=== PATIENT | female | born 1960 | race Caucasian/White ===

== ENCOUNTER 2024-05-24 13:37 | Outpatient (AMB) | payer MEDICARE, MEDICAID, SELFPAY ==
[2024-05-24 14:17] VITALS: BP 130/89; PULSE 91; RESP 18; TEMP 36.1; O2SAT 94; BMI 33.2
--- NOTE | 2024-05-24 14:17 | ORTHONT_ITS ---
Vital signs 05/24/24 14:17 Height 1.52 m Height Method Stated Weight 77.167 kg Weight Measurement Method Standing Scale BMI 33.2 BP 130/89 H Blood Pressure Source Automatic Cuff Blood Pressure Location Right Upper Arm Position Sitting Respiration 18 Pulse 91 Pulse Source Monitor Temp 96.9 F Temp Source Temporal Artery Scan Pulse Oximetry (%) 94 L Oxygen Delivery Method Room Air Med/Allergies Allergies & Medications Allergies No Known Allergies Allergy (Verified 05/24/24 14:18) Medication Reconciliation gabapentin 800 mg tablet 800 mg PO TID #30 tabs 12/14/21 [Rx] acetaminophen 500 mg capsule 500 mg PO Q6H PRN 05/24/24 [History Confirmed 05/24/24] amlodipine 10 mg tablet 10 mg PO QDAY 05/24/24 [History Confirmed 05/24/24] cholecalciferol (vitamin D3) 50 mcg (2,000 unit) capsule 50 mcg PO QDAY 05/24/24 [History Confirmed 05/24/24] cyclobenzaprine 10 mg tablet 10 mg PO HS 05/24/24 [History Confirmed 05/24/24] lisinopril 10 mg-hydrochlorothiazide 12.5 mg tablet 1 tab PO QDAY 05/24/24 [History Confirmed 05/24/24] metoprolol succinate 100 mg tablet,extended release 24 hr 100 mg PO QDAY 05/24/24 [History Confirmed 05/24/24] nortriptyline 50 mg capsule (Pamelor) 50 mg PO QDAY 05/24/24 [History Confirmed 05/24/24] Subjective Visit Visit for: new patient and knee Immunization / Flu Flu Vaccine in the Last 12 Months: No Flu Vaccine Exclusion Criteria: No Exclusion Criteria History of Present Illness Chief complaint: Right knee pain Date of injury / onset of symptoms: JUL 2023 Tabatha is a pleasant 64-year-old female with right knee pain that has been ongoing for at least 8 months. This occurred after a hiking injury. She is now using a walker and was previously not using a walker. She has a history of a TIA. She reports it is very difficult to bear weight because of the pain. He had an MRI which demonstrated meniscal tear and is here due to this. Personal History Occupation: RETIRED Red flag PMH: none Pain Pain level (0-10): 8 Pain duration: CONSTANT Pain location: inside (medial), outside (lateral) and anterior Pain quality: sharp, dull and aching Pain timing: increases with activity Ambulatory data Ambulatory device: none Treatments Improvement with previous injections: No Improvement with PT: No Improvement with NSAIDS: n/a Review of Systems Review of Systems: All systems negative unless otherwise noted in HPI. Exam Exam Patient is in no acute distress and is cooperative with the examination today. Breathing is nonlabored. Patient has a normal mood and affect. Bilateral extremities were evaluated and demonstrates sensation intact to light touch. Palpable pedal pulses are present. No significant edema is present. Bilateral hips were examined. The patient has no pain with log roll of the hips. Internal rotation to 30 degrees and external rotation to 30 degrees is painless. Negative FADIR. Left knee was examined today. The left knee is in reasonable alignment. Range of motion from 0-120 degrees. Knee is stable to varus and valgus as well as AP translation with <5mm. Patient has a negative McMurrays. There is no pain with patellofemoral compression and no crepitus noted. The knee is nontender to palpation. The right knee was also examined. The right knee is in [varus] alignment. Range of motion from [0-115] degrees. Knee is stable to varus and valgus as well as AP translation with <5mm. Patient has a [negative] McMurrays. There is [no] pain with patellofemoral compression and [no] crepitus noted. The knee is [tender] to palpation [medially]. An MRI demonstrates a posterior horn of the medial meniscus tear. She has x- rays that are nonweightbearing. This is not able to view. Assessment and Plan Problem List (1) Arthritis of right knee: Status: Acute (2) History of meniscal tear: Status: Acute Plan: Patient is a 64-year-old female with right knee pain after a hiking injury. She is MRI above the posterior horn medial meniscus tear. Is very difficult for her to bear weight. I would like to get weightbearing x-rays. We like to try nonoperative treatment including an injection at the next visit. We will probably start her on anti-inflammatories while We will see her in a week or two. Advanced Care Planning Discussion Advance care planning discussed with:: patient Office Procedures GNS Level of Care Nursing/Assessment Patient Status: Established Patient Nursing Assessment/Reassesment: Medication Reconciliation, Update PMH in EMR and Vital Signs Coordination of Care: Complex Care and Chronic Disease 1-5, Education Complex Pt/Fam, Consent,records obtained, informed consent, Results/Orders obtained and Staff clarify orders Established Patient Charge Established Patient Point Assignment: 95 Established Patient Point Charge: EP Level 3 (80-115) Past Medical History Past Medical History Have you ever been diagnosed with any of the following: Neurological Problems Cerebrovascular Accident (CVA): Yes (10 years ago) Cardiology Problems Congestive Heart Failure: No Hypertension: Yes Respiratory Problems Chronic Obstructive Pulmonary Disease (COPD): No Smoking: No Smoking Exposure: No Genital/Urinary Problems Renal Disease: No Kidney Stones: Yes Endocrine Problems Diabetes Mellitus Type 1: No Diabetes Mellitus Type 2: No Surgical History Hysterectomy: Yes
== END 2024-05-24 14:52 | disposition home or self-care (01) ==
LOC: HODSRG 13:37
PROVIDERS: PCP Nurse Practitioner Family; Referring Provider Nurse Practitioner Family; Supervising Provider Orthopaedic Surgery Adult Reconstructive Orthopaedic Surgery; Visit Provider Orthopaedic Surgery Adult Reconstructive Orthopaedic Surgery
DX: M17.11 Unilateral primary osteoarthritis, right knee (principal); M25.561 Pain in right knee; S83.249D Other tear of medial meniscus, current injury, unspecified knee, subsequent encounter; X58.XXXD Exposure to other specified factors, subsequent encounter; I10 Essential (primary) hypertension; Z86.73 Personal history of transient ischemic attack (TIA), and cerebral infarction without residual deficits
CPT/HCPCS: 99213; G0463

== ENCOUNTER 2024-05-31 10:03 | Outpatient (AMB) | payer MEDICARE, MEDICAID, SELFPAY ==
[2024-05-31 10:22] VITALS: BP 110/74; PULSE 92; RESP 18; TEMP 36.4; O2SAT 95; BMI 33.4
--- NOTE | 2024-05-31 10:22 | ORTHONT_ITS ---
Vital signs 05/31/24 10:22 Height 1.52 m Height Method Stated Weight 77.167 kg Weight Measurement Method Standing Scale BMI 33.4 BP 110/74 Blood Pressure Source Automatic Cuff Blood Pressure Location Right Upper Arm Position Sitting Respiration 18 Pulse 92 Pulse Source Monitor Temp 97.6 F Temp Source Temporal Artery Scan Pulse Oximetry (%) 95 Oxygen Delivery Method Room Air Med/Allergies Allergies & Medications Allergies No Known Allergies Allergy (Verified 05/31/24 10:25) Medication Reconciliation gabapentin 800 mg tablet 800 mg PO TID #30 tabs 12/14/21 [Rx Confirmed 05/31/24] acetaminophen 500 mg capsule 500 mg PO Q6H PRN 05/24/24 [History Confirmed 05/31/24] amlodipine 10 mg tablet 10 mg PO QDAY 05/24/24 [History Confirmed 05/31/24] cholecalciferol (vitamin D3) 50 mcg (2,000 unit) capsule 50 mcg PO QDAY 05/24/24 [History Confirmed 05/31/24] cyclobenzaprine 10 mg tablet 10 mg PO HS 05/24/24 [History Confirmed 05/31/24] lisinopril 10 mg-hydrochlorothiazide 12.5 mg tablet 1 tab PO QDAY 05/24/24 [History Confirmed 05/31/24] metoprolol succinate 100 mg tablet,extended release 24 hr 100 mg PO QDAY 05/24/24 [History Confirmed 05/31/24] nortriptyline 50 mg capsule (Pamelor) 50 mg PO QDAY 05/24/24 [History Confirmed 05/31/24] meloxicam 7.5 mg tablet 7.5 mg PO QDAY #45 tabs 05/31/24 [Rx] Subjective Visit Visit for: follow up visit and x-rays Immunization / Flu Flu Vaccine in the Last 12 Months: No Flu Vaccine Exclusion Criteria: No Exclusion Criteria History of Present Illness Chief complaint: XRAY RESULTS Date of injury / onset of symptoms: JUL 2023 Tabatha is a pleasant 64-year-old female with right knee pain that has been ongoing for at least 8 months. This occurred after a hiking injury. She is now using a walker and was previously not using a walker. She has a history of a TIA. She reports it is very difficult to bear weight because of the pain. He had an MRI which demonstrated meniscal tear and is here due to this. Personal History Occupation: RETIRED Red flag PMH: none Pain Pain level (0-10): 9 Pain duration: CONSTANT Pain location: inside (medial) Pain quality: sharp Pain timing: night, increases with activity and stairs Associated signs & symptoms: none Ambulatory data Ambulatory device: walker Treatments Improvement with previous injections: No Improvement with PT: No Improvement with NSAIDS: no Review of Systems Review of Systems: All systems negative unless otherwise noted in HPI. Exam Exam Patient is in no acute distress and is cooperative with the examination today. Breathing is nonlabored. Patient has a normal mood and affect. Bilateral extremities were evaluated and demonstrates sensation intact to light touch. Palpable pedal pulses are present. No significant edema is present. Bilateral hips were examined. The patient has no pain with log roll of the hips. Internal rotation to 30 degrees and external rotation to 30 degrees is painless. Negative FADIR. Left knee was examined today. The left knee is in reasonable alignment. Range of motion from 0-120 degrees. Knee is stable to varus and valgus as well as AP translation with <5mm. Patient has a negative McMurrays. There is no pain with patellofemoral compression and no crepitus noted. The knee is nontender to palpation. The right knee was also examined. The right knee is in [varus] alignment. Range of motion from [0-115] degrees. Knee is stable to varus and valgus as well as AP translation with <5mm. Patient has a [negative] McMurrays. There is [no] pain with patellofemoral compression and [no] crepitus noted. The knee is [tender] to palpation [medially]. An MRI demonstrates a posterior horn of the medial meniscus tear. X-rays demonstrate advanced medial joint space narrowing and osteophytes. Assessment and Plan Problem List (1) History of meniscal tear: Status: Acute (2) Arthritis of right knee: Status: Acute Plan: Tabatha is a pleasant 64-year-old female with right knee pain and significant medial compartment arthritis. We discussed nonoperative and operative options. We will start with a cortisone injection on the right and meloxicam Recommend knee cortisone injection as patient would like to proceed with conservative treatment at this time. The risks and benefits of the procedure were reviewed with the patient and patient gave verbal consent to continue with the procedure. Procedure: performed by Dr. Lang Using sterile technique the Right knee was thoroughly prepped with alcohol, and approximately 1 cc of Kenalog 40 mg/mL and 4 cc of 1% lidocaine was injected without resistance into the medial tibial femoral joint space. The patient tolerated the procedure. Advanced Care Planning Discussion Advance care planning discussed with:: patient Office Procedures GNS Level of Care Nursing/Assessment Patient Status: Established Patient Nursing Assessment/Reassesment: Medication Reconciliation, Update PMH in EMR and Vital Signs Coordination of Care: Complex Care and Chronic Disease 1-5, Education Complex Pt/Fam, Consent,records obtained, informed consent, Lab and Imaging orders, Results/Orders obtained and Staff clarify orders Established Patient Charge Established Patient Point Assignment: 110 Established Patient Point Charge: EP Level 3 (80-115) Surgical Proc/IM SQ injection Major Surgical Procedure: Yes (KNEE INJECTION) Medication Given Medication Given Medication Given: Yes Documented Dose Given: 4 Route: Infiitration Medication Given Medication Given Medication Given: Yes Documented Dose Given: 1 Route: Infiitration Office Meds Xylocaine 10 mg/mL (1 %) injection solution Performing Provider: Hubert Lang MD Performing Location: [facility] Administered by: Hubert Lang MD on 05/31/24 10:46 Dose Route Admin Location Dispensed Lot Number Expiration Date [facility] [employer] 20 mL Infiltration 20 mL [id number] 02/08/27 02648-293-23 [facility] triamcinolone acetonide 40 mg/mL suspension for injection Performing Provider: Hubert Lang MD Performing Location: [facility] Administered by: Hubert Lang MD on 05/31/24 10:46 Dose Route Admin Location Dispensed Lot Number Expiration Date [facility] [employer] 40 mg Infiltration 1 mL [id number] 02/08/26 [address]-0 [employer] Past Medical History Past Medical History Have you ever been diagnosed with any of the following: Neurological Problems Cerebrovascular Accident (CVA): Yes (10 years ago) Cardiology Problems Congestive Heart Failure: No Hypertension: Yes Respiratory Problems Chronic Obstructive Pulmonary Disease (COPD): No Smoking: No Smoking Exposure: No Genital/Urinary Problems Renal Disease: No Kidney Stones: Yes Endocrine Problems Diabetes Mellitus Type 1: No Diabetes Mellitus Type 2: No Surgical History Hysterectomy: Yes
== END 2024-05-31 10:43 | disposition home or self-care (01) ==
PROVIDERS: PCP Nurse Practitioner Family; Referring Provider Nurse Practitioner Family; Supervising Provider Orthopaedic Surgery Adult Reconstructive Orthopaedic Surgery; Visit Provider Orthopaedic Surgery Adult Reconstructive Orthopaedic Surgery
DX: M17.11 Unilateral primary osteoarthritis, right knee (principal); M25.561 Pain in right knee; Z87.828 Personal history of other (healed) physical injury and trauma; I10 Essential (primary) hypertension; Z86.73 Personal history of transient ischemic attack (TIA), and cerebral infarction without residual deficits
CPT/HCPCS: 20610; 99213; J3301; J3490; G0463

== ENCOUNTER 2024-06-12 10:03 | Inpatient (IN) | payer MEDICARE, MEDICAID, SELFPAY ==
[2024-06-12] VITALS (20 sets, daily range): BP systolic 107–166; BP diastolic 75–112; PULSE 96–127; RESP 16–34; TEMP 36.2–37.2; O2SAT 94–99; BMI 35.1; BMI 36.2
--- NOTE | 2024-06-12 10:19 | EKG_ITS ---
[facility] Test Date: 2024-06-12 Pat Name: ALIZE JOSE Department: Room: - Gender: Female [employer]grade Roller Operator: : [id number] Requested By: Obinna Egan Order Number: [id number] Reading MD: Obinna Egan Measurements Intervals [place] Rate: 120 P: 14 WI: 160 QRS: -44 QRSD: 158 T: 87 QT: 341 QTc: 484 Interpretive Statements SINUS TACHYCARDIA MARKED LEFT AXIS DEVIATION [QRS AXIS < -30] LEFT BUNDLE BRANCH BLOCK [120+ ms QRS DURATION, 80+ ms Q/S IN V1/V2, 85+ ms R IN I/aVL/V5/V6] Compared to ECG 08/08/2022 23:03:06 Left bundle-branch block now present Sinus rhythm no longer present Left ventricular hypertrophy no longer present ST (T wave) deviation no longer present Myocardial infarct finding no longer present /store/S0/[id number]/ecg/[id number].pdf
--- NOTE | 2024-06-12 10:36 | PC.NURSE ---
patient brought in by ambulance for shortness of breath that started yesterday morning.
[2024-06-12 10:37] LABS: Lactate (Lactic Acid) 2.4 mMol/L (0.4-2.0)
[2024-06-12 10:45] LABS: Basophils # (Auto) 0.2 Thou/mm3 (0.0-0.2); Basophils % (Auto) 1 % (0-2.5); Eosinophils # (Auto) 0.3 Thou/mm3 (0.0-0.5); Eosinophils % (Auto) 2 % (0-10); Hematocrit 38.1 % (36.0-46.0); Hemoglobin 12.2 g/dL (12.0-16.0); Immature Granulocytes % (Auto) 1 % (0-0); Lymphocytes # (Auto) 1.7 Thou/mm3 (1.0-4.8); Lymphocytes % (Auto) 8 % (10-50); Mean Corpuscular Hemoglobin 28.5 pg (25.0-35.0); Mean Corpuscular Volume 89 fL (80-100); Monocytes # (Auto) 1.4 Thou/mm3 (0.0-0.8); Monocytes % (Auto) 7 % (0-12); Neutrophils # (Auto) 16.9 Thou/mm3 (1.8-7.7); Neutrophils % (Auto) 82 % (37-80); Nucleated Red Blood Cell % 0 /100 WBC (0); Platelet Count 179 Thou/mm3 (140-440); RDW Standard Deviation 50.2 fL (36.4-46.3); Red Blood Count 4.28 Miln/mm3 (4.00-5.20); White Blood Count 20.7 Thou/mm3 (3.6-11.0)
--- NOTE | 2024-06-12 10:50 | PC.NURSE ---
Patient having severe respiratory distress, patient only able to speak 1-2 words at a time and states she is having trouble taking a deep breath, Dr. Egan and Dr. Juarez at bedside, new orders received, moved patient to room 5 and will call RT to place patient on bipap.
--- NOTE | 2024-06-12 10:54 | XR_ITS ---
Examination: AP chest single view Technique: Sitting portable AP chest single view Exam date and time: June 12, 2024 1111 hrs. Indications: Shortness of breath today. Findings: Mild to moderate CHF Mild enlargement cardiac contour with prominent vascular congestion including central vascular engorgement and perihilar edema Large right pleural effusion small left pleural effusion Impression: [id number] CHF
--- NOTE | 2024-06-12 11:05 | ECHO_ITS ---
Transthorac ic Echo Report Ht 58 Wt 16 (in): (lb): 8 Exam Location: Portable Statu Preadmit s: Sonograph Hilda Carranza er: Indicatio ns: Procedure Performed: BP 138 / 89 HR 103 : : Rhyth Atrial fibrillation m: Technical Technically difficult study Quality: MEASUREMEN (Male / Female) Normal TS Values 2D ECHO LV Diastolic Diameter PLAX 4.9 cm 4.2 - 5.9 / 3.9 - 5.3 cm LV Systolic Diameter PLAX 4.0 cm IVS Diastolic Thickness 0.9 cm 0.6 - 1.0 / 0.6 - 0.9 cm LVPW Diastolic Thickness 0.9 cm 0.6 - 1.0 / 0.6 - 0.9 cm LV Relative Wall Thickness 0.4 LVOT Diameter 1.9 cm LA Volume Index 32.7 cm?/m? 16 - 28 cm?/m? Ascending Aorta Diameter 3.6 cm M-MODE Aortic Root Diameter MM 2.3 cm LA Systolic Diameter MM 3.6 cm LA Ao Ratio MM 1.6 AV Cusp Separation MM 2.1 cm DOPPLER AV Peak Velocity 121.0 cm/s AV Peak Gradient 5.9 mmHg AV Mean Gradient 3.0 mmHg AV Velocity Time Integral 18.5 cm LVOT Peak Velocity 66.0 cm/s LVOT Peak Gradient 1.7 mmHg LVOT Velocity Time Integral 11.9 cm LVOT Cardiac Index 1924.8 cm?/min?m? AV Area Cont Eq vti 1.8 cm? AV Area Cont Eq pk 1.5 cm? MV Peak Velocity 168.0 cm/s MV Peak Gradient 11.3 mmHg MV Mean Velocity 99.8 cm/s MV Mean Gradient 5.0 mmHg MV Area PHT 5.6 cm? MR Peak Velocity 360.0 cm/s MR Peak Gradient 51.8 mmHg Mitral E Point Velocity 148.0 cm/s Mitral A Point Velocity 0.7 cm/s Mitral E to A Ratio 218.6 LV E' Lateral Velocity 8.3 cm/s Mitral E to LV E' Lateral Ratio 17.9 LV E' Septal Velocity 6.0 cm/s Mitral E to LV E' Septal Ratio 24.7 TR Peak Velocity 201.0 cm/s TR Peak Gradient 16.2 mmHg FINDING S Left Ventricle Normal left ventricular size, wall thickness. Moderate systolic dysfunction. Akinesis anterior septal. Moderate hypokinesis lateral wall. The ejection fraction is visually estimated at 35-40%. Right Ventricle The right ventricle is normal in size and systolic function. The estimated right ventricular systolic pressure, 21mmHg. RAP 5. Left Atrium The left atrium is normal by two-dimensional, color flow and Doppler imaging with no structural abnormalities, no thrombus formation present. Right Atrium The right atrium is normal by two-dimensional imaging, color flow and Doppler imaging with no structural abnormalities, no thrombus formation present. Atrial Septum The interatrial septum appears normal with no evidence of a shunt. Aort a The ascending aorta is mildly dilated. Mitral Valve The mitral valve is mildly MAC. There is mild mitral valve regurgitation. Aortic Valve The aortic valve is trileaflet and normal by two-dimensional, color flow and Doppler interrogation. There is no significant aortic valve regurgitation. Tricuspid Valve The tricuspid valve is normal by two-dimensional, color flow and Doppler interrogation. There is trace tricuspid valve regurgitation. Pulmonic Valve There is no significant pulmonic valve regurgitation. Vesse ls The pulmonary artery appears normal. The inferior vena cava pulmonary and hepatic veins appear normal. Pericard ium The pericardium is normal by two-dimensional imaging. There is no significant pericardial effusion. Other Findings Pleural effusion present. CONCLUSIO NS Indication: CHF Normal LV size. Severe systolic dysfunction. EF 30-35%. Septal and lateral wall dysynchrony. Cannot determine dystolic function due to AFib. Normal RV size and function. Ascending aorta mildly dilated. 3.6cm. Mild MAC. Mild MR Trace TR. Pleural effusion present. Vikram Delarosa (Electronically Signed) Final Date: 13 June 2024 16:45
[2024-06-12 11:15] LABS: INR 1.1 (0.9-1.3); Partial Thromboplastin Time 28.7 Seconds (22.0-36.0); Prothrombin Time 12.2 Seconds (9.0-12.2)
[2024-06-12] MEDS: NITROGLYCERIN 0.4 MG SUBL BTL #25 SL ×2 (11:17→11:27)
[2024-06-12] MEDS: ENALAPRILAT INJ 1.25 MG/ML VIAL 0.625 MG IVP (11:21)
[2024-06-12] MEDS: hydrALAZINE INJ 20 MG/ML VIAL 10 MG IV (11:21)
[2024-06-12] MEDS: NITROGLYCERIN OINT 2% 1 INCH PACKET 2 INCH TOP (11:22)
[2024-06-12 11:23] LABS: Anion Gap 9 (7-16); BUN/Creatinine Ratio 14 Ratio (12-20); Blood Urea Nitrogen 14 mg/dL (9-23); Carbon Dioxide 25.7 mMol/L (20.0-31.0); Chloride 104 mMol/L (98-107); Potassium 4.3 mMol/L (3.4-5.1); Sodium 139 mMol/L (136-145)
[2024-06-12 11:24] LABS: Alanine Aminotransferase 22 U/L (10-49); Albumin, Serum 4.6 gm/dL (3.4-4.8); Albumin/Globulin Ratio 1.8 (1.2-2.2); Alkaline Phosphatase 93 U/L (46-116); Aspartate Amino Transferase 18 U/L (0-34); Bilirubin,Total 0.6 mg/dL (0.3-1.2); Calcium 9.8 mg/dL (8.3-10.6); Calcium (Corrected) 9.8 mg/dL (8.5-10.1); Estimated Creatinine Clearance 48.1 mL/min (>60); Globulin 2.5 gm/dL (2.3-3.5); Glucose 137 mg/dL (74-106); Osmolality,Calculated 280 (275-295); Total Protein 7.1 gm/dL (5.7-8.2); Troponin I 0.044 ng/mL (0.0-0.045); eGFR > 60 See Note
[2024-06-12 11:31] LABS: Procalcitonin 0.08 ng/ml (0.0-0.49)
[2024-06-12 11:34] LABS: Base Excess 0 (-3-3); HCO3 23 mEq/L (20-26); Inspired Oxygen, FIO2 50 %; O2 Saturation 98 % (91-98); PCO2 34 mmHg (32.0-48.0); PO2 135 mmHg (83-108); pH, Arterial 7.45 (7.35-7.45)
[2024-06-12 11:35] LABS: Allen Test Not Performed; Puncture Site Left Radial
--- NOTE | 2024-06-12 11:36 | PC.NURSE ---
Patient feeling better on bipap, patient denies chest pain at this time, call light within reach.
[2024-06-12] MEDS: FUROSEMIDE INJ 10 MG/ML 4ML VIAL 40 MG IVP ×2 (11:47→20:49)
--- NOTE | 2024-06-12 11:47 | PD.EDADULT ---
ED General RME/HPI General Chief complaint: Shortness of Breath/Dyspnea Stated complaint: sob Time Seen by Provider: 06/12/24 10:31 Arrival date/time: 06/12/24 10:03 RME / HPI RME / HPI narrative: A 64-year-old female with past medical history of hypertension, stroke 5 years ago,COVID pneumonia, and osteoporosis presented in the ED brought in by EMS on 06/12/2024 with chief complaint of shortness of breath and chest pain. Patient states that shortness of breath started 2 days ago. She felt pressure across her chest started 2 days ago. She felt like she could not breathe . This chest pressure was not associated with any headache, fever, chills, nausea, vomiting, diarrhea or constipation. This morning at around 6 AM, the morning of 06/15/2020 on the morning of 06/12/2024, patient started to note sharp chest pain that radiated to her left shoulder. Denies palpitations, diaphoresis, nausea/vomiting, or dizziness. Patient endorses that she had 1 sick contact over the past week, her neighbor. The neighbor had a cough and sore throat. Denies recent travel. Patient denies any allergies. She required 2 DuoNeb treatments in the ambulance, which were given. Patient also required titrating from nasal cannula to BiPAP in the ED. Home medications: metoprolol, nortriptyline, Flexeril, gabapentin. She was recently taken off amlodipine and another antihypertensive by primary care provider, which likely contributed to recent presentation. Surgical history includes , appendectomy, and tubal ligation. Social history includes occasional alcohol use. Denies smoking or illicit drug use. Contacted hospitalist team for admission for new onset CHF exacerbation and pulmonary hypertension. MD complaint: Shortness of breath and chest pain Location: chest Radiation: other Severity: moderate Severity scale (1-10): 6 Quality: sharp Consistency: intermittent Exacerbating factors: none Related Data Home Medications ?Medication ?Instructions ?Recorded ?Confirmed acetaminophen 500 mg capsule 500 mg PO Q6H PRN Breakthrough 05/24/24 06/12/24 Pain, Mild cholecalciferol (vitamin D3) 50 50 mcg PO QWEEK 05/24/24 06/12/24 mcg (2,000 unit) capsule cyclobenzaprine 10 mg tablet 10 mg PO BID 05/24/24 06/12/24 metoprolol succinate 100 mg 100 mg PO HS 05/24/24 06/12/24 tablet,extended release 24 hr nortriptyline 50 mg capsule 100 mg PO HS 05/24/24 06/13/24 (Pamelor) gabapentin 800 mg tablet 100 mg PO HS 06/12/24 06/13/24 meloxicam 7.5 mg tablet 7.5 mg PO HS 06/12/24 06/12/24 sodium zirconium cyclosilicate 10 10 g PO DAILY 06/12/24 06/12/24 gram oral powder packet (Lokelma) Allergies Allergy/AdvReac Type Severity Reaction Status Date / Time Penicillins Allergy Severe Hives Verified 06/12/24 10:46 Review of Systems Review of Systems Systems Reviewed: All systems reviewed, normal except as documented Past Medical History Family History OTHER FAMILY HX: None Surgical History SURGICAL: Positive Hysterectomy and Section Travel History EBOLA RISK: No Past Medical History Comments PMH COMMENT: Per previous visit note: Past Medical History NEUROLOGIC: Positive Neurological Disorders and Cerebrovascular Accident (10 years ago) CARDIAC: Positive Hypertension GENITOURINARY: Positive Kidney Stones Surgical History SURGICAL: Positive Gastric Bypass Surgery, Hysterectomy and Section ED Exam Narrative Physical exam: Constitutional: well-developed, well-nourished, in mild distress, lying in bed. HEENT: NCAT, EOMI, reactive round pupils b/l, patent nares b/l, moist mucous membranes, on 6L N/c--> Saturating 99% on Bipap Lung: No wheezing, b/l crackles lower lung lobes, dullness on auscultation in right lower lung lobe. Heart: Regular S1S2, no murmurs, gallops, or rubs. +JVD. Abdomen: Soft, non-distended, non-tender, ++ BS all 4 quadrants. Extremities: No cyanosis, clubbing, No edema of b/l UE and LE, 2+ dorsalis pedis pulses present b/l Neurologic: No focal sensory or motor deficits noted, alert and oriented to person, place, time. appropriate affect Skin: Warm, dry, no lesions or rashes noted. Course Quality Measures none Orders Category Date Time Status Patient Condition Routine Admission 06/12/24 14:10 Ordered Tank Truck [employer] Q4H START 00 Care 06/12/24 10:21 Active Continuous Pulse Oximetry NOW Care 06/12/24 10:21 Completed EKG (ED ONLY) *Do not use* NOW Care 06/12/24 10:19 Completed Flu & Pneumonia Vaccine Screen ONCE Care 06/12/24 14:15 Completed Villagomez [Urinary Catheter] QS Care 06/12/24 11:39 Active Insert IV NOW Care 06/12/24 10:21 Active Miscellaneous Nursing Order NOW Care 06/12/24 13:32 Completed Miscellaneous Nursing Order NOW Care 06/12/24 16:02 Completed Miscellaneous Nursing Order NOW Care 06/12/24 16:07 Completed Notify provider NEEDED Care 06/12/24 14:10 Active Strict Intake and Output Q1H Care 06/12/24 10:30 Ordered Strict Intake and Output Q1H Care 06/12/24 11:30 Ordered Strict Intake and Output Q1H Care 06/12/24 12:30 Ordered Strict Intake and Output Q1H Care 06/12/24 13:30 Ordered Strict Intake and Output Q1H Care 06/12/24 14:30 Ordered Strict Intake and Output Q1H Care 06/12/24 15:30 Ordered Strict Intake and Output Q1H Care 06/12/24 16:30 Ordered Strict Intake and Output Q1H Care 06/12/24 17:30 Ordered Strict Intake and Output Q1H Care 06/12/24 18:30 Ordered Strict Intake and Output Q1H Care 06/12/24 19:30 Ordered Strict Intake and Output Q1H Care 06/12/24 20:30 Ordered Strict Intake and Output Q1H Care 06/12/24 21:30 Ordered Strict Intake and Output Q1H Care 06/12/24 22:30 Ordered Strict Intake and Output Q1H Care 06/12/24 23:30 Ordered Strict Intake and Output Q1H Care 06/13/24 00:30 Ordered Strict Intake and Output Q1H Care 06/13/24 01:30 Ordered Strict Intake and Output Q1H Care 06/13/24 02:30 Ordered Strict Intake and Output Q1H Care 06/13/24 03:30 Ordered Strict Intake and Output Q1H Care 06/13/24 04:30 Ordered Strict Intake and Output Q1H Care 06/13/24 05:30 Ordered Strict Intake and Output Q1H Care 06/13/24 06:30 Ordered Strict Intake and Output Q1H Care 06/13/24 07:30 Ordered Strict Intake and Output Q1H Care 06/13/24 08:30 Ordered Strict Intake and Output Q1H Care 06/13/24 09:30 Ordered Consult to Cardiology Routine Cons 06/12/24 14:23 Ordered Diet Low Sodium (2gm) Diet 06/12/24 Dinner Completed CA echo doppler complete Stat Exams 06/12/24 11:05 Completed EKG (ED Only) Stat Exams 06/12/24 10:19 Draft XR chest 1V portable Stat Exams 06/12/24 10:54 Completed ABG [Arterial Blood Gas] Stat Lab 06/12/24 11:25 Completed BNP [B-Type Natriuretic Peptide] Stat Lab 06/12/24 10:12 Completed Blood Culture (Lab) Stat Lab 06/12/24 10:12 Results CBC AM DRAW Lab 06/13/24 05:20 Completed CBC AM DRAW Lab 06/14/24 05:00 Completed CBC AM DRAW Lab 06/15/24 05:32 Completed CBC Stat Lab 06/12/24 10:12 Completed Comprehensive Metabolic Panel AM DRAW Lab 06/13/24 05:20 Completed Comprehensive Metabolic Panel AM DRAW Lab 06/14/24 05:00 Completed Comprehensive Metabolic Panel AM DRAW Lab 06/15/24 05:32 Completed Comprehensive Metabolic Panel Stat Lab 06/12/24 10:12 Completed Lactate (Lactic Acid) Stat Lab 06/12/24 10:12 Completed Lactic Acid, 3 HR Stat Lab 06/12/24 13:49 Completed Lipid Panel AM DRAW Lab 06/13/24 05:20 Completed Magnesium AM DRAW Lab 06/13/24 05:20 Completed Partial Thromboplastin Time Stat Lab 06/12/24 10:12 Completed Procalcitonin Stat Lab 06/12/24 10:12 Completed Prothrombin Time with INR Stat Lab 06/12/24 10:12 Completed Thyroid Stimulating Hormone AM DRAW Lab 06/13/24 05:20 Completed Troponin I Stat Lab 06/12/24 10:12 Completed Urinalysis Stat Lab 06/12/24 11:53 Completed Urine Culture Stat Lab 06/12/24 11:53 Completed Acetaminophen Tab [Tylenol Tab] Med 06/12/24 14:10 Active 650 mg PO Q6H PRN Azithromycin Inj [Zithromax Inj] 500 mg Med 06/12/24 11:45 Discontinued Sodium Chloride 0.9% 250 ml [Ns] 250 ml IV X1 Doxycycline Inj [Vibramycin Inj] 100 mg Med 06/12/24 14:30 Discontinued Sodium Chloride 0.9% (P) [NS 0.9% mini bag] 100 ml IV BID Enalaprilat Inj [Vasotec Inj] Med 06/12/24 11:01 Discontinued 0.625 mg IVP X1 ONE Furosemide Inj [Lasix Inj] Med 06/12/24 21:00 Discontinued 40 mg IVP BID Furosemide Inj [Lasix Inj] Med 06/12/24 11:37 Discontinued 40 mg IVP X1 ONE Heparin Inj Med 06/12/24 14:15 Discontinued 5,000 unit SC Q12H Heparin Inj Med 06/12/24 21:00 Discontinued 5,000 unit SC Q12HR Midodrine [Proamatine] Med 06/12/24 14:15 Discontinued 5 mg PO BID PRN Nitroglycerin Oint 2% [Nitro-paste Oint 2%] Med 06/12/24 11:15 Discontinued 2 inch TOP X1 ONE Nitroglycerin [Nitrostat 1/150] Med 06/12/24 10:56 Discontinued 0.4 mg SL X1 ONE Nitroglycerin [Nitrostat 1/150] Med 06/12/24 11:27 Discontinued 0.4 mg SL X1 ONE Ondansetron Inj [Zofran Inj] Med 06/12/24 14:15 Active 4 mg IV Q6H PRN Pantoprazole Inj [Protonix Inj] Med 06/13/24 09:00 Active 40 mg IVP QDAY cefTRIAXone/D5w 1gm IV premix [Rocephin/D5w 1gm IV Med 06/13/24 09:00 Active premix] 50 ml IV DAILY cefTRIAXone/D5w 1gm IV premix [Rocephin/D5w 1gm IV Med 06/12/24 11:44 Discontinued premix] 50 ml IV X1 hydrALAZINE INJ [Apresoline Inj] Med 06/12/24 10:56 Discontinued 10 mg IV X1 ONE Code Status Routine Oth 06/12/24 14:10 Completed BiPAP / CPAP NOW RT 06/12/24 11:05 Active Oxygen Delivery DAILY RT 06/12/24 14:11 Active Oxygen Delivery NOW RT 06/12/24 10:21 Active Transfer Order Routine Transfer 06/12/24 15:50 Completed Vital Signs Vital signs: Vital Signs Temperature 99 F 06/12/24 10:04 Pulse Rate 127 H 06/12/24 10:04 Respiratory Rate 24 H 06/12/24 10:04 Blood Pressure 161/112 H 06/12/24 10:04 Pulse Oximetry (%) 94 L 06/12/24 10:04 Oxygen Delivery Method Nasal Cannula 06/12/24 10:04 Oxygen Flow Rate 6 06/12/24 10:04 [facility] Patient data External records reviewed:: None Clinical information provided by:: patient Social determinants that could affect healthcare access:: none Patient has the following chronic illnesses:: Hypertension osteoporosis CVA How is presenting disease/condition affected by chronic disease/condition?: exacerbated by Evaluation data The following diagnostics were reviewed and interpreted by me:: lab results, radiology exam(s) and EKG tracing(s) Lab and/or radiology exams considered but not ordered:: None Interpretation Summary: CBC: WBC 20.7 ABG: pH 7.45, pCO2 34, pO2 135, bicarb 23, O2 sat 98%. Lactic acid 2.4 BNP 1048. Chest x-ray: Mild to moderate CHF Mild enlargement cardiac contour with prominent vascular congestion including central vascular engorgement and perihilar edema Large right pleural effusion small left pleural effusion EKG: Sinus tachycardia, heart rate 120. Medications Medications considered but not ordered:: None Medication administrations:: Medication Administration History Acetaminophen (Acetaminophen 325 Mg Tablet) 650 mg PO Q6H PRN PRN Reason: Fever >100.3 Stop: 07/12/24 14:09 Last Admin: 06/16/24 04:45 Dose: 650 mg Documented By: Admin: 06/15/24 09:08 Dose: 650 mg Documented By: Admin: 06/15/24 00:11 Dose: 650 mg Documented By: Admin: 06/13/24 22:45 Dose: 650 mg Documented By: Admin: 06/13/24 13:28 Dose: 650 mg Documented By: Admin: 06/13/24 05:24 Dose: 650 mg Documented By: NELY Bismuth Subsalicylate (Bismuth Subsalicyl 1 Tablet (Pepto-Bismol)) 1 tab PO Q1HR PRN PRN Reason: UPSET STOMACH/INDIGESTION Stop: 07/15/24 16:14 Last Admin: 06/16/24 04:48 Dose: 1 tab Documented By: Admin: 06/15/24 18:12 Dose: 1 tab Documented By: REYNA Dapagliflozin (Dapagliflozin Propanediol 5 Mg Tablet) 5 mg PO QAM [facility] Stop: 07/15/24 14:59 Last Admin: 06/16/24 08:41 Dose: 5 mg Documented By: Admin: 06/15/24 17:30 Dose: 5 mg Documented By: REYNA Furosemide (Furosemide Inj 10 Mg/Ml 4ml Vial) 40 mg IVP QDAY STEPAN Stop: 07/15/24 08:59 Gabapentin (Gabapentin 100 Mg Capsule) 100 mg PO [facility] Stop: 07/13/24 20:59 Last Admin: 06/15/24 21:02 Dose: 100 mg Documented By: Admin: 06/14/24 20:33 Dose: 100 mg Documented By: Admin: 06/13/24 20:15 Dose: 100 mg Documented By: MARIAN Ceftriaxone Sodium/Dextrose (Rocephin/D5w 1gm Iv Premix) 50 mls @ 100 mls/hr IV DAILY STEPAN Stop: 06/20/24 08:59 Last Admin: 06/16/24 08:45 Dose: 100 mls/hr Documented By: Infusion: 06/15/24 09:37 Dose: Infused Documented By: Admin: 06/15/24 09:07 Dose: 100 mls/hr Documented By: Infusion: 06/14/24 09:38 Dose: Infused Documented By: Admin: 06/14/24 09:08 Dose: 100 mls/hr Documented By: Infusion: 06/13/24 09:05 Dose: Infused Documented By: Admin: 06/13/24 08:35 Dose: 100 mls/hr Documented By: REYNA Melatonin (Melatonin 3 Mg Tablet) 3 mg PO [facility] Stop: 07/13/24 20:59 Last Admin: 06/15/24 21:02 Dose: 3 mg Documented By: Admin: 06/14/24 20:33 Dose: 3 mg Documented By: Admin: 06/13/24 20:15 Dose: 3 mg Documented By: MARIAN Metoprolol Succinate (Metoprolol Succinate Xl 25 Mg Tabcr) 50 mg PO [facility] Stop: 07/15/24 20:59 Last Admin: 06/15/24 21:00 Dose: 50 mg Documented By: NELY Ondansetron HCl (Ondansetron Inj 2 Mg/Ml Inj 2 Ml) 4 mg IV Q6H PRN; Protocol PRN Reason: NAUSEA OR VOMITING Stop: 07/12/24 14:14 Pantoprazole Sodium (Pantoprazole Inj 40 Mg Vial) 40 mg IVP QDAY [facility] Stop: 07/13/24 08:59 Last Admin: 06/16/24 09:00 Dose: Not Given Documented By: CLAUDIO Non-Admin Reason: Patient Refused Admin: 06/15/24 09:31 Dose: 40 mg Documented By: Admin: 06/14/24 09:04 Dose: 40 mg Documented By: Admin: 06/13/24 08:37 Dose: 40 mg Documented By: REYNA Sacubitril/Valsartan (Sacubitril 24 Mg/Valsartan 26 Mg Tablet) 1 tab PO BID [facility] Stop: 07/15/24 20:59 Last Admin: 06/16/24 08:45 Dose: Not Given Documented By: FRANKLYN Non-Admin Reason: Held per MD Admin: 06/15/24 21:02 Dose: 1 tab Documented By: NELY Spironolactone (Spironolactone 25 Mg Tablet) 25 mg PO QDAY [facility] Stop: 07/16/24 08:59 Last Admin: 06/16/24 08:41 Dose: 25 mg Documented By: FRANKLYN Discontinued Medications Atropine Sulfate (Atropine Sulf Inj 1 Mg/Ml Vial) Confirm Administered Dose 1 mg .ROUTE .STK-MED ONE Stop: 06/15/24 11:17 Last Admin: 06/15/24 13:20 Dose: Not Given Documented By: Non-Admin Reason: Duplicate Medication on eMAR Celecoxib (Celecoxib 100 Mg Capsule) 100 mg PO X1 ONE Stop: 06/12/24 17:57 Last Admin: 06/12/24 19:55 Dose: 100 mg Documented By: NELY Diphenhydramine HCl (Diphenhydramine Inj 50 Mg/Ml Vial) 50 mg IVP X1 ONE Stop: 06/14/24 23:08 Enalaprilat (Enalaprilat Inj 1.25 Mg/Ml Vial) 0.625 mg IVP X1 ONE Stop: 06/12/24 11:02 Last Admin: 06/12/24 11:21 Dose: 0.625 mg Documented By: FARNAZ Epinephrine HCl (Epinephrine Inj 0.1 Mg/Ml Syringe 10ml) Confirm Administered Dose 1 mg .ROUTE .STK-MED ONE Stop: 06/15/24 11:18 Last Admin: 06/15/24 13:22 Dose: Not Given Documented By: Non-Admin Reason: Duplicate Medication on eMAR Famotidine (Famotidine Inj 10 Mg/Ml Vial 2 Ml) 20 mg IVP X1 ONE Stop: 06/14/24 23:08 Fentanyl Citrate (Fentanyl Cit Inj 50 Mcg/Ml Amp 2ml) Confirm Administered Dose 100 mcg .ROUTE .STK-MED ONE Stop: 06/15/24 11:17 Last Admin: 06/15/24 13:21 Dose: Not Given Documented By: Non-Admin Reason: Duplicate Medication on eMAR Flumazenil (Flumazenil Inj 0.1 Mg/Ml Vial 10 Ml) Confirm Administered Dose 1 mg .ROUTE .STK-MED ONE Stop: 06/15/24 11:17 Last Admin: 06/15/24 13:21 Dose: Not Given Documented By: Non-Admin Reason: Duplicate Medication on eMAR Furosemide (Furosemide Inj 10 Mg/Ml 4ml Vial) 40 mg IVP X1 ONE Stop: 06/12/24 11:38 Last Admin: 06/12/24 11:47 Dose: 40 mg Documented By: EF Furosemide (Furosemide Inj 10 Mg/Ml 4ml Vial) 40 mg IVP BID [facility] Stop: 07/12/24 20:59 Last Admin: 06/14/24 09:05 Dose: 40 mg Documented By: Admin: 06/13/24 20:16 Dose: 40 mg Documented By: Admin: 06/13/24 08:36 Dose: 40 mg Documented By: Admin: 06/12/24 20:49 Dose: 40 mg Documented By: NELY Heparin Sodium (Porcine) (Heparin Sod Inj 5000 Unit/Ml Vial) 5,000 unit SC Q12H [facility] Stop: 06/26/24 14:14 Last Admin: 06/12/24 14:49 Dose: 5,000 unit Documented By: FARNAZ Co-signed By: DEEP Heparin Sodium (Porcine) (Heparin Sod Inj 5000 Unit/Ml Vial) 5,000 unit SC Q12HR STEPAN Stop: 06/26/24 14:14 Last Admin: 06/14/24 20:34 Dose: Not Given Documented By: NELY Non-Admin Reason: Patient Refused Admin: 06/14/24 16:22 Dose: Not Given Documented By: LUISA Non-Admin Reason: Held for Procedure Admin: 06/13/24 20:16 Dose: 5,000 unit Documented By: MARIAN Co-signed By: YUNG Admin: 06/13/24 08:35 Dose: 5,000 unit Documented By: REYNA Co-signed By: TASHA Admin: 06/12/24 20:51 Dose: 5,000 unit Documented By: NELY Co-signed By: MARIAN Heparin Sodium (Porcine) (Heparin Sod Inj 1000 Unit/Ml Vial 10 Ml) Confirm Administered Dose 20,000 unit .ROUTE .STK-MED ONE Stop: 06/15/24 11:18 Last Admin: 06/15/24 13:22 Dose: Not Given Documented By: Non-Admin Reason: Duplicate Medication on eMAR Hydralazine HCl (Hydralazine Inj 20 Mg/Ml Vial) 10 mg IV X1 ONE Stop: 06/12/24 10:57 Last Admin: 06/12/24 11:21 Dose: 10 mg Documented By: FARNAZ Hydralazine HCl (Hydralazine Inj 20 Mg/Ml Vial) 10 mg IV X1 ONE Stop: 06/15/24 13:56 Last Admin: 06/15/24 14:05 Dose: 10 mg Documented By: Hydralazine HCl (Hydralazine Inj 20 Mg/Ml Vial) Confirm Administered Dose 20 mg .ROUTE .STK-MED ONE Stop: 06/15/24 13:53 Last Admin: 06/15/24 14:20 Dose: Not Given Documented By: Non-Admin Reason: Duplicate Medication on eMAR Hydrocortisone Sodium Succinate (Hydrocortisone Sod Succ Inj 100 Mg Vial) 100 mg IV X1 ONE Stop: 06/14/24 23:08 Ceftriaxone Sodium/Dextrose (Rocephin/D5w 1gm Iv Premix) 50 mls @ 100 mls/hr IV X1 ONE Stop: 06/12/24 12:13 Last Infusion: 06/12/24 12:31 Dose: Infused Documented By: Admin: 06/12/24 12:01 Dose: 100 mls/hr Documented By: EF Azithromycin 500 mg/ Sodium (Chloride) 250 mls @ 250 mls/hr IV X1 ONE Stop: 06/12/24 12:44 Last Infusion: 06/12/24 14:00 Dose: Infused Documented By: Admin: 06/12/24 12:46 Dose: 250 mls/hr Documented By: FARNAZ Doxycycline Hyclate 100 mg/ (Sodium Chloride) 100 mls @ 100 mls/hr IV BID STEPAN Stop: 06/19/24 14:29 Last Admin: 06/14/24 09:08 Dose: 100 mls/hr Documented By: Infusion: 06/13/24 21:15 Dose: Infused Documented By: Admin: 06/13/24 20:15 Dose: 100 mls/hr Documented By: Infusion: 06/13/24 11:11 Dose: Infused Documented By: Admin: 06/13/24 10:11 Dose: 100 mls/hr Documented By: Infusion: 06/12/24 21:46 Dose: Infused Documented By: Admin: 06/12/24 20:46 Dose: 100 mls/hr Documented By: Infusion: 06/12/24 16:00 Dose: Infused Documented By: Admin: 06/12/24 14:49 Dose: 100 mls/hr Documented By: FARNAZ Magnesium Sulfate (Magnesium Sulfate Ivpb) 4 gm in 50 mls @ 12.5 mls/hr IV X1 ONE Stop: 06/13/24 11:49 Last Admin: 06/13/24 14:02 Dose: 12.5 mls/hr Documented By: REYNA Magnesium Sulfate (Magnesium Sulfate Ivpb) 4 gm in 50 mls @ 12.5 mls/hr IV X1 ONE Stop: 06/13/24 15:59 Last Admin: 06/13/24 17:01 Dose: 12.5 mls/hr Documented By: REYNA Sodium Chloride (Ns 0.45%) 500 mls @ 100 mls/hr IV .Q5H STEPAN Stop: 06/15/24 04:14 Nitroglycerin/Dextrose (Nitroglycerin In D5w Ivpb) Confirm Administered Dose 50 mg in 250 mls @ ud IV .STK-MED ONE Stop: 06/15/24 11:18 Last Admin: 06/15/24 13:22 Dose: Not Given Documented By: Non-Admin Reason: Duplicate Medication on eMAR Lidocaine HCl (Lidocaine Inj Pf 1% 30 Ml Vial) Confirm Administered Dose 30 ml .ROUTE .STK-MED ONE Stop: 06/15/24 11:17 Last Admin: 06/15/24 13:21 Dose: Not Given Documented By: Non-Admin Reason: Duplicate Medication on eMAR Melatonin (Melatonin 3 Mg Tablet) 3 mg PO [facility] Stop: 07/13/24 17:44 Last Admin: 06/13/24 18:38 Dose: Not Given Documented By: TASHA Non-Admin Reason: Wrong Time Meloxicam (Meloxicam 7.5 Mg Tablet) 7.5 mg PO DAILY PRN PRN Reason: INFLAMMATION Stop: 07/13/24 20:59 Metoprolol Succinate (Metoprolol Succinate Xl 25 Mg Tabcr) 100 mg PO QDAY [facility] Stop: 07/14/24 10:14 Last Admin: 06/15/24 09:09 Dose: 100 mg Documented By: Admin: 06/14/24 10:27 Dose: 100 mg Documented By: LUISA Metoprolol Succinate (Metoprolol Succinate Xl 25 Mg Tabcr) 50 mg PO [facility] Stop: 07/15/24 08:59 Metoprolol Succinate (Metoprolol Succinate Xl 25 Mg Tabcr) 50 mg PO QDAY [facility] Stop: 07/16/24 08:59 Metoprolol Tartrate (Metoprolol Tartrate 25 Mg Tablet) 25 mg PO X1 ONE Stop: 06/13/24 13:32 Last Admin: 06/13/24 14:17 Dose: Not Given Documented By: TASHA Non-Admin Reason: Duplicate Medication on eMAR Metoprolol Tartrate (Metoprolol Tartrate 25 Mg Tablet) 25 mg PO X1 ONE Stop: 06/13/24 13:35 Last Admin: 06/13/24 14:01 Dose: 25 mg Documented By: REYNA Midazolam HCl (Midazolam Inj 1 Mg/Ml Vial 2 Ml) Confirm Administered Dose 2 mg .ROUTE .STK-MED ONE Stop: 06/15/24 11:16 Last Admin: 06/15/24 13:20 Dose: Not Given Documented By: Non-Admin Reason: Duplicate Medication on eMAR Midodrine (Midodrine 5 Mg Tablet) 5 mg PO BID PRN PRN Reason: SBP <90 Stop: 07/12/24 14:29 Naloxone HCl (Naloxone Inj 0.4 Mg/Ml Vial) Confirm Administered Dose 0.4 mg .ROUTE .STK-MED ONE Stop: 06/15/24 11:17 Last Admin: 06/15/24 13:21 Dose: Not Given Documented By: Non-Admin Reason: Duplicate Medication on eMAR Nitroglycerin (Nitroglycerin 0.4 Mg Subl Btl #25) 0.4 mg SL X1 ONE Stop: 06/12/24 10:57 Last Admin: 06/12/24 11:17 Dose: 0.4 mg Documented By: FARNAZ Nitroglycerin (Nitroglycerin Oint 2% 1 Inch Packet) 2 inch TOP X1 ONE Stop: 06/12/24 11:16 Last Admin: 06/12/24 11:22 Dose: 2 inch Documented By: FARNAZ Nitroglycerin (Nitroglycerin 0.4 Mg Subl Btl #25) 0.4 mg SL X1 ONE Stop: 06/12/24 11:28 Last Admin: 06/12/24 11:27 Dose: 0.4 mg Documented By: FARNAZ Phenylephrine HCl (Phenylephrine Inj In Ns 100 Mcg/Ml 10 Ml Syringe) Confirm Administered Dose 1,000 mcg .ROUTE .STK-MED ONE Stop: 06/15/24 11:17 Last Admin: 06/15/24 13:21 Dose: Not Given Documented By: Non-Admin Reason: Duplicate Medication on eMAR Potassium Chloride (Potassium Chloride 20 Meq Tabcr) 40 meq PO X1 ONE Stop: 06/13/24 07:51 Last Admin: 06/13/24 09:17 Dose: 40 meq Documented By: REYNA Potassium Chloride (Potassium Chloride 20 Meq Tabcr) 40 meq PO X1 ONE Stop: 06/14/24 09:40 Last Admin: 06/14/24 09:45 Dose: 40 meq Documented By: LUISA Spironolactone (Spironolactone 25 Mg Tablet) 25 mg PO X1 ONE Stop: 06/15/24 14:59 Last Admin: 06/15/24 15:54 Dose: 25 mg Documented By: REYNA Verapamil HCl (Verapamil Inj 2.5 Mg/Ml Vial 2 Ml) Confirm Administered Dose 5 mg .ROUTE .STK-MED ONE Stop: 06/15/24 11:17 Last Admin: 06/15/24 13:21 Dose: Not Given Documented By: Non-Admin Reason: Duplicate Medication on eMAR Enalapril, furosemide, hydralazine, ceftriaxone, azithromycin, nitroglycerin paste and sublingual nitroglycerin Consultations Consultation(s) initiated? (list below): No Diagnosis Differential Diagnosis ED Complaint MDM: Pneumonia Most likely diagnosis given after review of the tests above:: New onset CHF exacerbation Admission Indicated Admission indicated?: indicated Explain why admission is indicated or not indicated:: Shortness of breath, requiring BiPAP. Large pleural effusion noted on imaging. Patient requires diuresis with BiPAP for CHF exacerbation and likely pulmonary hypertension, necessitating admission. Admission Request Was there a request for admission?: Yes Admission Attestation Admission request attestation: Discussed case with [] from Hospitalist service regarding admission. Discussed patients ED course, exam findings, labs, and radiology results. The Hospitalist [agrees,declines] to accept the patient for admission. Disposition Plan Disposition Plan: Admit Medical Decision Making MDM Narrative MDM Narrative: A 64-year-old female with past medical history of hypertension, stroke 5 years ago,COVID pneumonia, and osteoporosis presented in the ED brought in by EMS on 06/12/2024 with chief complaint of shortness of breath and chest pain. Patient states that shortness of breath started 2 days ago. She felt pressure across her chest started 2 days ago. CBC: WBC 20.7,ABG: pH 7.45, pCO2 34, pO2 135, bicarb 23, O2 sat 98%. Lactic acid 2.4. BNP 1048. Chest x-ray: Mild to moderate CHF Mild enlargement cardiac contour with prominent vascular congestion including central vascular engorgement and perihilar edema. Large right pleural effusion small left pleural effusion. EKG: Sinus tachycardia, heart rate 120. Patient was on 6 L nasal cannula requiring to be upgraded to BiPAP. Lasix was given for CHF exacerbation. Patient was admitted for management of CHF exacerbation. Differential Diagnosis Differential Diagnosis: Pneumonia Medical Records Medical records reviewed: Yes I reviewed the patient's medical records. Lab Data Lab results reviewed: Yes I reviewed the patient's lab results. 06/15/24 05:32 06/16/24 04:30 Labs: Lab Results 06/12/24 06/12/24 06/12/24 Range/Units 10:12 11:25 11:53 WBC 20.7 H (3.6-11.0) Thou/mm3 RBC 4.28 (4.00-5.20) Miln/mm3 Hgb 12.2 (12.0-16.0) g/dL Hct 38.1 (36.0-46.0) % MCV 89 (80-100) fL MCH 28.5 (25.0-35.0) pg MCHC 32.0 (31.0-37.0) g/dl RDW Std Deviation 50.2 H (36.4-46.3) fL Plt Count 179 (140-440) Thou/mm3 Neut % (Auto) 82 H (37-80) % Lymph % (Auto) 8 L (10-50) % Bremer % (Auto) 7 (0-12) % Eos % (Auto) 2 (0-10) % Baso % (Auto) 1 (0-2.5) % Neut # (Auto) 16.9 H (1.8-7.7) Thou/mm3 Lymph # (Auto) 1.7 (1.0-4.8) Thou/mm3 Bremer # (Auto) 1.4 H (0.0-0.8) Thou/mm3 Eos # (Auto) 0.3 (0.0-0.5) Thou/mm3 Baso # (Auto) 0.2 (0.0-0.2) Thou/mm3 Immature Gran # (Auto) 0.20 H (0.00-0.00) Thou/mm3 Absolute Nucleated RBC 0.00 (0.00-0.00) Thou/mm3 Immature Gran % 1 H (0-0) % Nucleated RBC % 0 (0) /100 WBC PT 12.2 (9.0-12.2) Seconds INR 1.1 (0.9-1.3) APTT 28.7 (22.0-36.0) Seconds Puncture Site Left Radial ABG pH 7.45 (7.35-7.45) ABG pCO2 34 (32.0-48.0) mmHg ABG pO2 135 H (83-108) mmHg ABG HCO3 23 (20-26) mEq/L ABG O2 Saturation 98 (91-98) % ABG Base Excess 0 (-3-3) FiO2 50 % Sodium 139 (136-145) mMol/L Potassium 4.3 (3.4-5.1) mMol/L Chloride 104 (98-107) mMol/L Carbon Dioxide 25.7 (20.0-31.0) mMol/L Anion Gap 9 (7-16) BUN 14 (9-23) mg/dL Creatinine 1.0 (0.6-1.3) mg/dL Estim Creat Clear Calc 48.1 L (>60) mL/min eGFR > 60 (60 - ) See Note BUN/Creatinine Ratio 14 (12-20) Ratio Glucose 137 H (74-106) mg/dL Calculated Osmolality 280 (275-295) Lactic Acid 2.4 H (0.4-2.0) mMol/L Calcium 9.8 (8.3-10.6) mg/dL Corrected Calcium 9.8 (8.5-10.1) mg/dL Total Bilirubin 0.6 (0.3-1.2) mg/dL AST 18 (0-34) U/L ALT 22 (10-49) U/L Alkaline Phosphatase 93 (46-116) U/L Troponin I 0.044 (0.0-0.045) ng/mL B-Natriuretic Peptide 1048 H* (0-100) pg/mL Total Protein 7.1 (5.7-8.2) gm/dL Albumin 4.6 (3.4-4.8) gm/dL Globulin 2.5 (2.3-3.5) gm/dL Albumin/Globulin Ratio 1.8 (1.2-2.2) Procalcitonin 0.08 (0.0-0.49) ng/ml Ur Collection Type Clean Catch Urine Color Lt-Yellow (Lt Yel-Yel) Urine Clarity Clear (Clear/Hazy) Urine pH 6.0 (5.0-7.0) Ur Specific [place] 1.015 (1.001-1.035) Urine Protein 1+ A (Neg - Trace) Urine Glucose (UA) Negative (Negative) Urine Ketones Negative (Negative) Urine Blood Negative (Negative) Urine Nitrite Positive (Negative) Urine Bilirubin Negative (Negative) Urine Urobilinogen (Auto) Negative (0.0-1.0) mg/dL Ur Leukocyte Esterase Positive (Negative) Urine RBC 2 (0-3) /hpf Urine WBC 14 H (0-5) /hpf Ur Squamous Epith Cells < 1 (0-5) /hpf Urine Bacteria 2+ A (None) 06/12/24 Range/Units 13:49 WBC (3.6-11.0) Thou/mm3 RBC (4.00-5.20) Miln/mm3 Hgb (12.0-16.0) g/dL Hct (36.0-46.0) % MCV (80-100) fL MCH (25.0-35.0) pg MCHC (31.0-37.0) g/dl RDW Std Deviation (36.4-46.3) fL Plt Count (140-440) Thou/mm3 Neut % (Auto) (37-80) % Lymph % (Auto) (10-50) % Bremer % (Auto) (0-12) % Eos % (Auto) (0-10) % Baso % (Auto) (0-2.5) % Neut # (Auto) (1.8-7.7) Thou/mm3 Lymph # (Auto) (1.0-4.8) Thou/mm3 Bremer # (Auto) (0.0-0.8) Thou/mm3 Eos # (Auto) (0.0-0.5) Thou/mm3 Baso # (Auto) (0.0-0.2) Thou/mm3 Immature Gran # (Auto) (0.00-0.00) Thou/mm3 Absolute Nucleated RBC (0.00-0.00) Thou/mm3 Immature Gran % (0-0) % Nucleated RBC % (0) /100 WBC PT (9.0-12.2) Seconds INR (0.9-1.3) APTT (22.0-36.0) Seconds Puncture Site ABG pH (7.35-7.45) ABG pCO2 (32.0-48.0) mmHg ABG pO2 (83-108) mmHg ABG HCO3 (20-26) mEq/L ABG O2 Saturation (91-98) % ABG Base Excess (-3-3) FiO2 % Sodium (136-145) mMol/L Potassium (3.4-5.1) mMol/L Chloride (98-107) mMol/L Carbon Dioxide (20.0-31.0) mMol/L Anion Gap (7-16) BUN (9-23) mg/dL Creatinine (0.6-1.3) mg/dL Estim Creat Clear Calc (>60) mL/min eGFR (60 - ) See Note BUN/Creatinine Ratio (12-20) Ratio Glucose (74-106) mg/dL Calculated Osmolality (275-295) Lactic Acid 0.9 (0.4-2.0) mMol/L Calcium (8.3-10.6) mg/dL Corrected Calcium (8.5-10.1) mg/dL Total Bilirubin (0.3-1.2) mg/dL AST (0-34) U/L ALT (10-49) U/L Alkaline Phosphatase (46-116) U/L Troponin I (0.0-0.045) ng/mL B-Natriuretic Peptide (0-100) pg/mL Total Protein (5.7-8.2) gm/dL Albumin (3.4-4.8) gm/dL Globulin (2.3-3.5) gm/dL Albumin/Globulin Ratio (1.2-2.2) Procalcitonin (0.0-0.49) ng/ml Ur Collection Type Urine Color (Lt Yel-Yel) Urine Clarity (Clear/Hazy) Urine pH (5.0-7.0) Ur Specific [place] (1.001-1.035) Urine Protein (Neg - Trace) Urine Glucose (UA) (Negative) Urine Ketones (Negative) Urine Blood (Negative) Urine Nitrite (Negative) Urine Bilirubin (Negative) Urine Urobilinogen (Auto) (0.0-1.0) mg/dL Ur Leukocyte Esterase (Negative) Urine RBC (0-3) /hpf Urine WBC (0-5) /hpf Ur Squamous Epith Cells (0-5) /hpf Urine Bacteria (None) Radiology Data Radiology results reviewed: Yes I reviewed the patient's radiology results. Discharge Plan Plan Patient Disposition: Admit Acute Care w/in Hospital Problem List Clinical Impression: CHF (congestive heart failure), Pleural effusion MD Attestation MD Attestation The patient was seen by the PGY-2. I, the supervising physician, also encountered and examined the patient while remaining present during the entire ER visit. I was available for consultation as needed. Working with a PGY 2, management, treatment plan, and documentation were formulated. I agree with the plan and documentation.
[2024-06-12] MEDS: cefTRIAXone/D5w 1gm IV premix 50 ML IV (12:01)
[2024-06-12 12:41] LABS: Collection Type, Urine Clean Catch
[2024-06-12] MEDS: AZITHROMYCIN INJ 500 MG in SODIUM CHLORIDE 0.9% 250 ML 250 ML 250 MG IV (12:46)
[2024-06-12 12:52] LABS: Bacteria,Urine 2+; Bilirubin,Urine Negative (Negative); Blood,Urine Negative (Negative); Clarity,Urine Clear (Clear/Hazy); Color,Urine Lt-Yellow (Lt Yel-Yel); Glucose, Urine Negative (Negative); Ketones,Urine Negative (Negative); Leukocyte Esterase,Urine Positive (Negative); Nitrite,Urine Positive (Negative); Protein,Urine 1+ (Neg - Trace); RBC,Urine 2 /hpf (0-3); Specific Gravity,Urine 1.015 (1.001-1.035); Squamous Epithelial Cell,Urine < 1 /hpf (0-5); Urobilinogen,Urine Negative mg/dL (0.0-1.0); WBC,Urine 14 /hpf (0-5)
[2024-06-12 13:08] LABS: B-Type Natriuretic Peptide 1048 pg/mL (0-100)
[2024-06-12 13:38] LABS: Reflex Lactate? Y
[2024-06-12 13:53] LABS: Lactic Acid, 3 HR 0.9 mMol/L (0.4-2.0)
[2024-06-12] MEDS: HEPARIN SOD INJ 5000 UNIT/ML VIAL SC ×2 (14:49→20:51)
[2024-06-12] MEDS: DOXYCYCLINE INJ 100 MG in SODIUM CHLORIDE 0.9% (P) 100 ML IV ×2 (14:49→20:46)
--- NOTE | 2024-06-12 15:57 | PD.RESHP ---
Documentation for date of: 06/12/24 HPI History of Present Illness History of present illness: Chief complaint: Shortness of breath HPI: Ms Haywood is a 64 year old female with past medical history primary hypertension, CVA 5 years ago, COVID pneumonia and osteoporosis, who presented in the ED brought in by EMS on 06/12/2024 with chief complaint of shortness of breath and chest pain. Patient states that shortness of breath started 2 days ago, patient has developed significant chest pressure since then. She required 2 DuoNeb treatments in the ambulance, which were given. Patient also required titrating from nasal cannula to BiPAP in the ED. She was recently taken off amlodipine and another antihypertensive by primary care provider, which likely contributed to recent presentation. Denies palpitations, diaphoresis, nausea/vomiting, or dizziness. Patient endorses that she had 1 sick contact over the past week, her neighbor. The neighbor had a cough and sore throat. She denies any fevers, chills or associated systemic symptoms. In the ED, vitals showed tachycardia HR 110?120 bpm, tachypnea RR 26, and patient was on BiPAP saturating 96% at FiO2 45%. Initial blood work was remarkable for leukocytosis WBC 20.7, elevated BNP 1048. Urinalysis was remarkable for nitrites positive, esterase positive, WBC 14 and 2+ bacteria. On imaging, chest x-ray showed mild to moderate CHF. Mild enlargement cardiac contour with prominent vascular congestion including central vascular engorgement and perihilar edema. Large right pleural effusion small left pleural effusion Patient was admitted for the work-up and management of new onset of acute decompensated heart failure, sepsis in the setting of possible underlying community-acquired pneumonia, and UTI. Medication list: - metoprolol - nortriptyline - Flexeril - gabapentin - recently taken off amlodipine Past surgical history: - - appendectomy - tubal ligation Allergies: Penicillin - hives Social history: Tobacco?Use:?Denies ETOH?Use:?Socially Drug?Note:?Denies Social?History?Note:?Lives?at home, sister is primary manager urgent care Family history: Hypertension, cancers on both sides of the family Review of Systems Review of Systems Narrative Review of Systems: GENERAL: Denies fevers/chills or diaphoresis. HEENT: Denies headache or visual/hearing changes. Denies nasal discharge. NEURO: Denies unusual weakness or difficulty speaking. CARDIO: Denies chest pain or palpitations. PULM: SOB, nonproductive coughing, intermittent wheezing. GI: Denies abdominal pain, N/V/C/D. Reports having BMs URO: Denies burning/itching/pain/urinary changes. 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 MSK/EXT/SKIN: Denies joint/skeletal/muscle pain, issues/changes in upper or lower extremities, itchiness, or superficial pain. PSYCH: Cooperative, pleasant mood & affect. The rest of the review of systems is otherwise negative. Exam Vital Signs Temp Pulse Resp BP Pulse Ox O2 Del Method O2 Flow Rate 98.7 F 119 H 26 H 107/79 96 BiPAP 6 06/12/24 15:05 06/12/24 15:05 06/12/24 15:05 06/12/24 15:05 06/12/24 15:05 06/12/24 15:05 06/12/24 10:23 FiO2 45 06/12/24 15:05 Narrative Exam Constitutional Alert, oriented x3. Obese HEENT Vision grossly intact. Patent nares. Trachea midline. Respiratory Chest normal on inspection and clear to auscultation bilaterally. On BiPAP Cardiovascular S1 and S2 audible, RRR. No murmurs or carotid bruit. No gross JVD. Abdominal Soft and non tender to palpation in all quadrants. BS + Genitourinary No bladder tenderness, no flank pain. Normal to palpation. Musculoskeletal Extremities tone within normal limits. 1+ LE edema. Neurological CN II - XII grossly intact. Extremity motor and sensation grossly intact. Skin Warm, dry and intact. No apparent lesions. Psychiatric Patient has a good affect, is cooperative. Results: Labs 06/13/24 05:20 06/13/24 05:20 Labs: Short CBC 06/12/24 Range/Units 10:12 WBC 20.7 H (3.6-11.0) Thou/mm3 Hgb 12.2 (12.0-16.0) g/dL Hct 38.1 (36.0-46.0) % Plt Count 179 (140-440) Thou/mm3 BMP 06/12/24 10:12 Sodium 139 Potassium 4.3 Chloride 104 Carbon Dioxide 25.7 BUN 14 Creatinine 1.0 Glucose 137 H Calcium 9.8 Cardiac Enzymes 06/12/24 Range/Units 10:12 Troponin I 0.044 (0.0-0.045) ng/mL Liver Function 06/12/24 Range/Units 10:12 Total Bilirubin 0.6 (0.3-1.2) mg/dL AST 18 (0-34) U/L ALT 22 (10-49) U/L Alkaline Phosphatase 93 (46-116) U/L Albumin 4.6 (3.4-4.8) gm/dL Urine 06/12/24 Range/Units 11:53 Urine Color Lt-Yellow (Lt Yel-Yel) Urine Clarity Clear (Clear/Hazy) Urine pH 6.0 (5.0-7.0) Ur Specific [place] 1.015 (1.001-1.035) Urine Protein 1+ A (Neg - Trace) Urine Glucose (UA) Negative (Negative) ABG Interpretation ABG results: 06/12/24 11:25 ABG pH 7.45 ABG pCO2 34 ABG pO2 135 H ABG HCO3 23 ABG O2 Saturation 98 ABG Base Excess 0 Quality Measures Quality Measures none Advance care planning discussed with:: patient Medications Home Medications and Allergies Home Medications ?Medication ?Instructions ?Recorded ?Confirmed ?Type acetaminophen 500 mg capsule 500 mg PO Q6H PRN Breakthrough 05/24/24 06/12/24 History Pain, Mild cholecalciferol (vitamin D3) 50 50 mcg PO QWEEK 05/24/24 06/12/24 History mcg (2,000 unit) capsule cyclobenzaprine 10 mg tablet 10 mg PO BID 05/24/24 06/12/24 History metoprolol succinate 100 mg 100 mg PO HS 05/24/24 06/12/24 History tablet,extended release 24 hr nortriptyline 50 mg capsule 50 mg PO HS 05/24/24 06/12/24 History (Pamelor) gabapentin 800 mg tablet 800 mg PO HS 06/12/24 06/12/24 History meloxicam 7.5 mg tablet 7.5 mg PO HS 06/12/24 06/12/24 History sodium zirconium cyclosilicate 10 10 g PO DAILY 06/12/24 06/12/24 History gram oral powder packet (Lokelma) Allergies Allergy/AdvReac Type Severity Reaction Status Date / Time Penicillins Allergy Severe Hives Verified 06/12/24 10:46 Visit Medications Acetaminophen (Acetaminophen 325 Mg Tablet) 650 mg PO Q6H PRN PRN Reason: Fever >100.3 Stop: 07/12/24 14:09 Heparin Sodium (Porcine) (Heparin Sod Inj 5000 Unit/Ml Vial) 5,000 unit SC Q12H [facility] Stop: 06/26/24 14:14 Last Admin: 06/12/24 14:49 Dose: 5,000 unit Doxycycline Hyclate 100 mg/ (Sodium Chloride) 100 mls @ 100 mls/hr IV BID [facility] Stop: 06/19/24 14:29 Last Admin: 06/12/24 14:49 Dose: 100 mls/hr Ceftriaxone Sodium/Dextrose (Rocephin/D5w 1gm Iv Premix) 50 mls @ 100 mls/hr IV DAILY [facility] Stop: 06/20/24 08:59 Midodrine (Midodrine 5 Mg Tablet) 5 mg PO BID PRN PRN Reason: SBP <90 Stop: 07/12/24 14:29 Ondansetron HCl (Ondansetron Inj 2 Mg/Ml Inj 2 Ml) 4 mg IV Q6H PRN; Protocol PRN Reason: NAUSEA OR VOMITING Stop: 07/12/24 14:14 Pantoprazole Sodium (Pantoprazole Inj 40 Mg Vial) 40 mg IVP QDAY [facility] Stop: 07/13/24 08:59 Discontinued Medications Enalaprilat (Enalaprilat Inj 1.25 Mg/Ml Vial) 0.625 mg IVP X1 ONE Stop: 06/12/24 11:02 Last Admin: 06/12/24 11:21 Dose: 0.625 mg Furosemide (Furosemide Inj 10 Mg/Ml 4ml Vial) 40 mg IVP X1 ONE Stop: 06/12/24 11:38 Last Admin: 06/12/24 11:47 Dose: 40 mg Hydralazine HCl (Hydralazine Inj 20 Mg/Ml Vial) 10 mg IV X1 ONE Stop: 06/12/24 10:57 Last Admin: 06/12/24 11:21 Dose: 10 mg Ceftriaxone Sodium/Dextrose (Rocephin/D5w 1gm Iv Premix) 50 mls @ 100 mls/hr IV X1 ONE Stop: 06/12/24 12:13 Last Infusion: 06/12/24 12:31 Dose: Infused Azithromycin 500 mg/ Sodium (Chloride) 250 mls @ 250 mls/hr IV X1 ONE Stop: 06/12/24 12:44 Last Infusion: 06/12/24 14:00 Dose: Infused Nitroglycerin (Nitroglycerin 0.4 Mg Subl Btl #25) 0.4 mg SL X1 ONE Stop: 06/12/24 10:57 Last Admin: 06/12/24 11:17 Dose: 0.4 mg Nitroglycerin (Nitroglycerin Oint 2% 1 Inch Packet) 2 inch TOP X1 ONE Stop: 06/12/24 11:16 Last Admin: 06/12/24 11:22 Dose: 2 inch Nitroglycerin (Nitroglycerin 0.4 Mg Subl Btl #25) 0.4 mg SL X1 ONE Stop: 06/12/24 11:28 Last Admin: 06/12/24 11:27 Dose: 0.4 mg Assessment & Plan Plan Ms Haywood is a 64 year old female with past medical history primary hypertension, CVA 5 years ago, COVID pneumonia and osteoporosis, who presented in the ED brought in by EMS on 06/12/2024 with chief complaint of shortness of breath and chest pain. Patient states that shortness of breath started 2 days ago, patient has developed significant chest pressure since then. She required 2 DuoNeb treatments in the ambulance, which were given. Patient also required titrating from nasal cannula to BiPAP in the ED. She was recently taken off amlodipine and another antihypertensive by primary care provider, which likely contributed to recent presentation. Denies palpitations, diaphoresis, nausea/vomiting, or dizziness. Patient endorses that she had 1 sick contact over the past week, her neighbor. The neighbor had a cough and sore throat. She denies any fevers, chills or associated systemic symptoms. In the ED, vitals showed tachycardia HR 110?120 bpm, tachypnea RR 26, and patient was on BiPAP saturating 96% at FiO2 45%. Initial blood work was remarkable for leukocytosis WBC 20.7, elevated BNP 1048. Urinalysis was remarkable for nitrites positive, esterase positive, WBC 14 and 2+ bacteria. On imaging, chest x-ray showed mild to moderate CHF. Mild enlargement cardiac contour with prominent vascular congestion including central vascular engorgement and perihilar edema. Large right pleural effusion small left pleural effusion. Patient was admitted for the work-up and management of new onset of acute decompensated heart failure, with possible underlying community-acquired pneumonia, and UTI. 1. Acute hypoxic respiratory failure Secondary to 2. Acute decompensated heart failure exacerbation 3. Bilateral pleural effusion - Patient states that shortness of breath started 2 days ago, patient has developed significant chest pressure since then. - She received 2 DuoNeb treatments in the ambulance - Required titrating from nasal cannula to BiPAP -> saturating 96% at FiO2 45% on BIPAP in the ED - Chest x-ray: mild to moderate CHF. Mild enlargement cardiac contour with prominent vascular congestion including central vascular engorgement and perihilar edema. Large right pleural effusion small left pleural effusion. - BNP 1048 on admission - No known history of CHF - NYHA : Stage C , Class III at baseline Plan: - ECHO ordered, follow up results - Ordered IR thoracentesis for 06/13/2024 - Cardiology consulted, pending recommendations - Continue IV Lasix 40mg BID - Strict input/output charting - Daily weight recording - Diet: 2g sodium restriction - Fluid restriction to 1.5L 4. Severe Sepsis Secondary to 5. Community-acquired pneumonia 6. UTI - SIRS : tachycardia HR 110?120 bpm, tachypnea RR 26, leukocytosis WBC 20.7 - LA: 2.4 --> 0.9 - Urinalysis : nitrites positive, esterase positive, WBC 14 and 2+ bacteria. - Received IV Azithro 500mg x1 + Rocephin 1g x1 in the ED Plan: - On IV doxycycline 100 mg IV twice daily (06/12- - On IV Rocephin 1 g daily (06/12- - No need to trend lactic acid down trended to within normal limits - Hold off on maintenance IVF given possible CHF exacerbation - Follow up blood culture and urine culture results 7. Primary hypertension 8. Hx of CVA 5 years ago 9. Osteoporosis Chronic condition Blood pressure well-controlled likely due to diuretics Patient complained of headache and intermittent bilateral knee pain, even addressed Plan: Celebrex 100 mg x 1 ordered Will resume home blood pressure medication as needed On midodrine 5 mg BID PRN for SBP <90 while on diuretic therapy Health maintenance: Disposition: Admitted to telemetry for possible new onset CHF exacerbation, cardiology consulted pending recommendations Diet: Low-sodium, fluid restriction 1500 cc Lines: pIVs GI Prophylaxis: Pantoprazole IV 40 mg daily Thrombo Prophylaxis: Heparin 5000 every 12 hours Code status: DNR/DNI Plan of care discussed with attending Dr Peguero , Robert Crane MD, PGY2 Attending Provider Attestation/Addendum Lissett De Paz DO, attest that I was physically present for the de [place] rosa portions of the service and evaluated the patient with the resident and I reviewed and discussed the case with the resident and agree with the resident's findings and plans of care as documented above Patient is a 64-year-old female with past medical history of hypertension, CVA, osteoporosis who was brought to the ED with worsening shortness of breath that began this morning. Patient also endorsed some chest discomfort at the same time. She states that she had progressively worsening shortness of breath in the past 2 days with decreased activity due to worsening dyspnea exertion. Patient denies using any oxygen at home. She denies any personal cardiac history. Chest x-ray was done in the ED showing mild to moderate CHF. Bilateral lower extremity 1+ pitting edema was noted. Patient was found to have leukocytosis 20.7 and a BNP of 1048. Troponin is detectable but negative. Will consult cardio for new onset CHF. She is also noted to have 2+ bacteria in her UA. Will cover both pneumonia and possible UTI doxycycline and Rocephin. patient is currently on BiPAP and received 1 dose of Lasix. Will continue with IV diuresis. Will admit to telemetry for further workup medical management of acute onset CHF. Pending echocardiogram. Will consult cardiology as well. Will monitor I's and O's, daily weights, restrict fluid and sodium intake. Titrate O2 as tolerated.
--- NOTE | 2024-06-12 19:01 | PC.CC ---
Pt Tabatha Haywood is a 64 yr old female admitted to hospitalist services for CHF exacerbation. SLIP INJECTOR AND APPLICATOR CC met with pt at bedside complete initial assessment. At time of encounter pt is on BiPAP. Pt able to respond to assessment questions appropriately. Pt expressed understanding admission orders and is in agreement with treatment plan. Pt able to confirm all demographic information. Pt is from home [address] [place] [address]. Pt reports she lives at home alone. Pt identifies her sister Dianne Diop [phone] as surrogate DM. At baseline pt reports being ambulatory with a cane inside her home and 4-wheel rollator outside of her home. Pt reports being independent with ADLs. Pt is not diabetic and is not on dialysis. In ED pt is on BiPAP, but reports prior to admission, she did not require supplemental O2. Pt would likely benefit from O2 road test prior to D/c. Pt is followed by [facility] on [address]. Pt reports feeling safe in her home. Pt reports having access to food items and all working utilities. At time of D/c pt reports she would like to return home. Per pt she will make contact with her friend for transport. Pt is a DNR status. Pt requested information for Advance Directive, copy provided along with education on how to sign document.
[2024-06-12] MEDS: CELECOXIB 100 MG CAPSULE PO (19:55)
[2024-06-13] VITALS (15 sets, daily range): BP systolic 130–146; BP diastolic 78–99; PULSE 91–120; RESP 17–24; TEMP 36.4–36.8; O2SAT 95–98
[2024-06-13] MEDS: ACETAMINOPHEN 325 MG TABLET 650 MG PO ×3 (05:24→22:45)
[2024-06-13 06:15] LABS: Basophils # (Auto) 0.1 Thou/mm3 (0.0-0.2); Basophils % (Auto) 1 % (0-2.5); Eosinophils # (Auto) 0.5 Thou/mm3 (0.0-0.5); Eosinophils % (Auto) 3 % (0-10); Hematocrit 38.8 % (36.0-46.0); Hemoglobin 12.7 g/dL (12.0-16.0); Immature Granulocytes % (Auto) 0 % (0-0); Immature Granulocytes Auto 0.04 Thou/mm3 (0.00-0.00); Lymphocytes # (Auto) 1.9 Thou/mm3 (1.0-4.8); Lymphocytes % (Auto) 13 % (10-50); Mean Corpuscular HGB Conc 32.7 g/dl (31.0-37.0); Mean Corpuscular Hemoglobin 28.8 pg (25.0-35.0); Mean Corpuscular Volume 88 fL (80-100); Monocytes # (Auto) 1.4 Thou/mm3 (0.0-0.8); Monocytes % (Auto) 9 % (0-12); Neutrophils # (Auto) 10.5 Thou/mm3 (1.8-7.7); Neutrophils % (Auto) 73 % (37-80); Nucleated Red Blood Cell % 0 /100 WBC (0); Platelet Count 228 Thou/mm3 (140-440); RDW Standard Deviation 48.9 fL (36.4-46.3); Red Blood Count 4.41 Miln/mm3 (4.00-5.20); White Blood Count 14.4 Thou/mm3 (3.6-11.0)
[2024-06-13 06:51] LABS: Alanine Aminotransferase 17 U/L (10-49); Albumin, Serum 4.3 gm/dL (3.4-4.8); Albumin/Globulin Ratio 1.7 (1.2-2.2); Alkaline Phosphatase 90 U/L (46-116); Anion Gap 11 (7-16); Aspartate Amino Transferase < 10 U/L (0-34); BUN/Creatinine Ratio 17 Ratio (12-20); Bilirubin,Total 0.7 mg/dL (0.3-1.2); Blood Urea Nitrogen 15 mg/dL (9-23); Calcium 9.6 mg/dL (8.3-10.6); Calcium (Corrected) 9.6 mg/dL (8.5-10.1); Carbon Dioxide 25.4 mMol/L (20.0-31.0); Cardiac Risk Estimate 3.4 RATIO (3.7-5.6); Chloride 101 mMol/L (98-107); Cholesterol 140 mg/dL (132-200); Creatinine (Component) 0.9 mg/dL (0.6-1.3); Estimated Creatinine Clearance 54.3 mL/min (>60); Globulin 2.6 gm/dL (2.3-3.5); Glucose 111 mg/dL (74-106); HDL Cholesterol 41 mg/dL (40-60); LDL Cholesterol,Calculated 79 mg/dL (0-130); Magnesium 1.5 mg/dL (1.6-2.6); Osmolality,Calculated 275 (275-295); Potassium 3.4 mMol/L (3.4-5.1); Sodium 137 mMol/L (136-145); Thyroid Stimulating Hormone 1.72 uIU/mL (0.55-4.78); Total Protein 6.9 gm/dL (5.7-8.2); Triglycerides 102 mg/dL (30-150); eGFR > 60 See Note
--- NOTE | 2024-06-13 07:00 | XR_ITS ---
Examination: Ultrasound right hemithorax Ultrasound left hemithorax Exam date and time: June 13, 2024 1133 hours INDICATIONS: Shortness of breath this week, chest film June 12, 2024 bilateral pleural effusions TECHNIQUE AND FINDINGS: Multiple high resolution grayscale sonographic images right and left hemithoraces Mild right pleural fluid Mild left pleural fluid IMPRESSION: Insufficient pleural fluid for safe thoracentesis
--- NOTE | 2024-06-13 07:47 | ESPR_ITS ---
<Statement entered by Michael Salomon MD - 06/14/24 07:48> Patient was seen and examined by me personally. I agree with most of the assessment and plan as discussed with the legal internship physician, and my attending, Dr. Peguero. Patient satting well on 1L NC however continues to complain of SOB. Ordered US thora however insufficient fluid for safe thora. Case discussed with cardiology who is planning for cardiac cath on 06/14 to evaluate for ischemic cause of CHF, likely in afternoon, pending BCx. Patient will be made NPO after breakfast. Michael Salomon MD, PGY-3 Documentation for date of: 06/13/24 Subjective Subjective Interval history: No acute overnight events. Patient on 1 L oxygen, breathing comfortably although complains of orthopnea especially when laying flat. Tolerating oral intake without nausea or vomiting. Complaining of trouble sleeping for which we added MELATONIN and resumed home GABAPENTIN. Denies fever, chills, headaches, chest pain, sob, cough, GI or urinary symptoms. Exam Vital Signs Temp Pulse Resp BP Pulse Ox O2 Del Method O2 Flow Rate 98.0 F 103 H 17 138/89 H 96 BiPAP 3 06/13/24 07:34 06/13/24 07:34 06/13/24 07:34 06/13/24 07:34 06/13/24 07:34 06/13/24 07:34 06/13/24 04:00 FiO2 40 06/12/24 19:08 Narrative Exam Constitutional Alert, oriented x3. Obese HEENT Vision grossly intact. Patent nares. Trachea midline. Respiratory Chest normal on inspection and clear to auscultation bilaterally. On 1L NC Cardiovascular S1 and S2 audible, RRR. No murmurs or carotid bruit. No gross JVD. Abdominal Soft and non tender to palpation in all quadrants. BS + Genitourinary No bladder tenderness, no flank pain. Normal to palpation. Musculoskeletal Extremities tone within normal limits. resolved edema of lower extremities Neurological CN II - XII grossly intact. Extremity motor and sensation grossly intact. Skin Warm, dry and intact. No apparent lesions. Psychiatric Patient has a good affect, is cooperative. Objective Labs 06/14/24 05:00 06/14/24 05:00 Labs: Laboratory Results - last 24 hr 06/12/24 06/12/24 06/12/24 10:12 11:25 11:53 WBC 20.7 H RBC 4.28 Hgb 12.2 Hct 38.1 MCV 89 MCH 28.5 MCHC 32.0 RDW Std Deviation 50.2 H Plt Count 179 Neut % (Auto) 82 H Lymph % (Auto) 8 L Bee % (Auto) 7 Eos % (Auto) 2 Baso % (Auto) 1 Neut # (Auto) 16.9 H Lymph # (Auto) 1.7 Bee # (Auto) 1.4 H Eos # (Auto) 0.3 Baso # (Auto) 0.2 Immature Gran # (Auto) 0.20 H Absolute Nucleated RBC 0.00 Immature Gran % 1 H Nucleated RBC % 0 PT 12.2 INR 1.1 APTT 28.7 Puncture Site Left Radial ABG pH 7.45 ABG pCO2 34 ABG pO2 135 H ABG HCO3 23 ABG O2 Saturation 98 ABG Base Excess 0 FiO2 50 Sodium 139 Potassium 4.3 Chloride 104 Carbon Dioxide 25.7 Anion Gap 9 BUN 14 Creatinine 1.0 Estim Creat Clear Calc 48.1 L eGFR > 60 BUN/Creatinine Ratio 14 Glucose 137 H Calculated Osmolality 280 Lactic Acid 2.4 H Calcium 9.8 Corrected Calcium 9.8 Magnesium Total Bilirubin 0.6 AST 18 ALT 22 Alkaline Phosphatase 93 Troponin I 0.044 B-Natriuretic Peptide 1048 H* Total Protein 7.1 Albumin 4.6 Globulin 2.5 Albumin/Globulin Ratio 1.8 Triglycerides Cholesterol LDL Cholesterol, Calc HDL Cholesterol Cholesterol/HDL Ratio Procalcitonin 0.08 TSH Ur Collection Type Clean Catch Urine Color Lt-Yellow Urine Clarity Clear Urine pH 6.0 Ur Specific [place] 1.015 Urine Protein 1+ A Urine Glucose (UA) Negative Urine Ketones Negative Urine Blood Negative Urine Nitrite Positive Urine Bilirubin Negative Urine Urobilinogen (Auto) Negative Ur Leukocyte Esterase Positive Urine RBC 2 Urine WBC 14 H Ur Squamous Epith Cells < 1 Urine Bacteria 2+ A 06/12/24 06/13/24 13:49 05:20 WBC 14.4 H D RBC 4.41 Hgb 12.7 Hct 38.8 MCV 88 MCH 28.8 MCHC 32.7 RDW Std Deviation 48.9 H Plt Count 228 D Neut % (Auto) 73 Lymph % (Auto) 13 Bee % (Auto) 9 Eos % (Auto) 3 Baso % (Auto) 1 Neut # (Auto) 10.5 H Lymph # (Auto) 1.9 Bee # (Auto) 1.4 H Eos # (Auto) 0.5 Baso # (Auto) 0.1 Immature Gran # (Auto) 0.04 H Absolute Nucleated RBC 0.00 Immature Gran % 0 Nucleated RBC % 0 PT INR APTT Puncture Site ABG pH ABG pCO2 ABG pO2 ABG HCO3 ABG O2 Saturation ABG Base Excess FiO2 Sodium 137 Potassium 3.4 D Chloride 101 Carbon Dioxide 25.4 Anion Gap 11 BUN 15 Creatinine 0.9 Estim Creat Clear Calc 54.3 L eGFR > 60 BUN/Creatinine Ratio 17 Glucose 111 H Calculated Osmolality 275 Lactic Acid 0.9 Calcium 9.6 Corrected Calcium 9.6 Magnesium 1.5 L Total Bilirubin 0.7 AST < 10 ALT 17 Alkaline Phosphatase 90 Troponin I B-Natriuretic Peptide Total Protein 6.9 Albumin 4.3 Globulin 2.6 Albumin/Globulin Ratio 1.7 Triglycerides 102 Cholesterol 140 LDL Cholesterol, Calc 79 HDL Cholesterol 41 Cholesterol/HDL Ratio 3.4 L Procalcitonin TSH 1.72 Ur Collection Type Urine Color Urine Clarity Urine pH Ur Specific [place] Urine Protein Urine Glucose (UA) Urine Ketones Urine Blood Urine Nitrite Urine Bilirubin Urine Urobilinogen (Auto) Ur Leukocyte Esterase Urine RBC Urine WBC Ur Squamous Epith Cells Urine Bacteria ABG Interpretation ABG results: 06/12/24 11:25 ABG pH 7.45 ABG pCO2 34 ABG pO2 135 H ABG HCO3 23 ABG O2 Saturation 98 ABG Base Excess 0 Quality Measures Quality Measures none Advance care planning discussed with:: patient Assessment & Plan Assessment Current Active Medications: Generic Name Dose Route Start Last Admin Trade Name Freq PRN Reason Stop Dose Admin Acetaminophen 650 mg 06/12/24 14:10 06/13/24 05:24 Acetaminophen 325 Mg Tablet PO 07/12/24 14:09 650 mg Q6H PRN Administration Fever >100.3 Furosemide 40 mg 06/12/24 21:00 06/12/24 20:49 Furosemide Inj 10 Mg/Ml 4ml Vial IVP 07/12/24 20:59 40 mg BID STEPAN Administration Heparin Sodium (Porcine) 5,000 unit 06/12/24 21:00 06/12/24 20:51 Heparin Sod Inj 5000 Unit/Ml Vial SC 06/26/24 14:14 5,000 unit Q12HR STEPAN Administration Doxycycline Hyclate 100 mg/ 100 mls @ 100 mls/hr 06/12/24 14:30 06/12/24 20:46 Sodium Chloride IV 06/19/24 14:29 100 mls/hr BID STEPAN Administration Ceftriaxone Sodium/Dextrose 50 mls @ 100 mls/hr 06/13/24 09:00 Rocephin/D5w 1gm Iv Premix IV 06/20/24 08:59 DAILY STEPAN Midodrine 5 mg 06/12/24 14:15 Midodrine 5 Mg Tablet PO 07/12/24 14:29 BID PRN SBP <90 Ondansetron HCl 4 mg 06/12/24 14:15 Ondansetron Inj 2 Mg/Ml Inj 2 Ml IV 07/12/24 14:14 Q6H PRN NAUSEA OR VOMITING Protocol Pantoprazole Sodium 40 mg 06/13/24 09:00 Pantoprazole Inj 40 Mg Vial IVP 07/13/24 08:59 QDAY STEPAN Plan In summary: 64-year-old female PMHx of HTN, CVA 5 years ago, COVID-pneumonia, osteoporosis presented with shortness of breath and chest pain, admitted for acute decompensated heart failure with possible pneumonia and UTI. Continued on diuresis and ANTIBIOTICS for pneumonia and UTI. Overall symptoms improving. # Acute hypoxic respiratory failure 2/2 # HF exacerbation # Bilateral pleural effusion Exam disorder presents for 2 days with significant chest pressure since then. CXR mild to moderate CHF, vascular congestion, large right pleural effusion and small left pleural effusion Initially on BiPAP, now on 1 L NC, breathing okay although has some orthopnea laying flat. Continued on LASIX, -3.1 L overall Lower extremity edema resolved, lungs are clear Attempt for paracentesis showed insufficient pleural fluid be drained safely. Echocardiogram showed EF 30 to 35% Pending Pigskin Trimmer with cardiology 06/14/2024 NYHA : Stage C , Class III at baseline ? Continue LASIX 40 mg IV BID ? Fluid restriction 1500 cc ? Salt restriction ? Strict LORENZA's ? Holding HEPARIN for Pigskin Trimmer tomorrow ? Repleted potassium and magnesium # Severe sepsis 2/2: # Community-acquired pneumonia # UTI Admission 4 SIRS positive with tachycardia, tachypnea and leukocytosis UA positive for UTI On ANTIBIOTICS, leukocytosis improving 14 today, tachypnea resolved, tachycardia improving, HR 101 Cultures pending Blood culture repeated, possible contaminant ? Continue DOXYCYCLINE 100 mg BID (12/1 ? Continue CEFTRIAXONE 1 g daily (06/12 ? Follow-up cultures ? Holding fluids 2/2 CHF exacerbation # Primary hypertension # Hx of CVA 5 years ago Chronic condition Lipid panel normal Blood pressure well-controlled likely due to diuretics Patient complained of headache and intermittent bilateral knee pain, even addressed ? Continue home LISINOPRIL 20 mg daily ? Continue home valvulae. 10 mg daily ? Continue MIDODRINE 5 mg BID PRN for SBP less than 90 # Insomnia ? Resumed home GABAPENTIN 100 mg HS ? Resumed MELOXICAM 7.5 mg PRN for pain ? Started MELATONIN 3 mg p.o. HS # Osteoporosis To be managed outpatient Health maintenance Diet: Cardiac GI prophylaxis: PROTONIX DVT prophylaxis: Holding HEPARIN Antibiotics: DOXYCYCLINE, CEFTRIAXONE CODE STATUS: Full code Disposition: Pending cath and cardio recommendations Patient case was discussed with attending, Dr. Matilde Peguero DO and senior residents Dr. Salomon and Dr. Crane. Merlyn Dupont DO PGYI Attending Provider Attestation/Addendum Zandra, Lissett Peguero DO, attest that I was physically present for the [place] portions of the service and evaluated the patient with the resident and I reviewed and discussed the case with the resident and agree with the resident's findings and plans of care as documented above Patient seen and evaluated this AM. She states that she is feeling improved. Patient currently on nasal cannula. Patient underwent US and shows insufficient fluid for thorascentesis. Continue with IV diuresis. Patient noted to be tachycardic in the 130s. Will give one dose of metoprolol 25mg PO x1. Case discussed with cardio, pending echo read. Patient found to have new LBBB on this admission. Plan for cardiac cath tomorrow. NPO after midnight.
[2024-06-13] MEDS: HEPARIN SOD INJ 5000 UNIT/ML VIAL SC ×2 (08:35→20:16)
[2024-06-13] MEDS: cefTRIAXone/D5w 1gm IV premix 50 ML IV (08:35)
[2024-06-13] MEDS: FUROSEMIDE INJ 10 MG/ML 4ML VIAL 40 MG IVP ×2 (08:36→20:16)
[2024-06-13] MEDS: PANTOPRAZOLE INJ 40 MG VIAL IVP (08:37)
--- NOTE | 2024-06-13 09:06 | PD.RESCONSUL ---
HPI Data of Consult Requesting Physician: Lissett Peguero DO Admitting Provider: Lissett Peguero DO Attending Provider: Lissett Peguero DO Primary Care Provider: Terrell Randolph MD Consult Narrative Reason for consult: new onset CHF History of present illness: 64-year-old female with past medical history of CVA, hypertension, subdural hematoma in 2022, COVID-pneumonia, osteoporosis, arthritis, bronchitis, nephrolithiasis, and neuropathy was admitted to the hospital on 06/12/2024 for acute decompensated heart failure, new onset and hypertensive urgency. Patient came in with shortness of breath that started 2 days prior to admission accompanied with chest pain. She mentioned that her chest pain did not radiate to the left upper extremity or her left side of the face during this time. In ED patient was placed on BiPAP and she was given 2 DuoNeb treatments while on the way to the hospital. Initial blood pressure was 161/112, this morning was 138/89 Initially patient was hypertensive, tachycardic, tachypneic, and hypoxic. Initial labs were relevant for leukocytosis (WBC 20.7), Hgb 12.2, potassium 4.3, ABG (pH of 7.45, pCO2 135, and pCO2 of 34), lactic acidosis (lactic acid 2.4), elevated BNP 1048, borderline normal troponins at 0.044, and UA was positive for bacteriuria. Initial imaging included an EKG which showed a new left bundle branch which was not there on prior EKGs from 2022. Additional imaging also included chest x-ray which showed mild to moderate CHF, large right pleural effusion and small left pleural effusion as well as questionable consolidation on the right lower lobe on my assessment. Echo 06/2024 had the following findings: Normal LV size. Severe systolic dysfunction. EF 30-35%. Septal and lateral wall dysynchrony. Cannot determine dystolic function due to AFib. Normal RV size and function. Ascending aorta mildly dilated. 3.6cm. Mild MAC. Mild MR Trace TR. Pleural effusion present. During my assessment patient was already on nasal cannula and saturating well. She had significantly improved and her oxygen requirements and she stated that she did not have any chest pain and did not feel as short of breath as she did when she came in. She had a total balance of -2.3 liters in 24 hours. She mentioned that she had never been told she had any heart issues in the past. She mentioned that she has seen a topper press operator in [place] around 13 years ago after she had her stroke, but at that time everything was unremarkable and she did not follow-up. She mentioned that she was recently taken off her amlodipine and lisinopril?hydrochlorothiazide around 1 week ago due to low blood pressures. She states she usually uses 1 pillow to sleep and has issues laying flat as it causes shortness of breath. Patient also stated that she had been on and off bilateral lower extremity swelling for the past few weeks. Labs today showed a decrease in WBC at 14.4 today compared from 20.7 yesterday, Hgb 12.7, potassium 3.4, magnesium was 1.5, and troponins 0.02. Patient did not have enough pleural fluid to be safely drained during thoracentesis today. PMH: CVA, hypertension, subdural hematoma in 2022, COVID-pneumonia, osteoporosis, arthritis, bronchitis, nephrolithiasis, and neuropathy Surgical Hx: Appendectomy, gastric bypass, tubal ligation, C-sections Physicians and specialists: Dr. Williamson (PCP), Dr. Lang (orthopedic surgeon), Dr. Son (topper press operator in [place]), [facility] ([facility]) Meds: Nortriptyline 100 mg at bedtime, metoprolol 100 mg at bedtime, meloxicam, albuterol, gabapentin 100 mg at bedtime; recently stopped taking amlodipine 10 mg and lisinopril?hydrochlorothiazide 20/25 Social Hx: Denies any tobacco, illicit drugs, admits social drinking cc:: cc: Lissett Peguero, Review of Systems Review of Systems Narrative Review of Systems: Constitutional: Denies sweats, Denies weight loss/gain, Denies fever, Denies chills. HEENT: Denies hearing loss, Denies ear pain, Denies postnasal drip, Denies double vision, Denies blurry vision. Respiratory: Admits shortness of breath, Denies cough, Denies wheezing. Cardiovascular: Admits chest pain, Denies palpitations, Denies sudden loss of consciousness. GI: Denies blood in stool, Denies constipation, Denies abdominal pain, Denies difficulty swallowing, Denies nausea or vomit. : Denies urinary incontinence, Denies pain while urinating, Denies increased urinary frequency. MSK: Denies joint pain, Denies joint swelling, Denies numbness. Skin: Denies rash, Denies itching, Denies easy bruising. Neuro: Denies headaches, Denies dizziness, Denies seizures. Past Medical History Past Medical History Comments PMH COMMENT: PMH: CVA, hypertension, subdural hematoma in 2022, COVID-pneumonia, osteoporosis, arthritis, bronchitis, nephrolithiasis, and neuropathy Surgical Hx: Appendectomy, gastric bypass, tubal ligation, C-sections Physicians and specialists: Dr. Williamson (PCP), Dr. Lang (orthopedic surgeon), Dr. Son (topper press operator in [place]), neurologist ([facility]) Meds: Nortriptyline 100 mg at bedtime, metoprolol 100 mg at bedtime, meloxicam, albuterol, gabapentin 100 mg at bedtime; recently stopped taking amlodipine 10 mg and lisinopril?hydrochlorothiazide Social Hx: Denies any tobacco, illicit drugs, admits social drinking Exam Vital Signs Temp Pulse Resp BP Pulse Ox O2 Del Method O2 Flow Rate 98.0 F 103 H 17 138/89 H 96 Nasal Cannula 3 06/13/24 07:55 06/13/24 08:36 06/13/24 07:55 06/13/24 08:36 06/13/24 07:55 06/13/24 07:55 06/13/24 07:55 FiO2 40 06/12/24 19:08 Narrative Exam General: A/O x3, obese on NC Eyes: PERRL, EOMI. Anicteric, vision grossly intact. Ears: No ear pain, no ear discharge, Hearing grossly intact. Nose: No nasal discharge. Mouth/Throat: Dry mucous membranes, no redness, no lesions. Neck: Neck supple, non-tender, no cervical lymphadenopathy. Lungs: Decreased JACKSON lower lobes, No accessory muscle use. Cardio: Normal S1/S2, tachycardic, 2/6 ejection systolic murmur, no JVD Abdomen: Soft, non-tender, no palpable masses, peristalsis present, no guarding or rebound. Extremities: Symmetrical, no significant deformities, 1+ peripheral edema , non-tender, peripheral pulses presents. JACKSON UE edema at elbow level Skin: No rashes, no lesions, warm to touch. Neuro: No focal neurological deficits. motor and sensory intact Psych: Cooperative, appropriate mood and effect. Results Labs 06/14/24 05:00 06/14/24 05:00 Labs: Short CBC 06/12/24 06/13/24 Range/Units 10:12 05:20 WBC 20.7 H 14.4 H D (3.6-11.0) Thou/mm3 Hgb 12.2 12.7 (12.0-16.0) g/dL Hct 38.1 38.8 (36.0-46.0) % Plt Count 179 228 D (140-440) Thou/mm3 BMP 06/12/24 06/13/24 10:12 05:20 Sodium 139 137 Potassium 4.3 3.4 D Chloride 104 101 Carbon Dioxide 25.7 25.4 BUN 14 15 Creatinine 1.0 0.9 Glucose 137 H 111 H Calcium 9.8 9.6 Cardiac Enzymes 06/12/24 06/13/24 Range/Units 10:12 05:20 Troponin I 0.044 0.020 (0.0-0.045) ng/mL Liver Function 06/12/24 06/13/24 Range/Units 10:12 05:20 Total Bilirubin 0.6 0.7 (0.3-1.2) mg/dL AST 18 < 10 (0-34) U/L ALT 22 17 (10-49) U/L Alkaline Phosphatase 93 90 (46-116) U/L Albumin 4.6 4.3 (3.4-4.8) gm/dL Urine 06/12/24 Range/Units 11:53 Urine Color Lt-Yellow (Lt Yel-Yel) Urine Clarity Clear (Clear/Hazy) Urine pH 6.0 (5.0-7.0) Ur Specific [place] 1.015 (1.001-1.035) Urine Protein 1+ A (Neg - Trace) Urine Glucose (UA) Negative (Negative) ABG Interpretation ABG results: 06/12/24 11:25 ABG pH 7.45 ABG pCO2 34 ABG pO2 135 H ABG HCO3 23 ABG O2 Saturation 98 ABG Base Excess 0 Quality Measures Quality Measures none Advance care planning discussed with:: patient Medications Home Medications and Allergies Home Medications ?Medication ?Instructions ?Recorded ?Confirmed ?Type acetaminophen 500 mg capsule 500 mg PO Q6H PRN Breakthrough 05/24/24 06/12/24 History Pain, Mild cholecalciferol (vitamin D3) 50 50 mcg PO QWEEK 05/24/24 06/12/24 History mcg (2,000 unit) capsule cyclobenzaprine 10 mg tablet 10 mg PO BID 05/24/24 06/12/24 History metoprolol succinate 100 mg 100 mg PO HS 05/24/24 06/12/24 History tablet,extended release 24 hr nortriptyline 50 mg capsule 100 mg PO HS 05/24/24 06/13/24 History (Pamelor) gabapentin 800 mg tablet 100 mg PO HS 06/12/24 06/13/24 History meloxicam 7.5 mg tablet 7.5 mg PO HS 06/12/24 06/12/24 History sodium zirconium cyclosilicate 10 10 g PO DAILY 06/12/24 06/12/24 History gram oral powder packet (Lokelma) Allergies Allergy/AdvReac Type Severity Reaction Status Date / Time Penicillins Allergy Severe Hives Verified 06/12/24 10:46 Visit Medications Acetaminophen (Acetaminophen 325 Mg Tablet) 650 mg PO Q6H PRN PRN Reason: Fever >100.3 Stop: 07/12/24 14:09 Last Admin: 06/13/24 05:24 Dose: 650 mg Furosemide (Furosemide Inj 10 Mg/Ml 4ml Vial) 40 mg IVP BID [facility] Stop: 07/12/24 20:59 Last Admin: 06/13/24 08:36 Dose: 40 mg Heparin Sodium (Porcine) (Heparin Sod Inj 5000 Unit/Ml Vial) 5,000 unit SC Q12HR STEPAN Stop: 06/26/24 14:14 Last Admin: 06/13/24 08:35 Dose: 5,000 unit Doxycycline Hyclate 100 mg/ (Sodium Chloride) 100 mls @ 100 mls/hr IV BID STEPAN Stop: 06/19/24 14:29 Last Admin: 06/12/24 20:46 Dose: 100 mls/hr Ceftriaxone Sodium/Dextrose (Rocephin/D5w 1gm Iv Premix) 50 mls @ 100 mls/hr IV DAILY STEPAN Stop: 06/20/24 08:59 Last Admin: 06/13/24 08:35 Dose: 100 mls/hr Magnesium Sulfate (Magnesium Sulfate Ivpb) 4 gm in 50 mls @ 12.5 mls/hr IV X1 ONE Stop: 06/13/24 11:49 Magnesium Sulfate (Magnesium Sulfate Ivpb) 4 gm in 50 mls @ 12.5 mls/hr IV X1 ONE Stop: 06/13/24 11:52 Midodrine (Midodrine 5 Mg Tablet) 5 mg PO BID PRN PRN Reason: SBP <90 Stop: 07/12/24 14:29 Ondansetron HCl (Ondansetron Inj 2 Mg/Ml Inj 2 Ml) 4 mg IV Q6H PRN; Protocol PRN Reason: NAUSEA OR VOMITING Stop: 07/12/24 14:14 Pantoprazole Sodium (Pantoprazole Inj 40 Mg Vial) 40 mg IVP QDAY SETPAN Stop: 07/13/24 08:59 Last Admin: 06/13/24 08:37 Dose: 40 mg Discontinued Medications Celecoxib (Celecoxib 100 Mg Capsule) 100 mg PO X1 ONE Stop: 06/12/24 17:57 Last Admin: 06/12/24 19:55 Dose: 100 mg Enalaprilat (Enalaprilat Inj 1.25 Mg/Ml Vial) 0.625 mg IVP X1 ONE Stop: 06/12/24 11:02 Last Admin: 06/12/24 11:21 Dose: 0.625 mg Furosemide (Furosemide Inj 10 Mg/Ml 4ml Vial) 40 mg IVP X1 ONE Stop: 06/12/24 11:38 Last Admin: 06/12/24 11:47 Dose: 40 mg Heparin Sodium (Porcine) (Heparin Sod Inj 5000 Unit/Ml Vial) 5,000 unit SC Q12H STEPAN Stop: 06/26/24 14:14 Last Admin: 06/12/24 14:49 Dose: 5,000 unit Hydralazine HCl (Hydralazine Inj 20 Mg/Ml Vial) 10 mg IV X1 ONE Stop: 06/12/24 10:57 Last Admin: 06/12/24 11:21 Dose: 10 mg Ceftriaxone Sodium/Dextrose (Rocephin/D5w 1gm Iv Premix) 50 mls @ 100 mls/hr IV X1 ONE Stop: 06/12/24 12:13 Last Infusion: 06/12/24 12:31 Dose: Infused Azithromycin 500 mg/ Sodium (Chloride) 250 mls @ 250 mls/hr IV X1 ONE Stop: 06/12/24 12:44 Last Infusion: 06/12/24 14:00 Dose: Infused Nitroglycerin (Nitroglycerin 0.4 Mg Subl Btl #25) 0.4 mg SL X1 ONE Stop: 06/12/24 10:57 Last Admin: 06/12/24 11:17 Dose: 0.4 mg Nitroglycerin (Nitroglycerin Oint 2% 1 Inch Packet) 2 inch TOP X1 ONE Stop: 06/12/24 11:16 Last Admin: 06/12/24 11:22 Dose: 2 inch Nitroglycerin (Nitroglycerin 0.4 Mg Subl Btl #25) 0.4 mg SL X1 ONE Stop: 06/12/24 11:28 Last Admin: 06/12/24 11:27 Dose: 0.4 mg Potassium Chloride (Potassium Chloride 20 Meq Tabcr) 40 meq PO X1 ONE Stop: 06/13/24 07:51 Assessment & Plan Plan 64-year-old female with past medical history of CVA, hypertension, subdural hematoma in 2022, COVID-pneumonia, osteoporosis, arthritis, bronchitis, nephrolithiasis, and neuropathy was admitted to the hospital on 06/12/2024 for acute hypoxic respiratory failure secondary to acute decompensated heart failure, new onset and hypertensive urgency. 1. Acute decompensated systolic heart failure, new onset (EF 35 to 40%) 2. Acute hypoxic respiratory failure 3. Left bundle branch block - ? new 4. Atypical chest pain 5.Bilateral pleural effusions ?Patient initially presented with shortness of breath requiring her to be placed on BiPAP. ?Patient endorses having some bilateral lower extremity swelling on and off along with some chest pain that comes and goes and sometimes radiates to the back. -She sleeps with one pillow below her head ?Chest x-ray also showed bilateral pleural effusions and moderate CHF. ?EKG showed a new left bundle branch ? BNP on admission was 1048 ?Echo findings were the following: Normal LV size. Severe systolic dysfunction. EF 30-35%. Septal and lateral wall dysynchrony. Cannot determine dystolic function due to AFib. Normal RV size and function. Ascending aorta mildly dilated. 3.6cm. Mild MAC. Mild MR Trace TR. Pleural effusion present. ?Patient had total balance of -2.3 L in 24 hours ?Potassium was 3.4 and magnesium 1.5 this morning Plan: ?Recommend Lasix 40 mg twice daily for diuresis, goal -2 L in 24 hours ?Recommend to keep patient n.p.o. after breakfast tomorrow for possible heart cath if blood cultures are negative ?Recommend to aggressively replete potassium and magnesium to keep potassium above 4 and magnesium above 5 ?Strict LORENZA's ? Daily weights ? Fluid restriction 1500 ? 2 g sodium diet 6. Hypertensive urgency ?Initially patient came in with a blood pressure of 161/112 ?Patient did not have any signs of end organ damage ?Morning blood pressure 130/89 Plan: ?Recommend to stay away from beta-blockers as patient is on acute severe heart failure exacerbation 7. Sepsis likely secondary to community-acquired pneumonia versus UTI versus questionable GNR versus GPC bacteremia 8. GNR/GPC Bacteremia 9. community-acquired pneumonia 10. UTI ?Initially patient came in meeting SIRS criteria 3 out of 4 with leukocytosis, tachycardia, and tachypnea ? WBC 20.7 on admission down trended to 14.4 today ? UA was positive for bacteria ? Chest x-ray had some questionable right lower lobe consolidation ?Initial blood cultures grew GPC's and GNR's prelim ?Patient currently on Rocephin as well as doxycycline ?Continue current management as per primary care team 11. Hx of subdural hematoma 12. Hx of CVA 13. Hx of osteoporosis 14. Hx of neuropathy ?At home patient takes gabapentin 100 mg at bedtime, cyclobenzaprine 10 mg twice daily, and meloxicam 7.5 mg at bedtime ?Recommend to continue these during her hospital stay ?Recommend patient be on high intensity statin given history of CVA Continue rest of management as per primary team. We are grateful to be able to participate in Mrs. Haywood's care. Thank you for the consult Plan of care discussed with attending Pharmacist In Charge Owner, Dr Washington Golden MD PGY-1 Attending Provider Attestation/Addendum I have personally seen and examined the patient separately on the above date of service and discussed the plan of care with the resident. I reviewed the resident Dr. Hampton consultation progress note and agree with the resident findings and plan in the note above and have also edited the documentation to reflect my findings and plan. A 64-year-old female with a past medical history of CVA, hypertension, subdural hematoma in 2022, COVID-pneumonia, osteoporosis osteoarthritis, nephrolithiasis and neuropathy peripheral presented to the hospital for further evaluation of shortness of breath. Patient was found to have acute hypoxic respiratory failure secondary to acute decompensated heart failure and also had hypertensive urgency. 1. Acute hypoxic respiratory failure 2. Acute severe systolic congestive heart failure exacerbation with an EF of 30 to 35% 3. New onset left bundle branch block 4. Atypical chest pain 5. Pleural effusions bilateral 6. Hypertensive urgency 7. CVA 8. Subdural hematoma in 2022 9. Osteoarthritis osteoporosis 10. Nephrolithiasis 11. Peripheral neuropathy 12. History of COVID-pneumonia. Echocardiogram from today showed severe LV dysfunction with an EF of 30 to 35% with septal and lateral valgus 20 secondary to the left bundle branch block. Normal RV size and function. Mild valvular abnormalities. Diastolic dysfunction could not be determined because of the A-fib. There was evidence of pleural effusion. Chest x-ray showed bilateral pleural effusions and moderate CHF and EKG showed new left bundle branch block but otherwise no acute ST-T changes. BNP was elevated at 1048. Patient with new onset severe systolic congestive heart failure and will need aggressive diuresis with Lasix 40 mg IV twice daily. Here to unclear etiology of the systolic heart failure ischemic versus nonischemic versus left bundle related. Patient needs goal-directed medical therapy with beta-neil Entresto as well as spironolactone. Will start with metoprolol XL for the patient and eventually patient can be started on Entresto and spironolactone if there is any blood pressure room. Strict input output, daily weights 2 g odium diet. Keep potassium greater than 4 and magnesium greater than 2.0 Atypical chest pain: Patient does have a history of chest pain but appears to be atypical as mentioned in the HPI. Family history significant for heart disease. Also also had history of hypertension hyperlipidemia as well as CVA. Patient troponins were negative but she has new onset systolic congestive heart failure with regional wall motion abnormalities as mentioned above and patient will need a further ischemic evaluation. Will plan for cardiac catheterization but apparently patient's blood cultures are positive and there is repeats that cultures are sent and and will reevaluate the blood cultures tomorrow and make a decision about the left heart cardiac catheterization. Patient is n.p.o. after breakfast and will follow-up the blood culture results. Aspirin 81 mg once daily high intensity statin Lipitor or Crestor, beta-neil metoprolol XL if blood pressure permissible TSH A1c and lipid profile for further cardiac risk stratification Hypertensive urgency: Blood pressure elevated up to 160-180 mmHg on admission. Patient at home on metoprolol XL 100 mg once daily. Start with low-dose metoprolol XL 25 mg once daily and have enough room for Entresto and spironolactone as the patient does have severe systolic congestive heart failure. Hyperlipidemia: On statin check lipid profile Management of rest of the medical conditions as per primary team and other consultants. Thank you for the consult and allowing me to participate in the care of the patient. Cardiology will continue to follow. Vikram Delarosa M.D. Interventional Cardiology
[2024-06-13] MEDS: POTASSIUM CHLORIDE 20 mEq TABCR 40 MEQ PO (09:17)
[2024-06-13] MEDS: DOXYCYCLINE INJ 100 MG in SODIUM CHLORIDE 0.9% (P) 100 ML IV ×2 (10:11→20:15)
--- NOTE | 2024-06-13 11:09 | PD.RESEVENT ---
Documentation for date of: 06/13/24 Event Note Event Note: Patient requested discussion regarding CODE STATUS. Patient stated she would like to be made FULL CODE. The hospitalist team will honor the patient's wishes. Patient case was discussed with attending, Dr. Matilde Peguero DO and senior residents Dr. Salomon and Dr. Crane. Merlyn Dupont DO PGYI
[2024-06-13] MEDS: METOPROLOL TARTRATE 25 MG TABLET PO (14:01)
[2024-06-13] MEDS: Magnesium Sulfate 4 GM Ivpb 4 GM/50 ML BAG IV ×2 (14:02→17:01)
--- NOTE | 2024-06-13 16:43 | PC.NURSE ---
Patient is inquiring about home medication, notified Dr. Dupont, he will review medication and follow up
[2024-06-13] MEDS: MELATONIN 3 MG TABLET PO (20:15)
[2024-06-13] MEDS: GABAPENTIN 100 MG CAPSULE PO (20:15)
[2024-06-14] VITALS (12 sets, daily range): BP systolic 125–160; BP diastolic 84–99; PULSE 98–126; RESP 15–22; TEMP 36.1–37.1; O2SAT 96–99
[2024-06-14 05:47] LABS: Basophils # (Auto) 0.1 Thou/mm3 (0.0-0.2); Basophils % (Auto) 1 % (0-2.5); Eosinophils # (Auto) 0.2 Thou/mm3 (0.0-0.5); Eosinophils % (Auto) 2 % (0-10); Hematocrit 40.3 % (36.0-46.0); Hemoglobin 13.3 g/dL (12.0-16.0); Immature Granulocytes % (Auto) 1 % (0-0); Immature Granulocytes Auto 0.11 Thou/mm3 (0.00-0.00); Lymphocytes # (Auto) 1.9 Thou/mm3 (1.0-4.8); Lymphocytes % (Auto) 16 % (10-50); Mean Corpuscular Hemoglobin 29.2 pg (25.0-35.0); Mean Corpuscular Volume 89 fL (80-100); Monocytes # (Auto) 1.3 Thou/mm3 (0.0-0.8); Monocytes % (Auto) 11 % (0-12); Neutrophils # (Auto) 8.5 Thou/mm3 (1.8-7.7); Neutrophils % (Auto) 71 % (37-80); Nucleated Red Blood Cell % 0 /100 WBC (0); Platelet Count 274 Thou/mm3 (140-440); RDW Standard Deviation 48.4 fL (36.4-46.3); Red Blood Count 4.55 Miln/mm3 (4.00-5.20)
[2024-06-14 06:14] LABS: Alanine Aminotransferase 17 U/L (10-49); Albumin, Serum 4.5 gm/dL (3.4-4.8); Albumin/Globulin Ratio 1.6 (1.2-2.2); Alkaline Phosphatase 95 U/L (46-116); Anion Gap 9 (7-16); Aspartate Amino Transferase 17 U/L (0-34); BUN/Creatinine Ratio 22 Ratio (12-20); Bilirubin,Total 0.4 mg/dL (0.3-1.2); Blood Urea Nitrogen 24 mg/dL (9-23); Calcium 9.7 mg/dL (8.3-10.6); Calcium (Corrected) 9.7 mg/dL (8.5-10.1); Carbon Dioxide 26.6 mMol/L (20.0-31.0); Chloride 100 mMol/L (98-107); Creatinine (Component) 1.1 mg/dL (0.6-1.3); Estimated Creatinine Clearance 44.5 mL/min (>60); Globulin 2.8 gm/dL (2.3-3.5); Glucose 120 mg/dL (74-106); Magnesium 2.9 mg/dL (1.6-2.6); Osmolality,Calculated 276 (275-295); Potassium 3.6 mMol/L (3.4-5.1); Sodium 136 mMol/L (136-145); Total Protein 7.3 gm/dL (5.7-8.2); eGFR 55 See Note
[2024-06-14] MEDS: PANTOPRAZOLE INJ 40 MG VIAL IVP (09:04)
[2024-06-14] MEDS: FUROSEMIDE INJ 10 MG/ML 4ML VIAL 40 MG IVP (09:05)
[2024-06-14] MEDS: DOXYCYCLINE INJ 100 MG in SODIUM CHLORIDE 0.9% (P) 100 ML IV (09:08)
[2024-06-14] MEDS: cefTRIAXone/D5w 1gm IV premix 50 ML IV (09:08)
--- NOTE | 2024-06-14 09:41 | ESPR_ITS ---
Documentation for date of: 06/14/24 Subjective Subjective Interval history: Patient was seen and examined at bedside this morning. Patient had total balance of -3L in 24 hours Patient maintained heart rate above 100s overnight. Patient's blood pressure has also been elevated throughout the night in the 130s to 140s systolic and 80s to 90s diastolic. Repeat blood cultures on 06/13/2024 are negative preliminary Patient states that she is feeling well and has no new complaints at this time. ?N.p.o. after midnight for heart cath tomorrow morning at 11 am All risks benefits and alternatives of the left heart cardiac catheterization have been discussed in detail with the patient including the risk of bleeding, heart attack, stroke and in detail. Patient understands and agreeable for the procedure. Consent obtained from the patient Exam Vital Signs Temp Pulse Resp BP Pulse Ox O2 Del Method O2 Flow Rate 97.3 F 126 H 21 H 138/98 H 96 Nasal Cannula 3 06/14/24 08:00 06/14/24 09:05 06/14/24 08:00 06/14/24 09:05 06/14/24 08:00 06/14/24 08:00 06/14/24 08:00 FiO2 40 06/12/24 19:08 Narrative Exam General: A/O x3, obese on NC Eyes: PERRL, EOMI. Anicteric, vision grossly intact. Ears: No ear pain, no ear discharge, Hearing grossly intact. Nose: No nasal discharge. Mouth/Throat: Dry mucous membranes, no redness, no lesions. Neck: Neck supple, non-tender, no cervical lymphadenopathy. Lungs: Decreased JACKSON lower lobes, No accessory muscle use. Cardio: Normal S1/S2, tachycardic, 2/6 ejection systolic murmur, no JVD Abdomen: Soft, non-tender, no palpable masses, peristalsis present, no guarding or rebound. Extremities: Symmetrical, no significant deformities, 1+ peripheral edema , non-tender, peripheral pulses presents. JACKSON UE edema at elbow level Skin: No rashes, no lesions, warm to touch. Neuro: No focal neurological deficits. motor and sensory intact Psych: Cooperative, appropriate mood and effect. Objective Labs 06/14/24 05:00 06/14/24 05:00 Labs: Laboratory Results - last 24 hr 06/14/24 05:00 WBC 12.0 H RBC 4.55 Hgb 13.3 Hct 40.3 MCV 89 MCH 29.2 MCHC 33.0 RDW Std Deviation 48.4 H Plt Count 274 D Neut % (Auto) 71 Lymph % (Auto) 16 [place] % (Auto) 11 Eos % (Auto) 2 Baso % (Auto) 1 Neut # (Auto) 8.5 H Lymph # (Auto) 1.9 [place] # (Auto) 1.3 H Eos # (Auto) 0.2 Baso # (Auto) 0.1 Immature Gran # (Auto) 0.11 H Absolute Nucleated RBC 0.00 Immature Gran % 1 H Nucleated RBC % 0 Sodium 136 Potassium 3.6 Chloride 100 Carbon Dioxide 26.6 Anion Gap 9 BUN 24 H Creatinine 1.1 Estim Creat Clear Calc 44.5 L eGFR 55 L BUN/Creatinine Ratio 22 H Glucose 120 H Calculated Osmolality 276 Calcium 9.7 Corrected Calcium 9.7 Phosphorus 3.0 Magnesium 2.9 H Total Bilirubin 0.4 AST 17 ALT 17 Alkaline Phosphatase 95 Total Protein 7.3 Albumin 4.5 Globulin 2.8 Albumin/Globulin Ratio 1.6 ABG Interpretation ABG results: 06/12/24 11:25 ABG pH 7.45 ABG pCO2 34 ABG pO2 135 H ABG HCO3 23 ABG O2 Saturation 98 ABG Base Excess 0 Quality Measures Quality Measures none Advance care planning discussed with:: patient Assessment & Plan Assessment Current Active Medications: Generic Name Dose Route Start Last Admin Trade Name Freq PRN Reason Stop Dose Admin Acetaminophen 650 mg 06/12/24 14:10 06/13/24 22:45 Acetaminophen 325 Mg Tablet PO 07/12/24 14:09 650 mg Q6H PRN Administration Fever >100.3 Furosemide 40 mg 06/12/24 21:00 06/14/24 09:05 Furosemide Inj 10 Mg/Ml 4ml Vial IVP 07/12/24 20:59 40 mg BID STEPAN Administration Gabapentin 100 mg 06/13/24 21:00 06/13/24 20:15 Gabapentin 100 Mg Capsule PO 07/13/24 20:59 100 mg HS STEPAN Administration Heparin Sodium (Porcine) 5,000 unit 06/12/24 21:00 06/13/24 20:16 Heparin Sod Inj 5000 Unit/Ml Vial SC 06/26/24 14:14 5,000 unit Q12HR STEPAN Administration Doxycycline Hyclate 100 mg/ 100 mls @ 100 mls/hr 06/12/24 14:30 06/14/24 09:08 Sodium Chloride IV 06/19/24 14:29 100 mls/hr BID STEPAN Administration Ceftriaxone Sodium/Dextrose 50 mls @ 100 mls/hr 06/13/24 09:00 06/14/24 09:08 Rocephin/D5w 1gm Iv Premix IV 06/20/24 08:59 100 mls/hr DAILY STEPAN Administration Melatonin 3 mg 06/13/24 21:00 06/13/24 20:15 Melatonin 3 Mg Tablet PO 07/13/24 20:59 3 mg HS STEPAN Administration Meloxicam 7.5 mg 06/13/24 21:00 Meloxicam 7.5 Mg Tablet PO 07/13/24 20:59 DAILY PRN INFLAMMATION Midodrine 5 mg 06/12/24 14:15 Midodrine 5 Mg Tablet PO 07/12/24 14:29 BID PRN SBP <90 Ondansetron HCl 4 mg 06/12/24 14:15 Ondansetron Inj 2 Mg/Ml Inj 2 Ml IV 07/12/24 14:14 Q6H PRN NAUSEA OR VOMITING Protocol Pantoprazole Sodium 40 mg 06/13/24 09:00 06/14/24 09:04 Pantoprazole Inj 40 Mg Vial IVP 07/13/24 08:59 40 mg QDAY STEPAN Administration Plan 64-year-old female with past medical history of CVA, hypertension, subdural hematoma in 2022, COVID-pneumonia, osteoporosis, arthritis, bronchitis, nephrolithiasis, and neuropathy was admitted to the hospital on 06/12/2024 for acute hypoxic respiratory failure secondary to acute decompensated heart failure, new onset and hypertensive urgency. 1. Acute decompensated systolic heart failure, new onset (EF 35 to 40%) 2. Acute hypoxic respiratory failure 3. Left bundle branch ? new 4. Atypical chest pain 5.Bilateral pleural effusions ?Patient initially presented with shortness of breath requiring her to be placed on BiPAP. ?Patient endorses having some bilateral lower extremity swelling on and off along with some chest pain that comes and goes and sometimes radiates to the back. -She sleeps with one pillow below her head ?Chest x-ray also showed bilateral pleural effusions and moderate CHF. ?EKG showed a new left bundle branch ? BNP on admission was 1048 ?Echo findings were the following: Normal LV size. Severe systolic dysfunction. EF 30-35%. Septal and lateral wall dysynchrony. Cannot determine dystolic function due to AFib. Normal RV size and function. Ascending aorta mildly dilated. 3.6cm. Mild MAC. Mild MR Trace TR. Pleural effusion present. ?Patient had total balance of -3.1 L in 24 hours ?Potassium was 3.6 and magnesium 2.9 this morning Plan: ? Recommend continue Lasix 40 mg twice daily for diuresis, goal -2 L in 24 hours ? Recommend metoprolol XL 100 mg daily, aspirin 81 mg once daily, high intensity statin ? Recommend to start goal-directed medical therapy with Entresto and spironolactone is blood pressure permissible ? Recommend to aggressively replete potassium and magnesium to keep potassium above 4 and magnesium above 5 ? Strict LORENZA's ? Daily weights ? Fluid restriction 1500 ? 2 g sodium diet ? N.p.o. after midnight for heart cath tomorrow morning at 11 am All risks benefits and alternatives of the left heart cardiac catheterization have been discussed in detail with the patient including the risk of bleeding, heart attack, stroke and in detail. Patient understands and agreeable for the procedure. Consent obtained from the patient 6. Hypertensive urgency ?Initially patient came in with a blood pressure of 161/112 ?Patient did not have any signs of end organ damage ?Morning blood pressure 160/94 Plan: ? Recommend metoprolol XL 100 mg daily ?Would recommend to start patient on Entresto 7. Sepsis likely secondary to community-acquired pneumonia versus UTI versus questionable GNR versus GPC bacteremia 8. GNR/GPC Bacteremia? 9. community-acquired pneumonia 10. UTI ?Initially patient came in meeting SIRS criteria 3 out of 4 with leukocytosis, tachycardia, and tachypnea ? WBC 20.7 on admission down trended to 12 today ? UA was positive for bacteria ? Chest x-ray had some questionable right lower lobe consolidation ?Initial blood cultures grew GPC's and GNR's prelim -Repeat Blood cx had no growth in 24 hours. ?Patient currently on Rocephin as well as doxycycline ?Continue current management as per primary care team 11. Hx of subdural hematoma 12. Hx of CVA 13. Hx of osteoporosis 14. Hx of neuropathy ?At home patient takes gabapentin 100 mg at bedtime, cyclobenzaprine 10 mg twice daily, and meloxicam 7.5 mg at bedtime ?Recommend to continue these during her hospital stay ?Recommend patient be on high intensity statin given history of CVA Continue rest of management as per primary team. We are grateful to be able to participate in Mrs. Haywood's care. Thank you for the consult Plan of care discussed with attending Elementary Vocal Music Teacher, Dr Washington Golden MD PGY-1 Attending Provider Attestation/Addendum I have personally seen and examined the patient separately on the above date of service and discussed the plan of care with the resident. I reviewed the resident Dr. Hampton consultation progress note and agree with the resident findings and plan in the note above and have also edited the documentation to reflect my findings and plan. Vikram Delarosa M.D. Interventional Cardiology
[2024-06-14] MEDS: POTASSIUM CHLORIDE 20 mEq TABCR 40 MEQ PO (09:45)
--- NOTE | 2024-06-14 10:07 | ESPR_ITS ---
<Statement entered by Robert Crane MD - 06/14/24 16:11> Ms. Haywood is a 64-year-old female admitted for acute decompensation of systolic heart failure, LVEF 35 to 35%. Patient treated with IV Lasix 40 mg twice daily, now on 3 L via nasal cannula, saturating 95-97%. We will continue IV Lasix 40 mg, reduced from twice daily to once daily, net output of > 5 L during this hospitalization. Cardiology is consulted, appreciate Dr. Delarosa's recommendations. Patient was also noted to have septal and lateral wall dyssynchrony due to A-fib on echocardiogram. HR 100-110bpm, restarted home metoprolol XL 100 mg daily. Will continue IV Rocephin for E. coli UTI, noted on urine culture. Preliminary blood culture showed GNR, negative final blood culture results. Patient to be scheduled for cardiac catheterization tomorrow 06/15/2024, 48 hours post negative blood culture. Resumed diet at this time, will keep NPO after midnight for cardiac cath. Patient examined and case discussed with the team including attending physician. Note reviewed, I agree with the care plan as documented. - Robert Crane MD, PGY 2 Documentation for date of: 06/14/24 Subjective Subjective Interval history: No acute overnight events. On 3L NC, breathing comfortably, satting well, orthopnea improved. Tolerating oral intake without nausea and vomiting. Denies fever, chills, headaches, chest pain, sob, cough, GI or urinary symptoms. Exam Vital Signs Temp Pulse Resp BP Pulse Ox O2 Del Method O2 Flow Rate 97.3 F 126 H 21 H 138/98 H 96 Nasal Cannula 3 06/14/24 08:00 06/14/24 09:05 06/14/24 08:00 06/14/24 09:05 06/14/24 08:00 06/14/24 08:00 06/14/24 08:00 FiO2 40 06/12/24 19:08 Narrative Exam Constitutional Alert, oriented x3. Obese HEENT Vision grossly intact. Patent nares. Trachea midline. Respiratory Chest normal on inspection and clear to auscultation bilaterally. On 1L NC Cardiovascular S1 and S2 audible, RRR. No murmurs or carotid bruit. No gross JVD. Abdominal Soft and non tender to palpation in all quadrants. BS + Genitourinary No bladder tenderness, no flank pain. Normal to palpation. Musculoskeletal Extremities tone within normal limits. resolved edema of lower extremities Neurological CN II - XII grossly intact. Extremity motor and sensation grossly intact. Skin Warm, dry and intact. No apparent lesions. Psychiatric Patient has a good affect, is cooperative. Objective Labs 06/14/24 05:00 06/14/24 05:00 Labs: Laboratory Results - last 24 hr 06/14/24 05:00 WBC 12.0 H RBC 4.55 Hgb 13.3 Hct 40.3 MCV 89 MCH 29.2 MCHC 33.0 RDW Std Deviation 48.4 H Plt Count 274 D Neut % (Auto) 71 Lymph % (Auto) 16 [place] % (Auto) 11 Eos % (Auto) 2 Baso % (Auto) 1 Neut # (Auto) 8.5 H Lymph # (Auto) 1.9 [place] # (Auto) 1.3 H Eos # (Auto) 0.2 Baso # (Auto) 0.1 Immature Gran # (Auto) 0.11 H Absolute Nucleated RBC 0.00 Immature Gran % 1 H Nucleated RBC % 0 Sodium 136 Potassium 3.6 Chloride 100 Carbon Dioxide 26.6 Anion Gap 9 BUN 24 H Creatinine 1.1 Estim Creat Clear Calc 44.5 L eGFR 55 L BUN/Creatinine Ratio 22 H Glucose 120 H Calculated Osmolality 276 Calcium 9.7 Corrected Calcium 9.7 Phosphorus 3.0 Magnesium 2.9 H Total Bilirubin 0.4 AST 17 ALT 17 Alkaline Phosphatase 95 Total Protein 7.3 Albumin 4.5 Globulin 2.8 Albumin/Globulin Ratio 1.6 ABG Interpretation ABG results: 06/12/24 11:25 ABG pH 7.45 ABG pCO2 34 ABG pO2 135 H ABG HCO3 23 ABG O2 Saturation 98 ABG Base Excess 0 Quality Measures Quality Measures none Advance care planning discussed with:: patient Assessment & Plan Assessment Current Active Medications: Generic Name Dose Route Start Last Admin Trade Name Freq PRN Reason Stop Dose Admin Acetaminophen 650 mg 06/12/24 14:10 06/13/24 22:45 Acetaminophen 325 Mg Tablet PO 07/12/24 14:09 650 mg Q6H PRN Administration Fever >100.3 Furosemide 40 mg 06/12/24 21:00 06/14/24 09:05 Furosemide Inj 10 Mg/Ml 4ml Vial IVP 07/12/24 20:59 40 mg BID STEPAN Administration Gabapentin 100 mg 06/13/24 21:00 06/13/24 20:15 Gabapentin 100 Mg Capsule PO 07/13/24 20:59 100 mg HS STEPAN Administration Heparin Sodium (Porcine) 5,000 unit 06/12/24 21:00 06/13/24 20:16 Heparin Sod Inj 5000 Unit/Ml Vial SC 06/26/24 14:14 5,000 unit Q12HR STEPAN Administration Doxycycline Hyclate 100 mg/ 100 mls @ 100 mls/hr 06/12/24 14:30 06/14/24 09:08 Sodium Chloride IV 06/19/24 14:29 100 mls/hr BID STEPAN Administration Ceftriaxone Sodium/Dextrose 50 mls @ 100 mls/hr 06/13/24 09:00 06/14/24 09:08 Rocephin/D5w 1gm Iv Premix IV 06/20/24 08:59 100 mls/hr DAILY STEPAN Administration Melatonin 3 mg 06/13/24 21:00 06/13/24 20:15 Melatonin 3 Mg Tablet PO 07/13/24 20:59 3 mg HS STEPAN Administration Meloxicam 7.5 mg 06/13/24 21:00 Meloxicam 7.5 Mg Tablet PO 07/13/24 20:59 DAILY PRN INFLAMMATION Midodrine 5 mg 06/12/24 14:15 Midodrine 5 Mg Tablet PO 07/12/24 14:29 BID PRN SBP <90 Ondansetron HCl 4 mg 06/12/24 14:15 Ondansetron Inj 2 Mg/Ml Inj 2 Ml IV 07/12/24 14:14 Q6H PRN NAUSEA OR VOMITING Protocol Pantoprazole Sodium 40 mg 06/13/24 09:00 06/14/24 09:04 Pantoprazole Inj 40 Mg Vial IVP 07/13/24 08:59 40 mg QDAY STEPAN Administration Plan In summary: 64-year-old female PMHx of HTN, CVA 5 years ago, COVID-pneumonia, osteoporosis presented with shortness of breath and chest pain, admitted for acute decompensated heart failure with possible UTI. Continued on diuresis and ANTIBIOTICS for pneumonia and UTI. Overall symptoms improving. Echocardiogram showed EF 35-40%. Currently pending Frothing Machine Operator with cardiology for tomorrow 06/15. # Acute hypoxic respiratory failure 2/2 # HF exacerbation # Bilateral pleural effusion Exam disorder presents for 2 days with significant chest pressure since then. CXR mild to moderate CHF, vascular congestion, large right pleural effusion and small left pleural effusion Initially on BiPAP, now on 1 L NC, breathing okay although has some orthopnea laying flat. Continued on LASIX, -5.1 L overall Lower extremity edema resolved, lungs are clear Attempt for paracentesis showed insufficient pleural fluid be drained safely. Echocardiogram showed EF 30 to 35%, ventral septal dyssynchrony [id number] of 4, will start PLAVIX after Frothing Machine Operator Pending Frothing Machine Operator with cardiology 06/15/2024 NYHA : Stage C , Class III at baseline ? Decrease LASIX 40 mg IV BID to QDAY for CR elevation ? Started METOPROLOL 100 mg daily for tachycardia ? Fluid restriction 1500 cc ? Salt restriction ? Strict LORENZA's ? Holding HEPARIN for Frothing Machine Operator tomorrow ? Repleted potassium and magnesium ? Will start PLAVIX after Frothing Machine Operator # Severe sepsis 2/2 E. coli UTI ? improving Admission 3/4 SIRS positive with tachycardia, tachypnea and leukocytosis UA positive for UTI, urine grew pansensitive E. coli 24-hour. Repeat blood culture negative Continued on ABX, leukocytosis improving 12.0, tachycardia improving S/p 3 days DOXYCYCLINE (06/12 to 06/14) ? Continue CEFTRIAXONE 1 g daily (06/12 to present) ? Follow-up cultures ? Holding fluids 2/2 CHF exacerbation # Primary hypertension # Hx of CVA 5 years ago Chronic condition Lipid panel normal Blood pressure well-controlled likely due to diuretics Patient complained of headache and intermittent bilateral knee pain, even addressed ? Continue METOPROLOL 100 mg daily ? Daily vitals # Insomnia ? Resumed home GABAPENTIN 100 mg HS ? Started MELATONIN 3 mg p.o. HS # Osteoporosis To be managed outpatient Health maintenance Diet: Cardiac GI prophylaxis: PROTONIX DVT prophylaxis: Holding HEPARIN Antibiotics: DOXYCYCLINE, CEFTRIAXONE CODE STATUS: Full code Disposition: Pending cath and cardio recommendations Patient case was discussed with attending, Dr. Matilde Peguero DO and senior residents Dr. Salomon and Dr. Crane. Merlyn Dupont DO PGYI Attending Provider Attestation/Addendum Zandra, Lissett Peguero DO, attest that I was physically present for the [place] portions of the service and evaluated the patient with the resident and I reviewed and discussed the case with the resident and agree with the resident's findings and plans of care as documented above Patient seen and evaluated this AM. Patient states she is feeling improved. Plan for cardiac cath today. HR improved today and restarted on home dose metoprolol. Discussed echo findings with patient and will need to start goal directed medical therapy. Will f/u with findings from cardiac cath. Continue with IV diuresis at this time. She remains on 2L/NC. TItrate O2 as tolerated. Will continue rocephin for UTI.
[2024-06-14] MEDS: METOPROLOL SUCCINATE XL 25 MG TABCR 100 MG PO (10:27)
[2024-06-14] MEDS: MELATONIN 3 MG TABLET PO (20:33)
[2024-06-14] MEDS: GABAPENTIN 100 MG CAPSULE PO (20:33)
[2024-06-15] VITALS (24 sets, daily range): BP systolic 108–178; BP diastolic 71–117; PULSE 63–100; RESP 12–22; TEMP 35.9–36.7; O2SAT 93–99; BMI 36.3
[2024-06-15] MEDS: ACETAMINOPHEN 325 MG TABLET 650 MG PO ×2 (00:11→09:08)
[2024-06-15 06:04] LABS: Basophils # (Auto) 0.1 Thou/mm3 (0.0-0.2); Basophils % (Auto) 1 % (0-2.5); Eosinophils # (Auto) 0.2 Thou/mm3 (0.0-0.5); Eosinophils % (Auto) 2 % (0-10); Hematocrit 43.1 % (36.0-46.0); Hemoglobin 13.6 g/dL (12.0-16.0); Immature Granulocytes % (Auto) 0 % (0-0); Immature Granulocytes Auto 0.04 Thou/mm3 (0.00-0.00); Lymphocytes # (Auto) 2.6 Thou/mm3 (1.0-4.8); Lymphocytes % (Auto) 24 % (10-50); Mean Corpuscular HGB Conc 31.6 g/dl (31.0-37.0); Mean Corpuscular Hemoglobin 28.3 pg (25.0-35.0); Mean Corpuscular Volume 90 fL (80-100); Monocytes # (Auto) 1.2 Thou/mm3 (0.0-0.8); Monocytes % (Auto) 11 % (0-12); Neutrophils # (Auto) 6.8 Thou/mm3 (1.8-7.7); Neutrophils % (Auto) 62 % (37-80); Nucleated Red Blood Cell % 0 /100 WBC (0); Platelet Count 308 Thou/mm3 (140-440); RDW Standard Deviation 49.8 fL (36.4-46.3); Red Blood Count 4.81 Miln/mm3 (4.00-5.20)
[2024-06-15 06:52] LABS: Alanine Aminotransferase 17 U/L (10-49); Albumin, Serum 4.4 gm/dL (3.4-4.8); Albumin/Globulin Ratio 1.6 (1.2-2.2); Alkaline Phosphatase 91 U/L (46-116); Anion Gap 8 (7-16); Aspartate Amino Transferase 18 U/L (0-34); BUN/Creatinine Ratio 27 Ratio (12-20); Bilirubin,Total 0.3 mg/dL (0.3-1.2); Blood Urea Nitrogen 35 mg/dL (9-23); Calcium 10.4 mg/dL (8.3-10.6); Calcium (Corrected) 10.4 mg/dL (8.5-10.1); Carbon Dioxide 28.2 mMol/L (20.0-31.0); Chloride 101 mMol/L (98-107); Creatinine (Component) 1.3 mg/dL (0.6-1.3); Estimated Creatinine Clearance 37.6 mL/min (>60); Globulin 2.8 gm/dL (2.3-3.5); Glucose 115 mg/dL (74-106); Magnesium 2.4 mg/dL (1.6-2.6); Osmolality,Calculated 282 (275-295); Potassium 4.6 mMol/L (3.4-5.1); Sodium 137 mMol/L (136-145); Total Protein 7.2 gm/dL (5.7-8.2); eGFR 45 See Note
[2024-06-15] MEDS: cefTRIAXone/D5w 1gm IV premix 50 ML IV (09:07)
[2024-06-15] MEDS: METOPROLOL SUCCINATE XL 25 MG TABCR 100 MG PO (09:09)
--- NOTE | 2024-06-15 09:19 | PD.RESPRO ---
Documentation for date of: 06/15/24 Subjective Subjective Interval history: Patient was seen and examined at bedside this morning. Patient had total balance of -1.5L in 24 hours Patient maintained heart rate above 80-90s overnight. Patient's blood pressure again has been elevated throughout the night in the 130s to 140s systolic and 80s to 90s diastolic. Repeat blood cultures on 06/13/2024 are negative preliminary, but blood cultures from 06/12/24 grew E.Coli and possible contamination with Staph epidermidis. Patient states that she is feeling well and has no new complaints at this time. Patient has been NPO since midnight, plan for heart cath this AM. All risks benefits and alternatives of the left and right heart cardiac catheterization have been discussed in detail with the patient including the risk of bleeding, heart attack, stroke and in detail. Patient understands and agreeable for the procedure. Consent obtained from the patient Exam Vital Signs Temp Pulse Resp BP Pulse Ox O2 Del Method O2 Flow Rate 96.9 F 90 21 H 143/87 H 97 Nasal Cannula 1.5 06/15/24 07:46 06/15/24 09:09 06/15/24 07:46 06/15/24 09:09 06/15/24 07:46 06/15/24 07:46 06/15/24 07:46 FiO2 40 06/12/24 19:08 Narrative Exam General: A/O x3, obese on NC Eyes: PERRL, EOMI. Anicteric, vision grossly intact. Ears: No ear pain, no ear discharge, Hearing grossly intact. Nose: No nasal discharge. Mouth/Throat: Dry mucous membranes, no redness, no lesions. Neck: Neck supple, non-tender, no cervical lymphadenopathy. Lungs: Clear JACKSON, No accessory muscle use. Cardio: Normal S1/S2, regular rhythm, 2/6 ejection systolic murmur, no JVD Abdomen: Soft, non-tender, no palpable masses, peristalsis present, no guarding or rebound. Extremities: Symmetrical, no significant deformities, still 1+ peripheral edema , non-tender, peripheral pulses presents. Skin: No rashes, no lesions, warm to touch. Neuro: No focal neurological deficits. motor and sensory intact Psych: Cooperative, appropriate mood and effect. Objective Labs 06/15/24 05:32 06/15/24 05:32 Labs: Laboratory Results - last 24 hr 06/15/24 05:32 WBC 11.0 RBC 4.81 Hgb 13.6 Hct 43.1 MCV 90 MCH 28.3 MCHC 31.6 RDW Std Deviation 49.8 H Plt Count 308 D Neut % (Auto) 62 Lymph % (Auto) 24 [place] % (Auto) 11 Eos % (Auto) 2 Baso % (Auto) 1 Neut # (Auto) 6.8 Lymph # (Auto) 2.6 [place] # (Auto) 1.2 H Eos # (Auto) 0.2 Baso # (Auto) 0.1 Immature Gran # (Auto) 0.04 H Absolute Nucleated RBC 0.00 Immature Gran % 0 Nucleated RBC % 0 Sodium 137 Potassium 4.6 D Chloride 101 Carbon Dioxide 28.2 Anion Gap 8 BUN 35 H Creatinine 1.3 Estim Creat Clear Calc 37.6 L eGFR 45 L BUN/Creatinine Ratio 27 H Glucose 115 H Calculated Osmolality 282 Calcium 10.4 Corrected Calcium 10.4 H Phosphorus 4.0 Magnesium 2.4 Total Bilirubin 0.3 AST 18 ALT 17 Alkaline Phosphatase 91 Total Protein 7.2 Albumin 4.4 Globulin 2.8 Albumin/Globulin Ratio 1.6 ABG Interpretation ABG results: 06/12/24 11:25 ABG pH 7.45 ABG pCO2 34 ABG pO2 135 H ABG HCO3 23 ABG O2 Saturation 98 ABG Base Excess 0 Quality Measures Quality Measures none Advance care planning discussed with:: patient Assessment & Plan Assessment Current Active Medications: Generic Name Dose Route Start Last Admin Trade Name Freq PRN Reason Stop Dose Admin Acetaminophen 650 mg 06/12/24 14:10 06/15/24 09:08 Acetaminophen 325 Mg Tablet PO 07/12/24 14:09 650 mg Q6H PRN Administration Fever >100.3 Furosemide 40 mg 06/15/24 09:00 Furosemide Inj 10 Mg/Ml 4ml Vial IVP 07/15/24 08:59 QDAY STEPAN Gabapentin 100 mg 06/13/24 21:00 06/14/24 20:33 Gabapentin 100 Mg Capsule PO 07/13/24 20:59 100 mg HS STEPAN Administration Ceftriaxone Sodium/Dextrose 50 mls @ 100 mls/hr 06/13/24 09:00 06/15/24 09:07 Rocephin/D5w 1gm Iv Premix IV 06/20/24 08:59 100 mls/hr DAILY STEPAN Administration Melatonin 3 mg 12/02/24 21:00 06/14/24 20:33 Melatonin 3 Mg Tablet PO 07/13/24 20:59 3 mg HS STEPAN Administration Metoprolol Succinate 100 mg 06/14/24 10:15 06/15/24 09:09 Metoprolol Succinate Xl 25 Mg Tabcr PO 07/14/24 10:14 100 mg QDAY STEPAN Administration Ondansetron HCl 4 mg 06/12/24 14:15 Ondansetron Inj 2 Mg/Ml Inj 2 Ml IV 07/12/24 14:14 Q6H PRN NAUSEA OR VOMITING Protocol Pantoprazole Sodium 40 mg 06/13/24 09:00 06/14/24 09:04 Pantoprazole Inj 40 Mg Vial IVP 07/13/24 08:59 40 mg QDAY STEPAN Administration Plan 64-year-old female with past medical history of CVA, hypertension, subdural hematoma in 2022, COVID-pneumonia, osteoporosis, arthritis, bronchitis, nephrolithiasis, and neuropathy was admitted to the hospital on 06/12/2024 for acute hypoxic respiratory failure secondary to acute decompensated heart failure, new onset and hypertensive urgency. 1. Acute decompensated systolic heart failure, new onset (EF 35 to 40%) Non ischemic cardiomyopathy 2. Acute hypoxic respiratory failure 3. Left bundle branch ? new 4. Atypical chest pain 5.Bilateral pleural effusions ?Patient initially presented with shortness of breath requiring her to be placed on BiPAP. ?Patient endorses having some bilateral lower extremity swelling on and off along with some chest pain that comes and goes and sometimes radiates to the back. -She sleeps with one pillow below her head ?Chest x-ray also showed bilateral pleural effusions and moderate CHF. ?EKG showed a new left bundle branch ? BNP on admission was 1048 ?Echo findings were the following: Normal LV size. Severe systolic dysfunction. EF 30-35%. Septal and lateral wall dysynchrony. Cannot determine dystolic function due to AFib. Normal RV size and function. Ascending aorta mildly dilated. 3.6cm. Mild MAC. Mild MR Trace TR. Pleural effusion present. ?Patient had total balance of -1.5 L in 24 hours ?Potassium was 4.6 and magnesium 2.4 this morning -Cardiac catheterization showed following findings. Hemodynamics: Left ventricular pressure 145/2, end diastolic pressure is 12 mmHg, aortic pressure 145/77. No gradient across the aortic valve. Left ventricular angiogram showed evidence of moderate to severe global hypokinesis. Left ventricular ejection fraction 25-30%. Coronary angiogram showed following findings. Right coronary artery large and dominant, appeared normal. PDA and PL branches are normal. Left coronary system: Left main coronary artery is normal. Left anterior descending artery showed mild irregularities. No significant stenosis. Circumflex artery appears normal. Right heart pressures are as follows: Right atrial pressure found to be 4 mmHg, right ventricle pressure is found to be 16/5 mmHg. PA pressure is 16/6 mmHg. Pulmonary artery wedge pressure is 5 mmHg. Plan: ? Recommend continue Lasix 40 mg twice daily for diuresis, goal -2 L in 24 hours ? Recommend to continue metoprolol XL 50 mg daily, aspirin 81 mg once daily, high intensity statin ? Recommend to start goal-directed medical therapy with Entresto and spironolactone if blood pressure permissible -Recommend Lasix 40mg qday upon discharge ? Recommend to aggressively replete potassium and magnesium to keep potassium above 4 and magnesium above 5 ? Strict LORENZA's ? Daily weights ? Fluid restriction 1500 ? 2 g sodium diet 6. Hypertensive urgency ?Initially patient came in with a blood pressure of 161/112 ?Patient did not have any signs of end organ damage ?Morning blood pressure 143/87 Plan: ? Recommend metoprolol XL 50 mg daily ?Would recommend to start patient on Entresto 7. Sepsis likely secondary to community-acquired pneumonia versus UTI versus questionable GNR versus GPC bacteremia 8. GNR/GPC Bacteremia? 9. community-acquired pneumonia 10. UTI ?Initially patient came in meeting SIRS criteria 3 out of 4 with leukocytosis, tachycardia, and tachypnea ? WBC 20.7 on admission down trended to 11 today ? UA was positive for bacteria ? Chest x-ray had some questionable right lower lobe consolidation -Repeat blood cultures on 06/13/2024 are negative preliminary, but blood cultures from 06/12/24 grew E.Coli and possible contamination with Staph epidermidis. ?Patient currently on Rocephin ?Continue current management as per primary care team 11. Hx of subdural hematoma 12. Hx of CVA 13. Hx of osteoporosis 14. Hx of neuropathy ?At home patient takes gabapentin 100 mg at bedtime, cyclobenzaprine 10 mg twice daily, and meloxicam 7.5 mg at bedtime ?Recommend to continue these during her hospital stay ?Recommend patient be on high intensity statin given history of CVA Continue rest of management as per primary team. We are grateful to be able to participate in Mrs. Haywood's care. Thank you for the consult Plan of care discussed with attending Vehicle Upholsterer, Dr Washington Golden MD PGY-1 Attending Provider Attestation/Addendum I have personally seen and examined the patient separately on the above date of service and discussed the plan of care with the resident. I reviewed the resident Dr. Hampton consultation progress note and agree with the resident findings and plan in the note above and have also edited the documentation to reflect my findings and plan. Vikram Delarosa M.D. Interventional Cardiology
[2024-06-15] MEDS: PANTOPRAZOLE INJ 40 MG VIAL IVP (09:31)
--- NOTE | 2024-06-15 11:58 | PC.NURSE ---
The patient was taken to laborer steel handling at 1005
--- NOTE | 2024-06-15 13:54 | ESOP_ITS ---
RE: ALIZE JOSE : 1960 DATE OF OPERATION: 06/15/2024 PROCEDURE PERFORMED: 1. Diagnostic right and left heart cardiac catheterization, selective coronary angiogram, left ventricular angiogram, CPT 83785. 2. Conscious sedation 30 minutes duration. 3. Ultrasound guidance access of the right radial artery. DIAGNOSES: Congestive heart failure, ischemic versus nonischemic cardiomyopathy, recurrent chest pain, and non-ST segment myocardial infarction. HISTORY AND INDICATIONS: The patient is a 64-year-old male with a past medical history of hypertension, coronary artery disease, came to the hospital with severe shortness of breath, congestive heart failure and recurrent chest pain, and mild troponin elevation . Because of acutely decompensated congestive heart failure and new onset left bundle branch block with possible acute non-ST segment elevation myocardial infarction, right and left heart cardiac catheterization and coronary angiogram was recommended to assess for underlying coronary artery disease and also etiology of congestive heart failure. DESCRIPTION OF PROCEDURE: The patient was brought to the cardiac catheterization laboratory. She was given 2 mg of Versed and 75 mcg of fentanyl for sedation. Right radial approach was taken. Right radial artery was cannulated with micropuncture technique with 1% Xylocaine as local anesthesia, 6-Citizen [place] Glidesheath was introduced. Ultrasound guidance was used to cannulate the artery. Right femoral vein was cannulated by micropuncture technique, ultrasound guidance and 7-Citizen [place] sheath was introduced. Right heart catheterization was performed by Roy-Lizzie catheter. Right heart pressure was measured. Left heart catheterization performed by a 5-Citizen [place] TIG-4 diagnostic catheter, LV pressure and pullback pressures were measured. Subsequently, selective right and left coronary angiography performed by TIG-4, 5-Citizen [place] diagnostic catheter. Radial cocktail was given. Hemostasis was secured. TR band was applied and hemostasis was secured subsequently. Venous sheath was also removed. No complications. Estimated blood loss was 0. Cardiac catheterization showed following findings. Hemodynamics: Left ventricular pressure 145/2, end diastolic pressure is 12 mmHg, aortic pressure 145/77. No gradient across the aortic valve. Left ventricular angiogram showed evidence of moderate to severe global hypokinesis. Left ventricular ejection fraction 25- 30%. Coronary angiogram showed following findings. Right coronary artery large and dominant, appeared normal. PDA and PL branches are normal. Left coronary system: Left main coronary artery is normal. Left anterior descending artery showed mild irregularities. No significant stenosis. Circumflex artery appears normal. Right heart pressures are as follows: Right atrial pressure found to be 4 mmHg, right ventricle pressure is found to be 16/5 mmHg. PA pressure is 16/6 mmHg. Pulmonary artery wedge pressure is 5 mmHg. SUMMARY OF FINDINGS: 1. Normal right heart pressures, no evidence of pulmonary hypertension. Heart failure well compensated. 2. Normal left ventricular filling pressures. 3. Non ischemic cardiomyopathy with LVEF 25-30% 4. Normal non obstructive epicardial coronary arteries. RECOMMENDATIONS: The patient's congestive heart failure was well treated. She has nonischemic cardiomyopathy, normal coronary arteries. Reassured about good prognosis. The patient did not have any myocardial infarction or coronary artery disease. I recommend continued maximum medical management, low-dose beta-neil, TEO and ARB and offer maximum medical management. The patient remains symptomatic and low ejection fraction required ICD implantation, most likely CEMENT MIXER defibrillator implantation because of left bundle branch block, right QRS complex to 140 millisecond duration of QRS. cc: Vikram Delarosa MD DT: 12:46:30 TT: 13:51:00 Ref: [id number] - TID: [id number] MTDD
[2024-06-15] MEDS: hydrALAZINE INJ 20 MG/ML VIAL 10 MG IV (14:05)
--- NOTE | 2024-06-15 14:31 | ESPR_ITS ---
<Statement entered by Michael Salomon MD - 06/15/24 19:21> Patient was seen and examined by me personally. I agree with most of the assessment and plan as discussed with the design intern physician, and my attending, Dr. Berger. Patient is s/p cardiac cath, and did not require stent. Plan to start GDMT for HFrEF. Anticipate DC to SNF in 24 hours, as patient lives alone and above 4000 feet, also complaining of weakness. F/U PT eval. Michael Salomon MD, PGY-3 Documentation for date of: 06/15/24 Subjective Subjective Interval history: Acute overnight events. Dyspnea and orthopnea improving. 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 Denies fever, chills, headaches, chest pain, sob, cough, GI or urinary symptoms. Exam Vital Signs Temp Pulse Resp BP Pulse Ox O2 Del Method O2 Flow Rate 98.1 F 95 22 H 132/74 H 96 Nasal Cannula 3 06/15/24 12:39 06/15/24 14:15 06/15/24 14:15 06/15/24 14:15 06/15/24 14:15 06/15/24 14:15 06/15/24 14:15 FiO2 40 06/15/24 13:45 Narrative Exam Constitutional Alert, oriented x3. Obese HEENT Vision grossly intact. Patent nares. Trachea midline. Respiratory Chest normal on inspection and clear to auscultation bilaterally. On 1L NC Cardiovascular S1 and S2 audible, RRR. No murmurs or carotid bruit. No gross JVD. Abdominal Soft and non tender to palpation in all quadrants. BS + Genitourinary No bladder tenderness, no flank pain. Normal to palpation. Musculoskeletal Extremities tone within normal limits. resolved edema of lower extremities Neurological CN II - XII grossly intact. Extremity motor and sensation grossly intact. Skin Warm, dry and intact. No apparent lesions. Psychiatric Patient has a good affect, is cooperative. Objective Labs 06/15/24 05:32 06/16/24 04:30 Labs: Laboratory Results - last 24 hr 06/15/24 05:32 WBC 11.0 RBC 4.81 Hgb 13.6 Hct 43.1 MCV 90 MCH 28.3 MCHC 31.6 RDW Std Deviation 49.8 H Plt Count 308 D Neut % (Auto) 62 Lymph % (Auto) 24 [place] % (Auto) 11 Eos % (Auto) 2 Baso % (Auto) 1 Neut # (Auto) 6.8 Lymph # (Auto) 2.6 [place] # (Auto) 1.2 H Eos # (Auto) 0.2 Baso # (Auto) 0.1 Immature Gran # (Auto) 0.04 H Absolute Nucleated RBC 0.00 Immature Gran % 0 Nucleated RBC % 0 Sodium 137 Potassium 4.6 D Chloride 101 Carbon Dioxide 28.2 Anion Gap 8 BUN 35 H Creatinine 1.3 Estim Creat Clear Calc 37.6 L eGFR 45 L BUN/Creatinine Ratio 27 H Glucose 115 H Calculated Osmolality 282 Calcium 10.4 Corrected Calcium 10.4 H Phosphorus 4.0 Magnesium 2.4 Total Bilirubin 0.3 AST 18 ALT 17 Alkaline Phosphatase 91 Total Protein 7.2 Albumin 4.4 Globulin 2.8 Albumin/Globulin Ratio 1.6 ABG Interpretation ABG results: 06/12/24 11:25 ABG pH 7.45 ABG pCO2 34 ABG pO2 135 H ABG HCO3 23 ABG O2 Saturation 98 ABG Base Excess 0 Quality Measures Quality Measures none Advance care planning discussed with:: patient Assessment & Plan Assessment Current Active Medications: Generic Name Dose Route Start Last Admin Trade Name Freq PRN Reason Stop Dose Admin Acetaminophen 650 mg 06/12/24 14:10 06/15/24 09:08 Acetaminophen 325 Mg Tablet PO 07/12/24 14:09 650 mg Q6H PRN Administration Fever >100.3 Furosemide 40 mg 06/15/24 09:00 Furosemide Inj 10 Mg/Ml 4ml Vial IVP 07/15/24 08:59 QDAY STEPAN Gabapentin 100 mg 06/13/24 21:00 06/14/24 20:33 Gabapentin 100 Mg Capsule PO 07/13/24 20:59 100 mg HS STEPAN Administration Ceftriaxone Sodium/Dextrose 50 mls @ 100 mls/hr 06/13/24 09:00 06/15/24 09:07 Rocephin/D5w 1gm Iv Premix IV 06/20/24 08:59 100 mls/hr DAILY STEPAN Administration Melatonin 3 mg 06/13/24 21:00 06/14/24 20:33 Melatonin 3 Mg Tablet PO 07/13/24 20:59 3 mg HS STEPAN Administration Metoprolol Succinate 100 mg 06/14/24 10:15 06/15/24 09:09 Metoprolol Succinate Xl 25 Mg Tabcr PO 07/14/24 10:14 100 mg QDAY STEPAN Administration Ondansetron HCl 4 mg 06/12/24 14:15 Ondansetron Inj 2 Mg/Ml Inj 2 Ml IV 07/12/24 14:14 Q6H PRN NAUSEA OR VOMITING Protocol Pantoprazole Sodium 40 mg 06/13/24 09:00 06/15/24 09:31 Pantoprazole Inj 40 Mg Vial IVP 07/13/24 08:59 40 mg QDAY STEPAN Administration Plan In summary: 64-year-old female PMHx of HTN, CVA 5 years ago, COVID-pneumonia, osteoporosis presented with shortness of breath and chest pain, admitted for acute decompensated heart failure with possible UTI. Continued on diuresis and ANTIBIOTICS for pneumonia and UTI. Overall symptoms improving. Echocardiogram showed EF 35-40%. Cath done on 06/15: Nonischemic cardiomyopathy, normal coronary arteries, no myocardial infarction or coronary artery disease. We initiated GDMT. Patient will likely discharge tomorrow 06/16. # Acute hypoxic respiratory failure 2/2 # HF exacerbation # Bilateral pleural effusion Exam disorder presents for 2 days with significant chest pressure since then. CXR mild to moderate CHF, vascular congestion, large right pleural effusion and small left pleural effusion Initially on BiPAP, now on 1 L NC, breathing okay although has some orthopnea laying flat. Continued on LASIX, -5.1 L overall Lower extremity edema resolved, lungs are clear Attempt for paracentesis showed insufficient pleural fluid be drained safely. Echocardiogram showed EF 30 to 35%, ventral septal dyssynchrony [id number] of 4, will start PLAVIX after Imaging Science Professor Cath done on 06/15: Nonischemic cardiomyopathy, normal coronary arteries, no myocardial infarction or coronary artery disease NYHA : Stage C , Class III at baseline We started guideline directed medical therapy as below ? Holding LASIX, no signs of fluid overload ? Started DAPAGLIFLOZIN 5 mg p.o. QAM ? Started METOPROLOL 50 mg twice ? Started ENTRESTO 1 tablet p.o. BID ? Started SPIRONOLACTONE 25 mg daily ? Stop METOPROLOL 100 mg daily for tachycardia ? Fluid restriction 1500 cc ? Salt restriction ? Strict LORENZA's ? Repleted potassium and magnesium # Severe sepsis 2/2 E. coli UTI ? improving Admission 3/4 SIRS positive with tachycardia, tachypnea and leukocytosis UA positive for UTI, urine grew pansensitive E. coli 24-hour. Repeat blood culture negative Continued on ABX, leukocytosis improving 12.0, tachycardia improving 48 hours blood culture negative S/p 3 days DOXYCYCLINE (06/12 to 06/14) ? Continue CEFTRIAXONE 1 g daily (06/12 to present) ? Follow-up cultures ? Holding fluids 2/2 CHF exacerbation # Primary hypertension # Hx of CVA 5 years ago Chronic condition Lipid panel normal Blood pressure well-controlled likely due to diuretics Patient complained of headache and intermittent bilateral knee pain, even addressed ? Continue METOPROLOL 50 mg daily ? Daily vitals # Insomnia ? Resumed home GABAPENTIN 100 mg HS ? Started MELATONIN 3 mg p.o. HS # Osteoporosis To be managed outpatient Health maintenance Diet: Cardiac GI prophylaxis: PROTONIX DVT prophylaxis: Holding HEPARIN Antibiotics: DOXYCYCLINE, CEFTRIAXONE CODE STATUS: Full code Disposition: Pending cath and cardio recommendations Patient case was discussed with attending, Dr. Ab CISSE and senior residents Dr. aSlomon and Dr. Crane. Merlyn Dupont DO PGYI Attending Provider Attestation/Addendum I reviewed labs, imaging, EKG, home medications and prior available records. Face to face evaluation was performed by me. I have personally examined the patient and discussed assessment and plan with the IM team. I reviewed the resident note and agree with the plan with exceptions as below. CHF exacerbation: Echocardiogram showed EF of 35 to 40%. Held Lasix due to slight increase in creatinine and cardiac catheterization. Cardiology is following: Plan for cardiac catheterization on 06/15. Sepsis secondary to acute UTI: Continue IV ceftriaxone. Trend WBC and monitor for fevers. Hypertension: Continue metoprolol. Plan to start Entresto prior to discharge. Monitor BP.
--- NOTE | 2024-06-15 14:40 | PC.NURSE ---
FEMORAL SHEATH (VENOUS ACCESS) TO THE RIGHT GROIN AREA REMOVED ABOUT 1428. MANUAL PRESSURE APPLIED FOR ABOUT 10 MINUTES UNTIL HEMOSTASIS ACHIEVED. PATIENT TOLERATED PROCEDURE WELL WITHOUT COMPLICATIONS. SURGICAL SITE ASYMPTOMATIC, NO ACTIVE BLEEDING, NO HEMATOMA NOTED ON RIGHT GROIN AREA. RIGHT FEMORAL PULSE NOTED WITH NO CHANGES IN STRENGHT AND QUALITY (normal upon palpation), NO NOTED CHANGES IN COLOR OR TEMPERATURE ON RIGHT LOWER EXTREMITY. PATIENT DENIES GENERAL AND LOCALIZED PAIN. NO TINGLING OR NUMBNESS FELT TO RIGHT LOWER EXTREMITY. SURGICAL SITE COVERED WITH 4x4 GAUZE AND TAGADERM DRESSING.
[2024-06-15] MEDS: SPIRONOLACTONE 25 MG TABLET PO (15:54)
[2024-06-15] MEDS: DAPAGLIFLOZIN PROPANEDIOL 5 MG TABLET PO (17:30)
[2024-06-15] MEDS: BISMUTH SUBSALICYL 1 TABLET (Pepto-Bismol) 1 TAB PO (18:12)
[2024-06-15] MEDS: METOPROLOL SUCCINATE XL 25 MG TABCR 50 MG PO (21:00)
[2024-06-15] MEDS: SACUBITRIL 24 MG/VALSARTAN 26 MG TABLET 1 TAB PO (21:02)
[2024-06-15] MEDS: MELATONIN 3 MG TABLET PO (21:02)
[2024-06-15] MEDS: GABAPENTIN 100 MG CAPSULE PO (21:02)
[2024-06-16] VITALS (13 sets, daily range): BP systolic 107–163; BP diastolic 82–107; PULSE 79–112; RESP 14–22; TEMP 35.5–36.8; O2SAT 94–99; BMI 13.0
[2024-06-16] MEDS: ACETAMINOPHEN 325 MG TABLET 650 MG PO (04:45)
[2024-06-16] MEDS: BISMUTH SUBSALICYL 1 TABLET (Pepto-Bismol) 1 TAB PO ×2 (04:48→21:33)
[2024-06-16 06:26] LABS: Albumin, Serum 4.4 gm/dL (3.4-4.8); Anion Gap 9 (7-16); BUN/Creatinine Ratio 32 Ratio (12-20); Blood Urea Nitrogen 32 mg/dL (9-23); Calcium 10.1 mg/dL (8.3-10.6); Calcium (Corrected) 10.1 mg/dL (8.5-10.1); Carbon Dioxide 26.2 mMol/L (20.0-31.0); Chloride 103 mMol/L (98-107); Estimated Creatinine Clearance 47.7 mL/min (>60); Glucose 86 mg/dL (74-106); Osmolality,Calculated 281 (275-295); Phosphorous 3.8 mg/dL (2.4-5.1); Potassium 4.1 mMol/L (3.4-5.1); Sodium 138 mMol/L (136-145); eGFR > 60 See Note
[2024-06-16] MEDS: SPIRONOLACTONE 25 MG TABLET PO (08:41)
[2024-06-16] MEDS: DAPAGLIFLOZIN PROPANEDIOL 5 MG TABLET PO (08:41)
--- NOTE | 2024-06-16 08:43 | PC.NURSE ---
Doctor Kiah at bedside. Notified him of pt's BP of 163/107. Hooked up O2 sensor to pt's Tele box. O2 SATS 98%. Pt A&Ox4, no s/s distress or pain. Will con't to monitor for changes.
[2024-06-16] MEDS: cefTRIAXone/D5w 1gm IV premix 50 ML IV (08:45)
--- NOTE | 2024-06-16 09:10 | ESPR_ITS ---
Documentation for date of: 06/16/24 Subjective Subjective Interval history: Patient was seen and examined at bedside this morning. Patient had total balance of -1.9L in 24 hours LHC and RHC pressures showed low PCwp at 5 mm hg. Recommend hold Lasix and then discharge to home on lasix 40 mg daily. Also decrease spirinolactone 12.5 mg po daily. Patient maintained heart rate above 80-90s overnight. Patient's blood pressure again has been elevated again throughout the night in the 150s to 160s systolic and 80s to 90s diastolic, but this am was 108/83 Patient states that she is feeling well and has no new complaints at this time. Cardiac catheterization showed following findings. Hemodynamics: Left ventricular pressure 145/2, end diastolic pressure is 12 mmHg, aortic pressure 145/77. No gradient across the aortic valve. Left ventricular angiogram showed evidence of moderate to severe global hypokinesis. Left ventricular ejection fraction 25- 30%. Coronary angiogram showed following findings. Right coronary artery large and dominant, appeared normal. PDA and PL branches are normal. Left coronary system: Left main coronary artery is normal. Left anterior descending artery showed mild irregularities. No significant stenosis. Circumflex artery appears normal. Right heart pressures are as follows: Right atrial pressure found to be 4 mmHg, right ventricle pressure is found to be 16/5 mmHg. PA pressure is 16/6 mmHg. Pulmonary artery wedge pressure is 5 mmHg. Exam Vital Signs Temp Pulse Resp BP Pulse Ox O2 Del Method O2 Flow Rate 95.9 F L 95 14 108/83 96 Nasal Cannula 1 06/16/24 07:21 06/16/24 08:41 06/16/24 07:21 06/16/24 08:41 06/16/24 07:21 06/16/24 07:21 06/16/24 07:21 FiO2 40 06/16/24 07:21 Narrative Exam General: A/O x3, obese on NC Eyes: PERRL, EOMI. Anicteric, vision grossly intact. Ears: No ear pain, no ear discharge, Hearing grossly intact. Nose: No nasal discharge. Mouth/Throat: Dry mucous membranes, no redness, no lesions. Neck: Neck supple, non-tender, no cervical lymphadenopathy. Lungs: Clear JACKSON, No accessory muscle use. Cardio: Normal S1/S2, regular rhythm, 2/6 ejection systolic murmur, no JVD Abdomen: Soft, non-tender, no palpable masses, peristalsis present, no guarding or rebound. Extremities: Symmetrical, no significant deformities, still 1+ peripheral edema , non-tender, peripheral pulses presents. Skin: No rashes, no lesions, warm to touch. Neuro: No focal neurological deficits. motor and sensory intact Psych: Cooperative, appropriate mood and effect. Objective Labs 06/15/24 05:32 06/16/24 04:30 Labs: Laboratory Results - last 24 hr 06/16/24 04:30 Sodium 138 Potassium 4.1 D Chloride 103 Carbon Dioxide 26.2 Anion Gap 9 BUN 32 H Creatinine 1.0 Estim Creat Clear Calc 47.7 L eGFR > 60 BUN/Creatinine Ratio 32 H Glucose 86 Calculated Osmolality 281 Calcium 10.1 Corrected Calcium 10.1 Phosphorus 3.8 Albumin 4.4 ABG Interpretation ABG results: 06/12/24 11:25 ABG pH 7.45 ABG pCO2 34 ABG pO2 135 H ABG HCO3 23 ABG O2 Saturation 98 ABG Base Excess 0 Quality Measures Quality Measures none Advance care planning discussed with:: patient Assessment & Plan Assessment Current Active Medications: Generic Name Dose Route Start Last Admin Trade Name Freq PRN Reason Stop Dose Admin Acetaminophen 650 mg 06/12/24 14:10 06/16/24 04:45 Acetaminophen 325 Mg Tablet PO 07/12/24 14:09 650 mg Q6H PRN Administration Fever >100.3 Bismuth Subsalicylate 1 tab 06/15/24 16:15 06/16/24 04:48 Bismuth Subsalicyl 1 Tablet (Pepto-Bismol) PO 07/15/24 16:14 1 tab Q1HR PRN Administration UPSET STOMACH/INDIGESTION Dapagliflozin 5 mg 06/15/24 15:00 06/16/24 08:41 Dapagliflozin Propanediol 5 Mg Tablet PO 07/15/24 14:59 5 mg QAM STEPAN Administration Furosemide 40 mg 06/15/24 09:00 Furosemide Inj 10 Mg/Ml 4ml Vial IVP 07/15/24 08:59 QDAY STEPAN Gabapentin 100 mg 06/13/24 21:00 06/15/24 21:02 Gabapentin 100 Mg Capsule PO 07/13/24 20:59 100 mg HS STEPAN Administration Ceftriaxone Sodium/Dextrose 50 mls @ 100 mls/hr 06/13/24 09:00 06/16/24 08:45 Rocephin/D5w 1gm Iv Premix IV 06/20/24 08:59 100 mls/hr DAILY STEPAN Administration Melatonin 3 mg 06/13/24 21:00 06/15/24 21:02 Melatonin 3 Mg Tablet PO 07/13/24 20:59 3 mg HS STEPAN Administration Metoprolol Succinate 50 mg 06/15/24 21:00 06/15/24 21:00 Metoprolol Succinate Xl 25 Mg Tabcr PO 07/15/24 20:59 50 mg HS STEPAN Administration Ondansetron HCl 4 mg 06/12/24 14:15 Ondansetron Inj 2 Mg/Ml Inj 2 Ml IV 07/12/24 14:14 Q6H PRN NAUSEA OR VOMITING Protocol Pantoprazole Sodium 40 mg 06/13/24 09:00 06/16/24 09:00 Pantoprazole Inj 40 Mg Vial IVP 07/13/24 08:59 Not Given QDAY STEPAN Sacubitril/Valsartan 1 tab 06/15/24 21:00 06/16/24 08:45 Sacubitril 24 Mg/Valsartan 26 Mg Tablet PO 07/15/24 20:59 Not Given BID STEPAN Spironolactone 25 mg 06/16/24 09:00 06/16/24 08:41 Spironolactone 25 Mg Tablet PO 07/16/24 08:59 25 mg QDAY STEPAN Administration Plan 64-year-old female with past medical history of CVA, hypertension, subdural hematoma in 2022, COVID-pneumonia, osteoporosis, arthritis, bronchitis, nephrolithiasis, and neuropathy was admitted to the hospital on 06/12/2024 for acute hypoxic respiratory failure secondary to acute decompensated heart failure, new onset and hypertensive urgency. 1. Acute decompensated systolic heart failure, new onset (EF 35 to 40%) Non ischemic cardiomyopathy 2. Acute hypoxic respiratory failure 3. Left bundle branch ? new 4. Atypical chest pain 5.Bilateral pleural effusions ?Patient initially presented with shortness of breath requiring her to be placed on BiPAP. ?Patient endorses having some bilateral lower extremity swelling on and off along with some chest pain that comes and goes and sometimes radiates to the back. -She sleeps with one pillow below her head ?Chest x-ray also showed bilateral pleural effusions and moderate CHF. ?EKG showed a new left bundle branch ? BNP on admission was 1048 ?Echo findings were the following: Normal LV size. Severe systolic dysfunction. EF 30-35%. Septal and lateral wall dysynchrony. Cannot determine dystolic function due to AFib. Normal RV size and function. Ascending aorta mildly dilated. 3.6cm. Mild MAC. Mild MR Trace TR. Pleural effusion present. ?Patient had total balance of -1.9 L in 24 hours ?Potassium was 4.1 and magnesium not ordered this am -Cardiac catheterization showed following findings. Hemodynamics: Left ventricular pressure 145/2, end diastolic pressure is 12 mmHg, aortic pressure 145/77. No gradient across the aortic valve. Left ventricular angiogram showed evidence of moderate to severe global hypokinesis. Left ventricular ejection fraction 25- 30%. Coronary angiogram showed following findings. Right coronary artery large and dominant, appeared normal. PDA and PL branches are normal. Left coronary system: Left main coronary artery is normal. Left anterior descending artery showed mild irregularities. No significant stenosis. Circumflex artery appears normal. Right heart pressures are as follows: Right atrial pressure found to be 4 mmHg, right ventricle pressure is found to be 16/5 mmHg. PA pressure is 16/6 mmHg. Pulmonary artery wedge pressure is 5 mmHg. Plan: ? Recommend hold Lasix 40 mg daily for 2 days then continue again ? Recommend to continue metoprolol XL 50 mg daily, aspirin 81 mg once daily, high intensity statin ? Recommend to start goal-directed medical therapy with Entresto and spironolactone 12.5 mg if blood pressure permissible - LHC and RHC pressures showed low PCwp at 5 mm hg. - Recommend hold Lasix and then discharge to home on lasix 40 mg daily. - Also decrease spirinolactone 12.5 mg po daily. -Please get a BMP and Mg levels before F/U with me in my office. ? Recommend to aggressively replete potassium and magnesium to keep potassium above 4 and magnesium above 5 ? Strict LORENZA's ? Daily weights ? Fluid restriction 1500 ? 2 g sodium diet 6. Hypertensive urgency ?Initially patient came in with a blood pressure of 161/112 ?Patient did not have any signs of end organ damage ?Morning blood pressure 108/83 Plan: ? Recommend metoprolol XL 50 mg daily ?Would recommend to start patient on Entresto 7. Sepsis likely secondary to community-acquired pneumonia versus UTI versus questionable GNR versus GPC bacteremia 8. GNR/GPC Bacteremia? 9. community-acquired pneumonia 10. UTI ?Initially patient came in meeting SIRS criteria 3 out of 4 with leukocytosis, tachycardia, and tachypnea ? WBC 20.7 on admission down trended to 11 yesterday. ? UA was positive for bacteria ? Chest x-ray had some questionable right lower lobe consolidation -Repeat blood cultures on 06/13/2024 are negative preliminary, but blood cultures from 06/12/24 grew E.Coli and possible contamination with Staph epidermidis. ?Patient currently on Rocephin ?Continue current management as per primary care team 11. Hx of subdural hematoma 12. Hx of CVA 13. Hx of osteoporosis 14. Hx of neuropathy ?At home patient takes gabapentin 100 mg at bedtime, cyclobenzaprine 10 mg twice daily, and meloxicam 7.5 mg at bedtime ?Recommend to continue these during her hospital stay ?Recommend patient be on high intensity statin given history of CVA Continue rest of management as per primary team. We are grateful to be able to participate in Mrs. Haywood's care. Thank you for the consult Plan of care discussed with attending [employer], Dr Washington Golden MD PGY-1 Attending Provider Attestation/Addendum I reviewed the resident Dr. Hampton consultation progress note and agree with the resident findings and plan in the note above and have also edited the documentation to reflect my findings and plan. Vikram Delarosa M.D. Interventional Cardiology
--- NOTE | 2024-06-16 09:49 | ESPR_ITS ---
<Statement entered by Robert Crane MD - 06/16/24 18:05> Documentation for date of: 06/16/24 Subjective Subjective Interval history: No acute overnight events. Oxygen demand decreased substantially. Patient ambulating with walker without shortness of breath. Tolerating oral intake without nausea or vomiting. Denies fever, chills, headaches, chest pain, sob, cough, GI or urinary symptoms. Exam Vital Signs Temp Pulse Resp BP Pulse Ox O2 Del Method O2 Flow Rate 95.9 F L 95 14 108/83 96 Nasal Cannula 1 06/16/24 07:21 06/16/24 08:41 06/16/24 07:21 06/16/24 08:41 06/16/24 07:21 06/16/24 07:21 06/16/24 07:21 FiO2 40 06/16/24 07:21 Narrative Exam Constitutional Alert, oriented x3. Obese HEENT Vision grossly intact. Patent nares. Trachea midline. Respiratory Chest normal on inspection and clear to auscultation bilaterally. On 1L NC Cardiovascular S1 and S2 audible, RRR. No murmurs or carotid bruit. No gross JVD. Abdominal Soft and non tender to palpation in all quadrants. BS + Genitourinary No bladder tenderness, no flank pain. Normal to palpation. Musculoskeletal Extremities tone within normal limits. resolved edema of lower extremities Neurological CN II - XII grossly intact. Extremity motor and sensation grossly intact. Skin Warm, dry and intact. No apparent lesions. Psychiatric Patient has a good affect, is cooperative. Objective Labs 06/15/24 05:32 06/16/24 04:30 Labs: Laboratory Results - last 24 hr 06/16/24 04:30 Sodium 138 Potassium 4.1 D Chloride 103 Carbon Dioxide 26.2 Anion Gap 9 BUN 32 H Creatinine 1.0 Estim Creat Clear Calc 47.7 L eGFR > 60 BUN/Creatinine Ratio 32 H Glucose 86 Calculated Osmolality 281 Calcium 10.1 Corrected Calcium 10.1 Phosphorus 3.8 Albumin 4.4 ABG Interpretation ABG results: 06/12/24 11:25 ABG pH 7.45 ABG pCO2 34 ABG pO2 135 H ABG HCO3 23 ABG O2 Saturation 98 ABG Base Excess 0 Quality Measures Quality Measures none Advance care planning discussed with:: patient Assessment & Plan Assessment Current Active Medications: Generic Name Dose Route Start Last Admin Trade Name Freq PRN Reason Stop Dose Admin Acetaminophen 650 mg 12/01/24 14:10 06/16/24 04:45 Acetaminophen 325 Mg Tablet PO 07/12/24 14:09 650 mg Q6H PRN Administration Fever >100.3 Bismuth Subsalicylate 1 tab 06/15/24 16:15 06/16/24 04:48 Bismuth Subsalicyl 1 Tablet (Pepto-Bismol) PO 07/15/24 16:14 1 tab Q1HR PRN Administration UPSET STOMACH/INDIGESTION Dapagliflozin 5 mg 06/15/24 15:00 06/16/24 08:41 Dapagliflozin Propanediol 5 Mg Tablet PO 07/15/24 14:59 5 mg QAM STEPAN Administration Furosemide 40 mg 06/15/24 09:00 Furosemide Inj 10 Mg/Ml 4ml Vial IVP 07/15/24 08:59 QDAY STEPAN Gabapentin 100 mg 06/13/24 21:00 06/15/24 21:02 Gabapentin 100 Mg Capsule PO 07/13/24 20:59 100 mg HS STEPAN Administration Ceftriaxone Sodium/Dextrose 50 mls @ 100 mls/hr 06/13/24 09:00 06/16/24 08:45 Rocephin/D5w 1gm Iv Premix IV 06/20/24 08:59 100 mls/hr DAILY STEPAN Administration Melatonin 3 mg 06/13/24 21:00 06/15/24 21:02 Melatonin 3 Mg Tablet PO 07/13/24 20:59 3 mg HS STEPAN Administration Metoprolol Succinate 50 mg 06/15/24 21:00 06/15/24 21:00 Metoprolol Succinate Xl 25 Mg Tabcr PO 07/15/24 20:59 50 mg HS STEPAN Administration Ondansetron HCl 4 mg 06/12/24 14:15 Ondansetron Inj 2 Mg/Ml Inj 2 Ml IV 07/12/24 14:14 Q6H PRN NAUSEA OR VOMITING Protocol Pantoprazole Sodium 40 mg 06/13/24 09:00 06/16/24 09:00 Pantoprazole Inj 40 Mg Vial IVP 07/13/24 08:59 Not Given QDAY STEPAN Sacubitril/Valsartan 1 tab 06/15/24 21:00 06/16/24 08:45 Sacubitril 24 Mg/Valsartan 26 Mg Tablet PO 07/15/24 20:59 Not Given BID STEPAN Spironolactone 25 mg 06/16/24 09:00 06/16/24 08:41 Spironolactone 25 Mg Tablet PO 07/16/24 08:59 25 mg QDAY STEPAN Administration Plan In summary: 64-year-old female PMHx of HTN, CVA 5 years ago, COVID-pneumonia, osteoporosis presented with shortness of breath and chest pain, admitted for acute decompensated heart failure with possible UTI. Continued on diuresis and ANTIBIOTICS for pneumonia and UTI. Overall symptoms improving. Echocardiogram showed EF 35-40%. Cath done on 06/15: Nonischemic cardiomyopathy, normal coronary arteries, no myocardial infarction or coronary artery disease. We initiated GDMT. Cardiology recommended stopping loop DIURETIC, continue GDMT. Currently pending SNF placement. Patient will discharge on home oxygen. # Acute hypoxic respiratory failure 2/2 # HF exacerbation # Bilateral pleural effusion Exam disorder presents for 2 days with significant chest pressure since then. CXR mild to moderate CHF, vascular congestion, large right pleural effusion and small left pleural effusion Initially on BiPAP, now on 1 L NC, breathing okay although has some orthopnea laying flat. Continued on LASIX, -5.1 L overall Lower extremity edema resolved, lungs are clear Attempt for paracentesis showed insufficient pleural fluid be drained safely. Echocardiogram showed EF 30 to 35%, ventral septal dyssynchrony [id number] of 4, HAS-BLED 4, hx of CVA per patient, PLAVIX contraindicated Cardiology recommended ASA and STATIN, will continue will start PLAVIX after Post Form Remover Cath done on 06/15: Nonischemic cardiomyopathy, normal coronary arteries, no myocardial infarction or coronary artery disease NYHA : Stage C , Class III at baseline We started guideline directed medical therapy as below ? Stopped LASIX, cardiology recommendations ? Continue DAPAGLIFLOZIN 5 mg p.o. QAM ? Continue METOPROLOL 50 mg twice ? Continue ASPIRIN 81 mg daily ? Continue ATORVASTATIN 80 mg daily HS ? Continue ENTRESTO 1 tablet p.o. BID ? Continue SPIRONOLACTONE 25 mg daily ? Stop METOPROLOL 100 mg daily for tachycardia ? Fluid restriction 1500 cc ? Salt restriction ? Strict LORENZA's ? Repleted potassium and magnesium # Severe sepsis 2/2 E. coli UTI ? improving Admission 3/4 SIRS positive with tachycardia, tachypnea and leukocytosis UA positive for UTI, urine grew pansensitive E. coli 24-hour. Repeat blood culture negative Continued on ABX, leukocytosis improving 12.0, tachycardia improving 48 hours blood culture negative S/p 3 days DOXYCYCLINE (06/12 to 06/14) ? Discontinued CEFTRIAXONE 1 g daily (06/12 to 06/16) ? Started KEFLEX for 2 more days (06/16 to 06/18) ? Follow-up cultures ? Holding fluids 2/2 CHF exacerbation # Primary hypertension # Hx of CVA 5 years ago Chronic condition Lipid panel normal Blood pressure well-controlled likely due to diuretics Patient complained of headache and intermittent bilateral knee pain, even addressed ? Continue METOPROLOL 50 mg daily ? Continue ENTRESTO as above ? Daily vitals # Insomnia ? Resumed home GABAPENTIN 100 mg HS ? Started MELATONIN 3 mg p.o. HS # Osteoporosis To be managed outpatient Health maintenance Diet: Cardiac GI prophylaxis: PROTONIX DVT prophylaxis: Holding HEPARIN Antibiotics: DOXYCYCLINE, CEFTRIAXONE CODE STATUS: Full code Disposition: Pending cath and cardio recommendations Patient case was discussed with attending, Dr. Ab CISSE and senior residents Dr. Salomon and Dr. Crane. Merlyn Dupont, DO PGYI L Ms Haywood is s/p diuresis and cardiac cath w/o stenting, on this admission. She is on full goal directed medical therapy for HFrEF as per cardiology recommendations. Anticipate DC to SNF in 24 hours, as patient lives alone and above 4000 feet. PT evaluation completed. Pending insurance authorization at this time for SNF. Patient examined and case discussed with the team including attending physician. Note reviewed, I agree with the care plan as documented. - Robert Crane MD, PGY 2 Attending Provider Attestation/Addendum I reviewed labs, imaging, EKG, home medications and prior available records. Face to face evaluation was performed by me. I have personally examined the patient and discussed assessment and plan with the IM team. I reviewed the resident note and agree with the plan with exceptions as below. CHF exacerbation: Echocardiogram showed EF of 35 to 40%. Cardiology is following: Status post cardiac catheterization on 06/15 that showed nonobstructive CAD and EF of 25 to 30%. Resume Lasix 40 mg daily on 06/20. Sepsis secondary to acute UTI: Will switch to p.o. Keflex. Hypertension: Continue metoprolol. Started Entresto prior to discharge. Monitor BP. Social problem: She is pending SNF placement as [place] by herself [place]. Discussed with mental health social worker who is working on the case.
--- NOTE | 2024-06-16 10:55 | PC.SS ---
Addendum entered by Virginia Freeman 06/16/24 11:35: SS followed up with PT and they state patient ambulated over 200 feet. SS explained to patient SNF may not be covered due to how many feet she ambulated. PT states she did not ambulate with 02. SS explained to patient to start thinking of an alternate plan if insurance denies request. Patient's cousin at bedside and lives local states he will assist patient if she cannot d/c to SNF. Original Note: Follow up note: SS met with patient who states she lives alone. She doesn't feel comfortable going back home. Patient prefers SNF short term. She will need new home 02 and may need PT. PT eval pending.
[2024-06-16] MEDS: ASPIRIN EC 81 MG TABEC PO (10:56)
[2024-06-16] MEDS: CYCLObenzaPRINE 5 MG TABLET 10 MG PO (21:24)
[2024-06-16] MEDS: SACUBITRIL 24 MG/VALSARTAN 26 MG TABLET 1 TAB PO (21:25)
[2024-06-16] MEDS: MELATONIN 3 MG TABLET PO (21:25)
[2024-06-16] MEDS: GABAPENTIN 100 MG CAPSULE PO (21:25)
[2024-06-16] MEDS: METOPROLOL SUCCINATE XL 25 MG TABCR 50 MG PO (21:25)
[2024-06-16] MEDS: NORTRIPTYLINE HCL 25 MG CAPSULE 100 MG PO (21:40)
[2024-06-17] VITALS (9 sets, daily range): BP systolic 101–154; BP diastolic 69–73; PULSE 58–113; RESP 17–18; TEMP 36.1–36.6; O2SAT 95–100; BMI 13.0
[2024-06-17] MEDS: cephALEXin 250 MG CAPSULE 500 MG PO (08:15)
[2024-06-17] MEDS: SACUBITRIL 24 MG/VALSARTAN 26 MG TABLET 1 TAB PO (08:15)
[2024-06-17] MEDS: DAPAGLIFLOZIN PROPANEDIOL 5 MG TABLET PO (08:15)
[2024-06-17] MEDS: CYCLObenzaPRINE 5 MG TABLET 10 MG PO (08:15)
[2024-06-17] MEDS: ASPIRIN EC 81 MG TABEC PO (08:16)
--- NOTE | 2024-06-17 08:33 | ESPR_ITS ---
<Statement entered by Regino Lanza MD - 06/17/24 19:16> I personally examined the patient with resident physician PGY 1 Dr. Hampton patient is has nonischemic cardiomyopathy left bundle branch block low ejection fraction clinically improved but she is very weak and tired not able to ambulate well awaiting physical therapy rehabilitation transferred to senior care facility. I agree with the treatment plan recommendation as documented maximal guideline directed medical management for heart failure including low-dose beta- neil Entresto and spironolactone no need for any Lasix since her wedge pressures are quite low well treated heart failure. Documentation for date of: 06/17/24 Subjective Subjective Interval history: Patient was seen and examined at bedside this morning. Patient had total balance of +470 mL in 24 hours LHC and RHC pressures showed low PCwp at 5 mm hg. Recommend hold Lasix and then discharge to home on lasix 40 mg daily. Also continue low dose spirinolactone 12.5 mg po daily. Patient maintained heart rate above 90-100s overnight. Patient's blood pressure better controlled now, BP 112/72 this am. Patient states that she is feeling well and has no new complaints at this time. Patient would benefit from SNF Cardiac catheterization showed following findings. Hemodynamics: Left ventricular pressure 145/2, end diastolic pressure is 12 mmHg, aortic pressure 145/77. No gradient across the aortic valve. Left ventricular angiogram showed evidence of moderate to severe global hypokinesis. Left ventricular ejection fraction 25- 30%. Coronary angiogram showed following findings. Right coronary artery large and dominant, appeared normal. PDA and PL branches are normal. Left coronary system: Left main coronary artery is normal. Left anterior descending artery showed mild irregularities. No significant stenosis. Circumflex artery appears normal. Right heart pressures are as follows: Right atrial pressure found to be 4 mmHg, right ventricle pressure is found to be 16/5 mmHg. PA pressure is 16/6 mmHg. Pulmonary artery wedge pressure is 5 mmHg. Exam Vital Signs Temp Pulse Resp BP Pulse Ox O2 Del Method O2 Flow Rate 97.0 F 81 17 112/72 95 Room Air 1 06/17/24 07:43 06/17/24 07:43 06/17/24 07:43 06/17/24 07:43 06/17/24 07:43 06/17/24 07:43 06/17/24 07:43 FiO2 40 06/17/24 07:43 Narrative Exam General: A/O x3, obese on NC Eyes: PERRL, EOMI. Anicteric, vision grossly intact. Ears: No ear pain, no ear discharge, Hearing grossly intact. Nose: No nasal discharge. Mouth/Throat: Dry mucous membranes, no redness, no lesions. Neck: Neck supple, non-tender, no cervical lymphadenopathy. Lungs: Clear JACKSON, No accessory muscle use. Cardio: Normal S1/S2, regular rhythm, 2/6 ejection systolic murmur, no JVD Abdomen: Soft, non-tender, no palpable masses, peristalsis present, no guarding or rebound. Extremities: Symmetrical, no significant deformities, no peripheral edema , non- tender, peripheral pulses presents. Skin: No rashes, no lesions, warm to touch. Neuro: No focal neurological deficits. motor and sensory intact Psych: Cooperative, appropriate mood and effect. Objective Labs 06/15/24 05:32 06/16/24 04:30 ABG Interpretation ABG results: 06/12/24 11:25 ABG pH 7.45 ABG pCO2 34 ABG pO2 135 H ABG HCO3 23 ABG O2 Saturation 98 ABG Base Excess 0 Quality Measures Quality Measures none Advance care planning discussed with:: patient Assessment & Plan Assessment Current Active Medications: Generic Name Dose Route Start Last Admin Trade Name Freq PRN Reason Stop Dose Admin Acetaminophen 650 mg 06/12/24 14:10 06/16/24 04:45 Acetaminophen 325 Mg Tablet PO 07/12/24 14:09 650 mg Q6H PRN Administration Fever >100.3 Aspirin 81 mg 06/16/24 10:45 06/17/24 08:16 Aspirin Ec 81 Mg Tabec PO 07/16/24 10:44 81 mg QDAY STEPAN Administration Atorvastatin Calcium 80 mg 06/16/24 21:00 06/16/24 21:28 Atorvastatin Calcium 20 Mg Tablet PO 07/16/24 20:59 Not Given HS STEPAN Bismuth Subsalicylate 1 tab 06/15/24 16:15 06/16/24 21:33 Bismuth Subsalicyl 1 Tablet (Pepto-Bismol) PO 07/15/24 16:14 1 tab Q1HR PRN Administration UPSET STOMACH/INDIGESTION Cephalexin HCl 500 mg 06/17/24 09:00 06/17/24 08:15 Cephalexin 250 Mg Capsule PO 06/19/24 08:59 500 mg BID STEPAN Administration Cyclobenzaprine HCl 10 mg 06/16/24 21:00 06/17/24 08:15 Cyclobenzaprine 5 Mg Tablet PO 07/16/24 20:59 10 mg BID STEPAN Administration Dapagliflozin 5 mg 06/15/24 15:00 06/17/24 08:15 Dapagliflozin Propanediol 5 Mg Tablet PO 07/15/24 14:59 5 mg QAM STEPAN Administration Furosemide 40 mg 06/20/24 08:00 Furosemide 40 Mg Tablet PO 07/20/24 07:59 QDAY STEPAN Gabapentin 100 mg 06/13/24 21:00 06/16/24 21:25 Gabapentin 100 Mg Capsule PO 07/13/24 20:59 100 mg HS STEPAN Administration Melatonin 3 mg 06/13/24 21:00 06/16/24 21:25 Melatonin 3 Mg Tablet PO 07/13/24 20:59 3 mg HS STEPAN Administration Metoprolol Succinate 50 mg 06/15/24 21:00 06/16/24 21:25 Metoprolol Succinate Xl 25 Mg Tabcr PO 07/15/24 20:59 50 mg HS STEPAN Administration Non-Formulary Medication 10 gm 06/17/24 09:00 06/17/24 08:16 Sodium Zirconium Cyclosilicate [Lokelma] PO 07/17/24 08:59 Not Given DAILY STEPAN Nortriptyline HCl 100 mg 06/16/24 21:00 06/16/24 21:40 Nortriptyline Hcl 25 Mg Capsule PO 07/16/24 20:59 100 mg HS STEPAN Administration Ondansetron HCl 4 mg 06/12/24 14:15 Ondansetron Inj 2 Mg/Ml Inj 2 Ml IV 07/12/24 14:14 Q6H PRN NAUSEA OR VOMITING Protocol Pantoprazole Sodium 40 mg 06/13/24 09:00 06/17/24 08:10 Pantoprazole Inj 40 Mg Vial IVP 07/13/24 08:59 Not Given QDAY STEPAN Sacubitril/Valsartan 1 tab 06/15/24 21:00 06/17/24 08:15 Sacubitril 24 Mg/Valsartan 26 Mg Tablet PO 07/15/24 20:59 1 tab BID STEPAN Administration Spironolactone 12.5 mg 06/19/24 09:00 Spironolactone 25 Mg Tablet PO 07/19/24 08:59 QDAY [facility] Vitamin D 2,000 iu 06/23/24 09:00 Cholecalciferol (Vitamin D3) 1,000 Iu Tablet PO 07/23/24 08:59 QWEEK [facility] Plan 64-year-old female with past medical history of CVA, hypertension, subdural hematoma in 2022, COVID-pneumonia, osteoporosis, arthritis, bronchitis, nephrolithiasis, and neuropathy was admitted to the hospital on 06/12/2024 for acute hypoxic respiratory failure secondary to acute decompensated heart failure, new onset and hypertensive urgency. 1. Acute decompensated systolic heart failure, new onset (EF 35 to 40%) Non ischemic cardiomyopathy 2. Acute hypoxic respiratory failure 3. Left bundle branch ? new 4. Atypical chest pain 5.Bilateral pleural effusions ?Patient initially presented with shortness of breath requiring her to be placed on BiPAP. ?Patient endorses having some bilateral lower extremity swelling on and off along with some chest pain that comes and goes and sometimes radiates to the back. -She sleeps with one pillow below her head ?Chest x-ray also showed bilateral pleural effusions and moderate CHF. ?EKG showed a new left bundle branch ? BNP on admission was 1048 ?Echo findings were the following: Normal LV size. Severe systolic dysfunction. EF 30-35%. Septal and lateral wall dysynchrony. Cannot determine dystolic function due to AFib. Normal RV size and function. Ascending aorta mildly dilated. 3.6cm. Mild MAC. Mild MR Trace TR. Pleural effusion present. ?Patient had total balance of +470 mL in 24 hours ?Potassium was 4.1 yesterday and magnesium no labs today -Cardiac catheterization showed following findings. Hemodynamics: Left ventricular pressure 145/2, end diastolic pressure is 12 mmHg, aortic pressure 145/77. No gradient across the aortic valve. Left ventricular angiogram showed evidence of moderate to severe global hypokinesis. Left ventricular ejection fraction 25- 30%. Coronary angiogram showed following findings. Right coronary artery large and dominant, appeared normal. PDA and PL branches are normal. Left coronary system: Left main coronary artery is normal. Left anterior descending artery showed mild irregularities. No significant stenosis. Circumflex artery appears normal. Right heart pressures are as follows: Right atrial pressure found to be 4 mmHg, right ventricle pressure is found to be 16/5 mmHg. PA pressure is 16/6 mmHg. Pulmonary artery wedge pressure is 5 mmHg. Plan: ? Recommend hold Lasix and then discharge to home on lasix 40 mg daily. ? Recommend to continue metoprolol XL 50 mg daily, aspirin 81 mg once daily, high intensity statin ? Recommend to start goal-directed medical therapy with Entresto and spironolactone 12.5 mg if blood pressure permissible - LHC and RHC pressures showed low PCwp at 5 mm hg.. -Please get a BMP and Mg levels before F/U with me in my office. ? Recommend to aggressively replete potassium and magnesium to keep potassium above 4 and magnesium above 5 ? Strict LORENZA's ? Daily weights ? Fluid restriction 1500 ? 2 g sodium diet 6. Hypertensive urgency ?Initially patient came in with a blood pressure of 161/112 ?Patient did not have any signs of end organ damage ?Morning blood pressure 112/72 Plan: ? Recommend metoprolol XL 50 mg daily ?Continue Entresto 7. Sepsis likely secondary to community-acquired pneumonia versus UTI versus questionable GNR versus GPC bacteremia 8. GNR/GPC Bacteremia? 9. community-acquired pneumonia 10. UTI ?Initially patient came in meeting SIRS criteria 3 out of 4 with leukocytosis, tachycardia, and tachypnea ? WBC 20.7 on admission down trended to 11 yesterday. ? UA was positive for bacteria ? Chest x-ray had some questionable right lower lobe consolidation -Repeat blood cultures on 06/13/2024 are negative, but blood cultures from 06/12/24 grew E.Coli and possible contamination with Staph epidermidis. ?Patient currently on Rocephin ?Continue current management as per primary care team 11. Hx of subdural hematoma 12. Hx of CVA 13. Hx of osteoporosis 14. Hx of neuropathy ?At home patient takes gabapentin 100 mg at bedtime, cyclobenzaprine 10 mg twice daily, and meloxicam 7.5 mg at bedtime ?Recommend to continue these during her hospital stay ?Recommend patient be on high intensity statin given history of CVA Continue rest of management as per primary team. We are grateful to be able to participate in Mrs. Haywood's care. Thank you for the consult Plan of care discussed with attending Arabic Teacher, Dr. Pool Golden MD PGY-1
[2024-06-17] MEDS: VIT B12/Vit C/FA (Nephrovite) TABLET 1 TAB PO (10:49)
--- NOTE | 2024-06-17 11:46 | PC.SS ---
Addendum entered by Virginia Freeman 06/17/24 15:30: SS spoke to human services case manager , Aliyah @ [phone] xt [phone] and she will review 2nd PT note and speak with her physician. SS updated that our physician is willing to also have a peer:peer conversation. SS already discussed with patient an update as well as discussion of IMM rights . No d/c orders in yet Addendum entered by Virginia Freeman 06/17/24 15:00: SS spoke to [facility] and they stated based on patient's initial PT eval they declined SNF auth and will only agree to home health services. SS requested to speak with case management as home health is not available where patient resides. Patient worked with PT again today and only ambulated 40 feet and was dizzy. SS submitted this documentation to [employer] for further review. SS waiting on a call from [employer]. with update. Original Note: Follow up note: SS followed up with patient on d/c plans/options. Patient is pending authorization for SNF short term. She lives alone in the [facility]. She is concerned about going home alone. She feels sob in higher altitudes. SS already submitted for request for SNF. Pending review. SS received a call from [facility] who states they are contracted with insurance. [facility] may not be. Waiting to hear. SS faxed updated clinicals to [employer]. for Jensen/Pierre @
--- NOTE | 2024-06-17 14:28 | ESDS_ITS ---
Planned Discharge Date 06/17/24 DS: Providers Provider Date of admission: 06/12/24 16:13 Primary care physician: Terrell Randolph MD Admitting Provider: Lissett Peguero DO Attending Provider on Admission: Guicho Berger MD Consults: 06/12/24 14:23 Consult to Cardiology Routine Comment: New onset CHF, BNP >1k Consulting Provider: Vikram Delarosa 06/14/24 14:06 Referral Physical Therapy Routine Comment: Physician Instructions: Attending Provider on DC: Guicho Berger MD Discharging Provider: Guicho Berger MD DS: Diagnosis Problem List Completed Was Problem List Reviewed/Reconciled?: Yes Hospital Course Hospital Course Hospital course: This is a pleasant 64-year-old female PMHx of HTN, CVA 5 years ago, COVID- pneumonia, osteoporosis presented with shortness of breath and chest pain, admitted for acute decompensated heart failure with possible UTI. Continued on diuresis and ANTIBIOTICS for pneumonia and UTI. Overall symptoms improving. Echocardiogram showed EF 35-40%. Cath done on 06/15: Nonischemic cardiomyopathy, normal coronary arteries, no myocardial infarction or coronary artery disease. We initiated GDMT. Cardiology recommended stopping loop DIURETIC, continue GDMT. Patient will discharge to SNF for cardiac rehab and physical therapy. PATIENT INSTRUCTIONS: ? Follow-up with PCP within 1 week of discharge ? Follow-up with cardiology, Dr. Delarosa, within 1 week of discharge ? New medications have been prescribed, continue taking as below: ? Continue LASIX 40 mg daily ? Continue taking ATORVASTATIN 80 mg daily at night ? Continue taking DAPAGLIFLOZIN 5 mg daily in the morning ? Continue taking ENTRESTO 24-26 mg daily, do not take if systolic blood pressure is <120 ? Continue taking METOPROLOL 50 mg daily ? Continue taking SPIRONOLACTONE 25 mg daily ? Continue taking KEFLEX 500 mg twice daily for 2 days from today ? STOP taking MELOXICAM 7.5 mg ? STOP taking METOPROLOL 100 mg daily (new dose started as above) ? Continue taking TYLENOL 500 mg every 6 hours for pain ? Continue taking vitamin D3 2000 units weekly ? Continue taking CYCLOBENZAPRINE 10 mg twice daily ? Continue taking GABAPENTIN 800 mg daily at night ? Continue taking LOKELMA 10 g daily ? Continue taking NORTRIPTYLINE 100 mg daily at night ? Continue using oxygen as needed for shortness of breath ? Return to ED if symptoms worsen, persist or new symptoms develop ADMISSION DIAGNOSES: # Acute hypoxic respiratory failure 2/2 # HF exacerbation # Bilateral pleural effusion # Severe sepsis 2/2 E. coli UTI # Primary hypertension # Hx of CVA 5 years ago # Insomnia # Osteoporosis Patient case was discussed with attending, Guicho Berger MD and senior residents Dr. Salomon and Dr. Crane. Merlyn Dupont DO PGYI Time Spent with Patient Time attestation: Total time spent providing and/or coordinating discharge services: Greater than 35 minutes Exam Vital Signs Temp Pulse Resp BP Pulse Ox O2 Del Method O2 Flow Rate 97.0 F 81 18 113/73 95 Room Air 1 06/17/24 12:00 06/17/24 12:00 06/17/24 12:00 06/17/24 12:00 06/17/24 12:00 06/17/24 12:00 06/17/24 12:00 FiO2 40 06/17/24 12:00 Narrative Exam General: A/O x3, obese on NC Eyes: PERRL, EOMI. Anicteric, vision grossly intact. Ears: No ear pain, no ear discharge, Hearing grossly intact. Nose: No nasal discharge. Mouth/Throat: Dry mucous membranes, no redness, no lesions. Neck: Neck supple, non-tender, no cervical lymphadenopathy. Lungs: Clear JACKSON, No accessory muscle use. Cardio: Normal S1/S2, regular rhythm, 2/6 ejection systolic murmur, no JVD Abdomen: Soft, non-tender, no palpable masses, peristalsis present, no guarding or rebound. Extremities: Symmetrical, no significant deformities, no peripheral edema , non- tender, peripheral pulses presents. Skin: No rashes, no lesions, warm to touch. Neuro: No focal neurological deficits. motor and sensory intact Psych: Cooperative, appropriate mood and effect. Discharge Plan Plan Patient Disposition: Xfer Skilled Nsg Fac (SNF) Disposition Comment: [facility] Patient condition on transfer: Stable Prescriptions/Referrals Prescriptions/Med Rec: New metoprolol succinate 50 mg capsule,sprinkle,ER 24hr 50 mg PO QDAY 30 Days Qty: 30 0RF dapagliflozin propanediol 5 mg tablet 5 mg PO QAM 30 Days Qty: 30 0RF Entresto 24-26 mg tablet 1 tab PO DAILY 30 Days Qty: 30 0RF Rx Instructions: Do NOT take if systolic BP <120 spironolactone 25 mg tablet 25 mg PO QDAY 30 Days Qty: 30 0RF atorvastatin 80 mg tablet 80 mg PO HS 30 Days Qty: 30 0RF furosemide 40 mg Tablet 40 mg PO QDAY 30 Days Qty: 30 0RF Continued nortriptyline [Pamelor] 50 mg capsule 100 mg PO HS cyclobenzaprine 10 mg tablet 10 mg PO BID cholecalciferol (vitamin D3) 50 mcg (2,000 unit) capsule 50 mcg PO QWEEK acetaminophen 500 mg capsule 500 mg PO Q6H PRN (Reason: Breakthrough Pain, Mild) gabapentin 800 mg tablet 100 mg PO HS Lokelma 10 gram powder in packet 10 g PO DAILY Discontinued metoprolol succinate 100 mg tablet extended release 24 hr 100 mg PO HS meloxicam 7.5 mg tablet 7.5 mg PO HS Referrals: Terrell Randolph MD [Primary Care Provider] - Patient/Caregiver Discharge Instructions Other Discharge Activity Instructions:: ? Follow-up with PCP within 1 week of discharge ? Follow-up with cardiology, Dr. Delarosa, within 1 week of discharge ? New medications have been prescribed, continue taking as below: ? Continue taking ATORVASTATIN 80 mg daily at night ? Continue LASIX 40 mg daily in the morning ? Continue taking DAPAGLIFLOZIN 5 mg daily in the morning ? Continue taking ENTRESTO 24-26 mg daily, do not take if systolic blood pressure is <120 ? Continue taking METOPROLOL 50 mg daily ? Continue taking SPIRONOLACTONE 25 mg daily ? Continue taking KEFLEX 500 mg twice daily for 2 days from today ? STOP taking MELOXICAM 7.5 mg ? STOP taking METOPROLOL 100 mg daily (new dose started as above) ? Continue taking TYLENOL 500 mg every 6 hours for pain ? Continue taking vitamin D3 2000 units weekly ? Continue taking CYCLOBENZAPRINE 10 mg twice daily ? Continue taking GABAPENTIN 800 mg daily at night ? Continue taking LOKELMA 10 g daily ? Continue taking NORTRIPTYLINE 100 mg daily at night ? Continue using oxygen as needed for shortness of breath ? Return to ED if symptoms worsen, persist or new symptoms develop Education Materials: Low-Salt Choices, Exercise for a Healthier Heart, Coping with Heart Failure Print Language: Palestinian Stand Alone Forms: Elvia Award Info., Patient Portal Info Letter Discharge Order Discharge Orders: Discharge (Routine); Ordered 06/17/24 Ordered By: Merlyn Dupont Quality Discharge Quality Measures VTE prophylaxis Attestestation MD Attestation I reviewed labs, imaging, EKG, home medications and prior available records. Face to face evaluation was performed by me. I have personally examined the patient and discussed assessment and plan with the IM team. I reviewed the resident note and agree with the plan with exceptions as below. CHF exacerbation: Echocardiogram showed EF of 35 to 40%. Cardiology is following: Status post cardiac catheterization on 06/15 that showed nonobstructive CAD and EF of 25 to 30%. Resume Lasix 40 mg daily on 06/20. Sepsis secondary to acute UTI: Will switch to p.o. Keflex. Hypertension: Continue metoprolol. Started Entresto prior to discharge. Monitor BP. Social problem: She is pending SNF placement as [place]. Discussed with social worker psychiatric who is working on the case. Initially insurance declined but up on PT reevaluation she was accepted. Time spent is 40 minutes. More than 50% of the time was spent on patient education and coordination of care.
--- NOTE | 2024-06-17 15:20 | PD.RESPRO ---
Documentation for date of: 06/17/24 Subjective Subjective Interval history: No acute overnight events. Currently off of oxygen, not requiring oxygen at night. Working with physical therapy, ambulating with walker and some assistance, on room air satting well, however shortly healing weakness and fatigue. Denies fever, chills, headaches, chest pain, sob, cough, GI or urinary symptoms. Exam Vital Signs Temp Pulse Resp BP Pulse Ox O2 Del Method O2 Flow Rate 97.9 F 58 L 17 154/71 H 100 Room Air 1 06/17/24 14:31 06/17/24 14:31 06/17/24 14:31 06/17/24 14:31 06/17/24 14:31 06/17/24 14:31 06/17/24 14:31 FiO2 40 06/17/24 14:31 Narrative Exam General: A/O x3, obese on NC Eyes: PERRL, EOMI. Anicteric, vision grossly intact. Ears: No ear pain, no ear discharge, Hearing grossly intact. Nose: No nasal discharge. Mouth/Throat: Dry mucous membranes, no redness, no lesions. Neck: Neck supple, non-tender, no cervical lymphadenopathy. Lungs: Clear JACKSON, No accessory muscle use. Cardio: Normal S1/S2, regular rhythm, 2/6 ejection systolic murmur, no JVD Abdomen: Soft, non-tender, no palpable masses, peristalsis present, no guarding or rebound. Extremities: Symmetrical, no significant deformities, no peripheral edema , non-tender, peripheral pulses presents. Skin: No rashes, no lesions, warm to touch. Neuro: No focal neurological deficits. motor and sensory intact Psych: Cooperative, appropriate mood and effect. Objective Labs 06/15/24 05:32 06/16/24 04:30 ABG Interpretation ABG results: 06/12/24 11:25 ABG pH 7.45 ABG pCO2 34 ABG pO2 135 H ABG HCO3 23 ABG O2 Saturation 98 ABG Base Excess 0 Quality Measures Quality Measures VTE prophylaxis Advance care planning discussed with:: patient Assessment & Plan Assessment Current Active Medications: Generic Name Dose Route Start Last Admin Trade Name Freq PRN Reason Stop Dose Admin Acetaminophen 650 mg 06/12/24 14:10 06/16/24 04:45 Acetaminophen 325 Mg Tablet PO 07/12/24 14:09 650 mg Q6H PRN Administration Fever >100.3 Aspirin 81 mg 06/16/24 10:45 06/17/24 08:16 Aspirin Ec 81 Mg Tabec PO 07/16/24 10:44 81 mg QDAY STEPAN Administration Atorvastatin Calcium 80 mg 06/16/24 21:00 06/16/24 21:28 Atorvastatin Calcium 20 Mg Tablet PO 07/16/24 20:59 Not Given HS STEPAN Bismuth Subsalicylate 1 tab 06/15/24 16:15 06/16/24 21:33 Bismuth Subsalicyl 1 Tablet (Pepto-Bismol) PO 07/15/24 16:14 1 tab Q1HR PRN Administration UPSET STOMACH/INDIGESTION Cephalexin HCl 500 mg 06/17/24 09:00 06/17/24 08:15 Cephalexin 250 Mg Capsule PO 06/19/24 08:59 500 mg BID STEPAN Administration Cyclobenzaprine HCl 10 mg 06/16/24 21:00 06/17/24 08:15 Cyclobenzaprine 5 Mg Tablet PO 07/16/24 20:59 10 mg BID STEPAN Administration Dapagliflozin 5 mg 06/15/24 15:00 06/17/24 08:15 Dapagliflozin Propanediol 5 Mg Tablet PO 07/15/24 14:59 5 mg QAM STEPAN Administration Furosemide 40 mg 06/20/24 08:00 Furosemide 40 Mg Tablet PO 07/20/24 07:59 QDAY STEPAN Gabapentin 100 mg 06/13/24 21:00 06/16/24 21:25 Gabapentin 100 Mg Capsule PO 07/13/24 20:59 100 mg HS STEPAN Administration Melatonin 3 mg 06/13/24 21:00 06/16/24 21:25 Melatonin 3 Mg Tablet PO 07/13/24 20:59 3 mg HS STEPAN Administration Metoprolol Succinate 50 mg 06/15/24 21:00 06/16/24 21:25 Metoprolol Succinate Xl 25 Mg Tabcr PO 07/15/24 20:59 50 mg HS STEPAN Administration Non-Formulary Medication 10 gm 06/17/24 09:00 06/17/24 08:16 Sodium Zirconium Cyclosilicate [Lokelma] PO 07/17/24 08:59 Not Given DAILY STEPAN Nortriptyline HCl 100 mg 06/16/24 21:00 06/16/24 21:40 Nortriptyline Hcl 25 Mg Capsule PO 07/16/24 20:59 100 mg HS STEPAN Administration Ondansetron HCl 4 mg 06/12/24 14:15 Ondansetron Inj 2 Mg/Ml Inj 2 Ml IV 07/12/24 14:14 Q6H PRN NAUSEA OR VOMITING Protocol Pantoprazole Sodium 40 mg 06/13/24 09:00 06/17/24 08:10 Pantoprazole Inj 40 Mg Vial IVP 07/13/24 08:59 Not Given QDAY STEPAN Sacubitril/Valsartan 1 tab 06/15/24 21:00 06/17/24 08:15 Sacubitril 24 Mg/Valsartan 26 Mg Tablet PO 07/15/24 20:59 1 tab BID STEPAN Administration Spironolactone 12.5 mg 06/19/24 09:00 Spironolactone 25 Mg Tablet PO 07/19/24 08:59 QDAY STEPAN Vitamin B Complex/Vit C/Folic Acid 1 tab 06/17/24 10:30 06/17/24 10:49 Vit B12/Vit C/Fa (Nephrovite) Tablet PO 07/17/24 10:29 1 tab Q48H STEPAN Administration Vitamin D 2,000 iu 06/23/24 09:00 Cholecalciferol (Vitamin D3) 1,000 Iu Tablet PO 07/23/24 08:59 QWEEK STEPAN Plan In summary: 64-year-old female PMHx of HTN, CVA 5 years ago, COVID-pneumonia, osteoporosis presented with shortness of breath and chest pain, admitted for acute decompensated heart failure with possible UTI. Continued on diuresis and ANTIBIOTICS for pneumonia and UTI. Overall symptoms improving. Echocardiogram showed EF 35-40%. Cath done on 06/15: Nonischemic cardiomyopathy, normal coronary arteries, no myocardial infarction or coronary artery disease. We initiated GDMT. Cardiology recommended stopping loop DIURETIC, continue GDMT. Currently pending SNF placement. # Acute hypoxic respiratory failure 2/2 # HF exacerbation # Bilateral pleural effusion Exam disorder presents for 2 days with significant chest pressure since then. CXR mild to moderate CHF, vascular congestion, large right pleural effusion and small left pleural effusion Initially on BiPAP, now on 1 L NC, breathing okay although has some orthopnea laying flat. Continued on LASIX, -7.6 L overall Lower extremity edema resolved, lungs are clear Attempt for paracentesis showed insufficient pleural fluid be drained safely. Echocardiogram showed EF 30 to 35%, ventral septal dyssynchrony [id number] of 4, HAS-BLED 4, hx of CVA per patient, PLAVIX contraindicated Cardiology recommended ASA and STATIN, will continue will start PLAVIX after [employer] Cath done on 06/15: Nonischemic cardiomyopathy, normal coronary arteries, no myocardial infarction or coronary artery disease NYHA : Stage C , Class III at baseline We started guideline directed medical therapy as below ? Stopped LASIX, cardiology recommendations, will not need home LASIX ? Continue DAPAGLIFLOZIN 5 mg p.o. QAM ? Continue METOPROLOL 50 mg twice ? Continue ASPIRIN 81 mg daily ? Continue ATORVASTATIN 80 mg daily HS ? Continue ENTRESTO 1 tablet p.o. BID ? Continue SPIRONOLACTONE 25 mg daily ? Stop METOPROLOL 100 mg daily for tachycardia ? Fluid restriction 1500 cc ? Salt restriction ? Strict LORENZA's ? Repleted potassium and magnesium # Severe sepsis 2/2 E. coli UTI ? improving Admission 09/13 SIRS positive with tachycardia, tachypnea and leukocytosis UA positive for UTI, urine grew pansensitive E. coli 24-hour. Repeat blood culture negative Continued on ABX, leukocytosis improving 12.0, tachycardia improving 48 hours blood culture negative S/p 3 days DOXYCYCLINE (06/12 to 06/14) ? Discontinued CEFTRIAXONE 1 g daily (06/12 to 06/16) ? Started KEFLEX for 2 more days (06/16 to 06/18) ? Follow-up cultures ? Holding fluids 2/2 CHF exacerbation # Primary hypertension # Hx of CVA 5 years ago Chronic condition Lipid panel normal Blood pressure well-controlled likely due to diuretics Patient complained of headache and intermittent bilateral knee pain, even addressed ? Continue METOPROLOL 50 mg daily ? Continue ENTRESTO as above ? Daily vitals # Insomnia ? Resumed home GABAPENTIN 100 mg HS ? Started MELATONIN 3 mg p.o. HS # Osteoporosis To be managed outpatient Health maintenance Diet: Cardiac GI prophylaxis: PROTONIX DVT prophylaxis: Holding HEPARIN Antibiotics: DOXYCYCLINE, CEFTRIAXONE CODE STATUS: Full code Disposition: Pending cath and cardio recommendations Patient case was discussed with attending, Dr. Ab CISSE and senior residents Dr. Salomon and Dr. Crane. Merlyn Dupont DO PGYI Attending Provider Attestation/Addendum I reviewed labs, imaging, EKG, home medications and prior available records. Face to face evaluation was performed by me. I have personally examined the patient and discussed assessment and plan with the IM team. I reviewed the resident note and agree with the plan with exceptions as below. See discharge summary.
--- NOTE | 2024-06-17 16:26 | PC.SS ---
SS received authorization from insurance [employer] for [facility]. SS notified patient. Patient agreealbe. Patient to d/c via [facility]. [facility]
== END 2024-06-17 18:46 | disposition skilled nursing facility (03) | DRG 871 ==
LOC: SERX 13:30 → SERHOLD 15:06 → S3NX 18:47
PROVIDERS: Internal Medicine Cardiovascular Disease; Student in an Organized Health Care Education/Training Program; Admitting Provider Internal Medicine; Emergency Provider Emergency Medicine; PCP Family Medicine; Visit Provider Student in an Organized Health Care Education/Training Program
PROC: 4A023N8 Measurement of Cardiac Sampling and Pressure, Bilateral, Percutaneous Approach (ICD-10-PCS; principal; 2024-06-15 11:30)
DX: A41.9 Sepsis, unspecified organism (principal); I50.23 Acute on chronic systolic (congestive) heart failure; J96.01 Acute respiratory failure with hypoxia; J18.9 Pneumonia, unspecified organism; N39.0 Urinary tract infection, site not specified; I42.8 Other cardiomyopathies; R65.20 Severe sepsis without septic shock; I11.0 Hypertensive heart disease with heart failure; Z86.16 Personal history of COVID-19; Z86.73 Personal history of transient ischemic attack (TIA), and cerebral infarction without residual deficits; M81.0 Age-related osteoporosis without current pathological fracture; Z98.84 Bariatric surgery status; I48.91 Unspecified atrial fibrillation; I16.0 Hypertensive urgency; G47.00 Insomnia, unspecified; I44.7 Left bundle-branch block, unspecified; G62.9 Polyneuropathy, unspecified; B96.20 Unspecified Escherichia coli [E. coli] as the cause of diseases classified elsewhere
CPT/HCPCS: 36415; 36600; 71045; 76999; 80053; 80061; 80069; 81001; 82803; 83605; 83735; 83880; 84100; 84145; 84443; 84484; 85025; 85610; 85730; 87040; 87077; 87086; 87186; 87811; 93005; 93225; 93306; 94660; 96365; 96367; 96372; 96375; 97162; 99152; 99153; 99285; A4649; C1769; C1887; C1894; J0171; J0360; J0456; J0461; J0696; J1643; J1940; J2250; J2310; J2371; J2470; J3010; J3475; J3490; J7050; J8499; Q9967; A9270; J1644; J2305

== ENCOUNTER 2025-03-04 10:24 | Emergency (ER) | payer MEDICARE, MEDICAID, SELFPAY ==
[2025-03-04 11:22] VITALS: BP 137/85; PULSE 75; RESP 19; TEMP 36.4; O2SAT 96
--- NOTE | 2025-03-04 11:57 | PD.EDRME ---
Rapid Medical Screening Exam RME Arrival date/time: 03/04/25 10:24 Chief Complaint: Skin/Abscess/Foreign Body Time Seen by Provider: 03/04/25 11:56 Vital signs: Vital Signs Temperature 97.6 F 03/04/25 11:22 Pulse Rate 75 03/04/25 11:22 Respiratory Rate 19 03/04/25 11:22 Blood Pressure 137/85 H 03/04/25 11:22 Pulse Oximetry (%) 96 03/04/25 11:22 Oxygen Delivery Method Room Air 03/04/25 11:22 Vital signs reviewed by provider: Yes RME Narrative: Patient is a 59-year-old female with medical history notable for CHF, sent to the emergency department concerns for swelling to the back of her head. Patient noticed what looked like a spider bite and has become painful, red, warm and has a central area of clearing. Denies fevers chills nausea vomiting skin picking, history of IV drug use. 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
[2025-03-04] MEDS: TRIMETHOPRIM/SULFA 160/800 DS TABLET 1 TAB PO (12:46)
[2025-03-04] MEDS: LIDOCAINE HCL 1% 20 ML VIAL 5 ML INFL (12:46)
[2025-03-04 12:49] VITALS: BMI 30.9
--- NOTE | 2025-03-31 22:59 | PD.EDSKIN ---
ED Skin Abcess FB-RME/HPI General Chief complaint: Skin/Abscess/Foreign Body Stated complaint: POSSIBLE SPIDER BITE TO R HEAD ON THURSDAY Time Seen by Provider: 03/04/25 11:56 Arrival date/time: 03/04/25 10:24 Limitations: no limitations RME / HPI RME / HPI narrative: Patient is a 59-year-old female with medical history notable for CHF, sent to the emergency department concerns for swelling to the back of her head. Patient noticed what looked like a spider bite and has become painful, red, warm and has a central area of clearing. Denies fevers chills nausea vomiting skin picking, history of IV drug use. 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 Related Data Home Medications ?Medication ?Instructions ?Recorded ?Confirmed acetaminophen 500 mg capsule 500 mg PO Q6H PRN Breakthrough 05/24/24 06/12/24 Pain, Mild cholecalciferol (vitamin D3) 50 50 mcg PO QWEEK 05/24/24 06/12/24 mcg (2,000 unit) capsule cyclobenzaprine 10 mg tablet 10 mg PO BID 05/24/24 06/12/24 nortriptyline 50 mg capsule 100 mg PO HS 05/24/24 06/13/24 (Pamelor) gabapentin 800 mg tablet 100 mg PO HS 06/12/24 06/13/24 sodium zirconium cyclosilicate 10 10 g PO DAILY 06/12/24 06/12/24 gram oral powder packet (Lokelma) Previous Rx's ?Medication ?Instructions ?Recorded sulfamethoxazole 400 1 tab PO BID #14 tabs 03/04/25 mg-trimethoprim 80 mg tablet (Bactrim) Allergies Allergy/AdvReac Type Severity Reaction Status Date / Time Penicillins Allergy Severe Hives Verified 03/04/25 10:25 ED Exam General Limitations: Present no limitations Head Head exam: Present atraumatic and other (1 cm raised erythematous fluctuant area posterior occiput) Eye Eye exam: Present normal appearance, PERRL and EOMI; Absent scleral icterus or conjunctival injection ENT ENT exam: Present normal exam, normal oropharynx and mucous membranes moist; Absent mucous membranes dry or TM's normal bilaterally Neck Neck exam: Present normal inspection, full ROM and trachea midline; Absent tenderness or meningismus Chest Chest inspection: Present normal inspection and symmetric chest wall rise Respiratory Respiratory exam: Present normal lung sounds bilaterally; Absent respiratory distress, wheezes or stridor Cardiovascular Cardiovascular exam: Present regular rate and normal rhythm Abdominal Exam Abdominal exam: Present soft; Absent distention, tenderness, guarding or rebound Back Exam Back exam: Present normal inspection Neurological Exam Neurological exam: Present alert, oriented X3 and normal gait Skin Skin exam: Present warm and intact Course Quality Measures none Orders Category Date Time Status Lidocaine 1% 20 ml [Xylocaine 1% 20 ML] Med 03/04/25 11:57 Discontinued 5 ml INFL X1 ONE Trimethoprim/Sulfa 160/800 Ds [Bactrim Ds] Med 03/04/25 11:56 Discontinued 1 tab PO X1 ONE Vital Signs Vital signs: Vital Signs Temperature 97.6 F 03/04/25 11:22 Pulse Rate 75 03/04/25 11:22 Respiratory Rate 19 03/04/25 11:22 Blood Pressure 137/85 H 03/04/25 11:22 Pulse Oximetry (%) 96 03/04/25 11:22 Oxygen Delivery Method Room Air 03/04/25 11:22 Skin / Abscess / Foreign Body MDM Narrative MDM Narrative:: patient presents with abscess on scalp, no surrounding cellulitis. performed I and d, provided abx. Incision and Drainage Procedure Note Indication: _abscess Site: posterior occiput Anesthesia: _1% lidocaine Volume of specimen removed: 3 purulent fluid Estimated blood loss: 0 cc Estimated Blood Loss: None After verbal consent by myself with risks that include nerve, vessel or injury to underlying structures. The area was prepared in sterile fashion.? The affected location was anesthetized with local anesthesia in a field block manner and the abscess was incised using an 11-blade scalpel. Loculations were broken up using blunt dissection and cavity irrigated with normal saline. A sterile dressing was applied. The patient tolerated the procedure well and there were no complications. Patient data External records reviewed:: [facility] previous records Clinical information provided by:: patient Social determinants that could affect healthcare access:: none Patient has the following chronic illnesses:: see hpi How is presenting disease/condition affected by chronic disease/condition?: no chronic disease Evaluation data The following diagnostics were reviewed and interpreted by me:: other (specify) Lab and/or radiology exams considered but not ordered:: none Interpretation Summary: see above Medications / Prescriptions Medications or Prescriptions considered but not ordered:: none Medication administrations:: Medication Administration History Discontinued Medications Lidocaine HCl (Lidocaine Hcl 1% 20 Ml Vial) 5 ml INFL X1 ONE Stop: 03/04/25 11:58 Last Admin: 03/04/25 12:46 Dose: 5 ml Documented By: Comments: Trimethoprim/Sulfamethoxazole (Trimethoprim/Sulfa 160/800 Ds Tablet) 1 tab PO X1 ONE Stop: 03/04/25 11:57 Last Admin: 03/04/25 12:46 Dose: 1 tab Documented By: see above Consultations Consultation(s) initiated? (list below): No Diagnosis Skin/Abscess Differential Diagnosis: abscess of skin or subcutaneous tissue and cellulitis Most likely diagnosis given after review of the tests above:: abscess Admission Indicated Admission indicated?: not indicated Admission Request Was there a request for admission?: No Disposition Plan Disposition Plan: Discharge Discharge Attestation Discharge Attestation: The patient and all family members were given an opportunity to ask questions and understood the discharge instructions. Discharge instructions specifically effects, indications for sooner follow up or return to the emergency department, and the expected course of current diagnosis. Patient condition: Stable Discharge Plan Plan Patient Disposition: HOME (Self Care) Prescriptions/Referrals Prescriptions/Med Rec: New sulfamethoxazole-trimethoprim [Bactrim] 400-80 mg tablet 1 tab PO BID Qty: 14 0RF No Action nortriptyline [Pamelor] 50 mg capsule 100 mg PO HS cyclobenzaprine 10 mg tablet 10 mg PO BID cholecalciferol (vitamin D3) 50 mcg (2,000 unit) capsule 50 mcg PO QWEEK acetaminophen 500 mg capsule 500 mg PO Q6H PRN (Reason: Breakthrough Pain, Mild) gabapentin 800 mg tablet 100 mg PO HS Lokelma 10 gram powder in packet 10 g PO DAILY Referrals: Terrell Randolph MD [Primary Care Provider] - In 1 week Problem List Clinical Impression: Abscess Patient/Caregiver Discharge Instructions Education Materials: Abscess Drainage Additional Instructions: Please take antibiotics as prescribed. Monitor for signs of worsening infection. Is normal for some drainage to come from the abscess cavity. If you develop increased purulence, fever or any other symptom of concern please return to the emergency room immediately Print Language: Lao Stand Alone Forms: Elvia Award Info., Patient Portal Info Letter
== END 2025-03-04 14:37 | disposition home or self-care (01) ==
PROVIDERS: Emergency Provider Emergency Medicine; PCP Family Medicine
DX: L02.811 Cutaneous abscess of head [any part, except face] (principal)
CPT/HCPCS: 99283; J3490; A9270